=== PATIENT | female | born 1975 | race Caucasian/White ===

== ENCOUNTER → 2019-01-20 | Day surgery (SDC) | payer OTHER ==
[2019-01-17 15:55] VITALS: BMI 34.2
[~2019-01-20] MED LIST: LACTATED RINGERS 1,000 ML IV SCH; LIDOCAINE 1% INJ 10MG/ML (20 ML MDV) ONE; PROPOFOL 10 MG/ML 20 ML VIAL IV ONE
[2019-01-20 11:43] VITALS: TEMP 97.2
--- NOTE | 2019-01-20 12:40 | P.GSHP ---
History of Present Illness H&P Date: 01/20/19 Chief Complaint: Iron deficiency anemia history of ulcers blood in stool Patient here today for upper and lower endoscopy. Recently found to be anemic. Patient is a history of chronic anemia. Recently had stool test which was positive for blood. History of ulcers. Takes antiacids daily. Past Medical History Past Medical History: GERD/Reflux, GI Bleed Additional Past Medical History / Comment(s): PAT HX OF HEAD TRAUMA, ULCERS, ANEMIA, + HEMOCCULT, FREQ BRONCHITIS AND SINUS AND EAR INFECTIONS, ALSO HAS HAD BLOOD IN STOOL, VERTIGO History of Any Multi-Drug Resistant Organisms: None Reported Past Surgical History: Section, Orthopedic Surgery Additional Past Surgical History / Comment(s): C-SEC X 2. COLONOSCOPY/EGD. RT CTR Past Anesthesia/Blood Transfusion Reactions: No Reported Reaction Smoking Status: Current every day smoker - Past Family History Mother Family Medical History: No Reported History Medications and Allergies Home Medications Medication Instructions Recorded Confirmed Type Albuterol Sulfate [Albuterol 2 puff PO Q6H PRN 01/17/19 01/20/19 History Sulfate Hfa] Beclomethasone Dipropionate [Qvar 1 puff INHALATION DAILY PRN 01/17/19 01/20/19 History 40 mcg Redihaler] Cholecalciferol [Vitamin D3 (25 1,000 units PO AC-LUNCH 01/17/19 01/20/19 History Mcg = 1000 Iu)] Diclofenac Sodium [Voltaren] 50 mg PO BID 01/17/19 01/20/19 History FLUoxetine HCL [PROzac] 40 mg PO AC-LUNCH 01/17/19 01/20/19 History Folic Acid 0.4 mg PO AC-LUNCH 01/17/19 01/20/19 History Loratadine 10 mg PO AC-LUNCH 01/17/19 01/20/19 History Omeprazole 20 mg PO AC-LUNCH 01/17/19 01/20/19 History Topiramate [Topamax] 100 mg PO AC-LUNCH 01/17/19 01/20/19 History busPIRone HCl [Buspar] 10 mg PO TID 01/17/19 01/20/19 History Allergies Allergy/AdvReac Type Severity Reaction Status Date / Time No Known Allergies Allergy Verified 01/20/19 11:46 Surgical - Exam Vital Signs Temp Pulse Resp BP Pulse Ox 97.2 F L 86 16 122/60 96 01/20/19 11:39 01/20/19 11:39 01/20/19 11:39 01/20/19 11:39 01/20/19 11:39 Physical exam: General: Well-developed, well-nourished HEENT: Normocephalic, sclerae nonicteric Abdomen: Nontender, nondistended Extremities: No edema Neuro: Alert and oriented Assessment and Plan (1) Blood in stool Narrative/Plan: Will proceed with upper and lower endoscopy Current Visit: Yes Status: Acute Code(s): K92.1 - MELENA SNOMED Code(s): 555537052
--- NOTE | 2019-01-20 12:58 | P.PCN ---
Date of Procedure: 01/20/19 Procedure(s) Performed: PREOPERATIVE DIAGNOSIS: Blood in stool, anemia POSTOPERATIVE DIAGNOSIS: Gastritis, small hiatal hernia, normal colonoscopy PROCEDURE: 1. EGD with biopsy 2. Colonoscopy ANESTHESIA: MAC SURGEON: Oni Mckeon M.D. SPECIMENS: Antrum ENDOSCOPIC PROCEDURE: The patient was on the endoscopy table in the left decubitus position. The Olympus gastroscope was inserted into the oropharynx and passed under direct visualization to the region of the third portion of the duodenum. From that point the scope was slowly withdrawn inspecting all surfaces carefully. There were no neoplastic inflammatory or polypoid lesions throughout the duodenum. The pylorus was widely patent. The stomach was carefully inspected. There was mild gastritis present. A biopsy of the antrum took place to rule out H. pylori. Retroflexion revealed a small hiatal hernia. The GE junction was present 1.5 cm above the diaphragmatic hiatus. The remainder the esophagus examined appeared normal. The patient was kept on the endoscopy table in the left decubitus position. The Olympus colonoscope was inserted into the anus and passed under direct visualization to the base of the cecum. The appendiceal orifice was visualized. From that point the scope was slowly withdrawn inspecting all surfaces carefully. There were no neoplastic inflammatory or polypoid lesions throughout the cecum, ascending, transverse, descending, sigmoid and rectum. There was no visible diverticulosis noted. Digital rectal examination was normal. The patient was taken to the recovery room in stable condition per anesthesia guidelines. RECOMMENDATIONS: Increase fiber. Follow-up colonoscopy in 10 years. Continue anemia workup.
[2019-01-20 13:22] VITALS: BP 119/62; PULSE 77; RESP 17
== END | disposition home or self-care (01) ==
LOC: ORWHC2ENDO 11:24
PROVIDERS: ATTEND Surgery
DX: K29.70 Gastritis, unspecified, without bleeding (principal); K44.9 Diaphragmatic hernia without obstruction or gangrene; D50.9 Iron deficiency anemia, unspecified; F17.200 Nicotine dependence, unspecified, uncomplicated; K21.9 Gastro-esophageal reflux disease without esophagitis; K31.9 Disease of stomach and duodenum, unspecified; Z79.899 Other long term (current) drug therapy
CPT/HCPCS: 81025; 88305; 45378; 43239; J2001; J2704

== ENCOUNTER 2019-02-11 20:13 | Emergency (ER) | payer OTHER ==
--- NOTE | 2019-02-11 20:42 | ED ---
Psych HPI - General Source: patient, family, RN notes reviewed, old records reviewed Mode of arrival: ambulatory - History of Present Illness MD Complaint: suicidal ideation, feels depressed, other (Patient appears intoxicated) -: unknown Associated Psychiatric Symptoms: depression, suicidal ideation History of same: Yes Quality: constant, getting worse Improves With: none Worsens With: alcohol Context: recent alcohol abuse Associated Symptoms: denies other symptoms Treatments Prior to Arrival: placed on mental health hold If Self Harm: admits thoughts of self harm, has plan <Zay Lagunas - Last Filed: 02/11/19 23:35> <Naren Armstrong - Last Filed: 02/12/19 11:51> - General Chief Complaint: Psychiatric Symptoms Stated Complaint: mental health Time Seen by Provider: 02/11/19 20:41 - History of Present Illness Initial Comments: This is a 43-year-old female the ER for evaluation. Patient initially told triage that she was here for evaluation regards to mental health suicidal, patient admits that she does not feel well she is vomiting and pain blood. Hemoglobin is very low as well as low patient passing through both. Patient denies any drugs, doesn't to drinking alcohol this morning. Denies any pain. (Zay Lagunas) - Related Data Home Medications Medication Instructions Recorded Confirmed Albuterol Sulfate [Albuterol 2 puff INHALATION RT-Q6H PRN 01/17/19 02/12/19 Sulfate Hfa] Beclomethasone Dipropionate [Qvar 1 puff INHALATION RT-BID 01/17/19 02/12/19 40 mcg Redihaler] Cholecalciferol [Vitamin D3 (25 1,000 units PO AC-LUNCH 01/17/19 02/12/19 Mcg = 1000 Iu)] Diclofenac Sodium [Voltaren] 50 mg PO BID 01/17/19 02/12/19 FLUoxetine HCL [PROzac] 40 mg PO DAILY 01/17/19 02/12/19 Folic Acid 0.4 mg PO DAILY 01/17/19 02/12/19 Loratadine 10 mg PO DAILY 01/17/19 02/12/19 Omeprazole 20 mg PO DAILY 01/17/19 02/12/19 Topiramate [Topamax] 50 mg PO BID 01/17/19 02/12/19 busPIRone HCl [Buspar] 10 mg PO TID 01/17/19 02/12/19 Allergies Allergy/AdvReac Type Severity Reaction Status Date / Time No Known Allergies Allergy Verified 02/12/19 11:12 Review of Systems ROS Other: All systems not noted in ROS Statement are negative. <Zay Lagunas - Last Filed: 02/11/19 23:35> ROS Other: All systems not noted in ROS Statement are negative. <Naren Armstrong - Last Filed: 02/12/19 11:51> ROS Statement: Those systems with pertinent positive or pertinent negative responses have been documented in the HPI. Past Medical History Past Medical History: GERD/Reflux, GI Bleed Additional Past Medical History / Comment(s): PAT HX OF HEAD TRAUMA, ULCERS, ANEMIA, + HEMOCCULT, FREQ BRONCHITIS AND SINUS AND EAR INFECTIONS, ALSO HAS HAD BLOOD IN STOOL, VERTIGO History of Any Multi-Drug Resistant Organisms: None Reported Past Surgical History: Section, Orthopedic Surgery Additional Past Surgical History / Comment(s): C-SEC X 2. COLONOSCOPY/EGD. RT CTR Past Anesthesia/Blood Transfusion Reactions: No Reported Reaction Past Psychological History: Anxiety, Depression Smoking Status: Current every day smoker Past Alcohol Use History: None Reported, Daily, Heavy Past Drug Use History: None Reported - Past Family History Mother Family Medical History: No Reported History <Zay Lagunas - Last Filed: 02/11/19 23:35> General Exam Limitations: no limitations General appearance: alert, in no apparent distress, appears intoxicated Head exam: Present: atraumatic, normocephalic, normal inspection Eye exam: Present: normal appearance, PERRL, EOMI. Absent: scleral icterus, conjunctival injection, periorbital swelling ENT exam: Present: normal exam, mucous membranes moist Neck exam: Present: normal inspection. Absent: tenderness, meningismus, lymphadenopathy Respiratory exam: Present: normal lung sounds bilaterally. Absent: respiratory distress, wheezes, rales, rhonchi, stridor Cardiovascular Exam: Present: regular rate, normal rhythm, normal heart sounds. Absent: systolic murmur, diastolic murmur, rubs, gallop, clicks GI/Abdominal exam: Present: soft, normal bowel sounds. Absent: distended, tenderness, guarding, rebound, rigid Extremities exam: Present: normal inspection, full ROM, normal capillary refill. Absent: tenderness, pedal edema, joint swelling, calf tenderness Back exam: Present: normal inspection Neurological exam: Present: alert, oriented X3, CN II-XII intact Psychiatric exam: Present: normal affect, normal mood Skin exam: Present: warm, dry, intact, normal color. Absent: rash <Zay Lagunas - Last Filed: 02/11/19 23:35> Course <Zay Lagunas - Last Filed: 02/11/19 23:35> Vital Signs 02/11/19 02/12/19 02/12/19 20:26 06:52 08:05 Temperature 98.5 F Pulse Rate 101 H 67 61 Respiratory 20 16 16 Rate Blood Pressure 132/71 110/66 130/70 O2 Sat by Pulse 95 98 97 Oximetry - Reevaluation(s) Reevaluation #1: 02/11/19 23:35 Medical record reviewed (Zay Lagunas) Reevaluation #2: 02/11/19 23:35 No findings on medical testing, patient's medical clear for psych once sober (Zay Lagunas) Medical Decision Making - Lab Data Result diagrams: 02/11/19 22:00 02/11/19 22:00 <Zay Lagunas - Last Filed: 02/11/19 23:35> - Lab Data Result diagrams: 02/11/19 22:00 02/11/19 22:00 <Naren Armstrong - Last Filed: 02/12/19 11:51> - Medical Decision Making Patient seen by mental health services with plans to transfer patient. Patient reevaluated by myself, Dr. Armstrong. Patient resting comfortably in bed. Abdomen soft and nontender. No physical complaints at this time. Patient does admit to feeling depressed and having suicidal thoughts. Positive clinical certificate completed. (Naren Armstrong) - Lab Data Lab Results 02/11/19 02/11/19 02/11/19 Range/Units 22:00 22:00 22:00 WBC 6.3 (3.8-10.6) k/uL RBC 4.32 (3.80-5.40) m/uL Hgb 11.2 L (11.4-16.0) gm/dL Hct 35.9 (34.0-46.0) % MCV 83.1 (80.0-100.0) fL MCH 26.0 (25.0-35.0) pg MCHC 31.3 (31.0-37.0) g/dL RDW 18.0 H (11.5-15.5) % Plt Count 225 (150-450) k/uL Neutrophils % 46 % Lymphocytes % 43 % Monocytes % 5 % Eosinophils % 1 % Basophils % 1 % Neutrophils # 2.9 (1.3-7.7) k/uL Lymphocytes # 2.8 (1.0-4.8) k/uL Monocytes # 0.3 (0-1.0) k/uL Eosinophils # 0.1 (0-0.7) k/uL Basophils # 0.0 (0-0.2) k/uL Hypochromasia Slight Anisocytosis Slight Sodium 144 (137-145) mmol/L Potassium 3.8 (3.5-5.1) mmol/L Chloride 109 H (98-107) mmol/L Carbon Dioxide 24 (22-30) mmol/L Anion Gap 11 mmol/L BUN 15 (7-17) mg/dL Creatinine 0.79 (0.52-1.04) mg/dL Est GFR (CKD-EPI)AfAm >90 (>60 ml/min/1.73 sqM) Est GFR (CKD-EPI)NonAf >90 (>60 ml/min/1.73 sqM) Glucose 92 (74-99) mg/dL Calcium 8.3 L (8.4-10.2) mg/dL Phosphorus 3.0 (2.5-4.5) mg/dL Magnesium 1.9 (1.6-2.3) mg/dL Total Bilirubin 0.2 (0.2-1.3) mg/dL AST 28 (14-36) U/L ALT 13 (9-52) U/L Alkaline Phosphatase 63 (38-126) U/L Creatine Kinase 84 (30-135) U/L Troponin I (0.000-0.034) ng/mL NT-Pro-B Natriuret Pep pg/mL Total Protein 7.6 (6.3-8.2) g/dL Albumin 4.2 (3.5-5.0) g/dL TSH 5.150 H (0.465-4.680) mIU/L Urine Color Yellow Urine Appearance Clear (Clear) Urine pH 5.5 (5.0-8.0) Ur Specific [place] 1.025 (1.001-1.035) Urine Protein 1+ H (Negative) Urine Glucose (UA) Negative (Negative) Urine Ketones Negative (Negative) Urine Blood Large H (Negative) Urine Nitrite Negative (Negative) Urine Bilirubin Negative (Negative) Urine Urobilinogen <2.0 (<2.0) mg/dL Ur Leukocyte Esterase Negative (Negative) Urine RBC 1 (0-5) /hpf Urine WBC 3 (0-5) /hpf Ur Squamous Epith Cells 2 (0-4) /hpf Urine Mucus Many H (None) /hpf Salicylates <1.0 mg/dL Urine Opiates Screen Not Detected (NotDetected) Ur Oxycodone Screen Not Detected (NotDetected) Urine Methadone Screen Not Detected (NotDetected) Ur Propoxyphene Screen Not Detected (NotDetected) Acetaminophen <10.0 ug/mL Ur Barbiturates Screen Not Detected (NotDetected) U Tricyclic Antidepress Not Detected (NotDetected) Ur Phencyclidine Scrn Not Detected (NotDetected) Ur Amphetamines Screen Not Detected (NotDetected) U Methamphetamines Scrn Not Detected (NotDetected) U Benzodiazepines Scrn Detected H (NotDetected) Urine Cocaine Screen Not Detected (NotDetected) U Marijuana (THC) Screen Detected H (NotDetected) Serum Alcohol 263 H* mg/dL 02/11/19 02/11/19 Range/Units 22:00 22:00 WBC (3.8-10.6) k/uL RBC (3.80-5.40) m/uL Hgb (11.4-16.0) gm/dL Hct (34.0-46.0) % MCV (80.0-100.0) fL MCH (25.0-35.0) pg MCHC (31.0-37.0) g/dL RDW (11.5-15.5) % Plt Count (150-450) k/uL Neutrophils % % Lymphocytes % % Monocytes % % Eosinophils % % Basophils % % Neutrophils # (1.3-7.7) k/uL Lymphocytes # (1.0-4.8) k/uL Monocytes # (0-1.0) k/uL Eosinophils # (0-0.7) k/uL Basophils # (0-0.2) k/uL Hypochromasia Anisocytosis Sodium (137-145) mmol/L Potassium (3.5-5.1) mmol/L Chloride (98-107) mmol/L Carbon Dioxide (22-30) mmol/L Anion Gap mmol/L BUN (7-17) mg/dL Creatinine (0.52-1.04) mg/dL Est GFR (CKD-EPI)AfAm (>60 ml/min/1.73 sqM) Est GFR (CKD-EPI)NonAf (>60 ml/min/1.73 sqM) Glucose (74-99) mg/dL Calcium (8.4-10.2) mg/dL Phosphorus (2.5-4.5) mg/dL Magnesium (1.6-2.3) mg/dL Total Bilirubin (0.2-1.3) mg/dL AST (14-36) U/L ALT (9-52) U/L Alkaline Phosphatase (38-126) U/L Creatine Kinase (30-135) U/L Troponin I <0.012 (0.000-0.034) ng/mL NT-Pro-B Natriuret Pep 90 pg/mL Total Protein (6.3-8.2) g/dL Albumin (3.5-5.0) g/dL TSH (0.465-4.680) mIU/L Urine Color Urine Appearance (Clear) Urine pH (5.0-8.0) Ur Specific [place] (1.001-1.035) Urine Protein (Negative) Urine Glucose (UA) (Negative) Urine Ketones (Negative) Urine Blood (Negative) Urine Nitrite (Negative) Urine Bilirubin (Negative) Urine Urobilinogen (<2.0) mg/dL Ur Leukocyte Esterase (Negative) Urine RBC (0-5) /hpf Urine WBC (0-5) /hpf Ur Squamous Epith Cells (0-4) /hpf Urine Mucus (None) /hpf Salicylates mg/dL Urine Opiates Screen (NotDetected) Ur Oxycodone Screen (NotDetected) Urine Methadone Screen (NotDetected) Ur Propoxyphene Screen (NotDetected) Acetaminophen ug/mL Ur Barbiturates Screen (NotDetected) U Tricyclic Antidepress (NotDetected) Ur Phencyclidine Scrn (NotDetected) Ur Amphetamines Screen (NotDetected) U Methamphetamines Scrn (NotDetected) U Benzodiazepines Scrn (NotDetected) Urine Cocaine Screen (NotDetected) U Marijuana (THC) Screen (NotDetected) Serum Alcohol mg/dL Disposition <Zay Lagunas - Last Filed: 02/11/19 23:35> Is patient prescribed a controlled substance at d/c from ED?: No Time of Disposition: 11:51 <Naren Armstrong - Last Filed: 02/12/19 11:51> Clinical Impression: Depression, Suicidal ideation Disposition: TRANSFER TO PSYCH HOSP/UNIT Referrals: Teresa Gordon MD [Primary Care Provider] - 1-2 days
[2019-02-11] MEDS ORDERED: SODIUM CHLORIDE 0.9% 1,000 ML IV STA ×2 (21:28)
[2019-02-11 22:14] LABS: Anisocytosis Slight; Appearance,Urine Clear (Clear); Basophils % (A) 1 %; Bilirubin,Urine Negative (Negative); Blood,Urine Large (Negative); Color,Urine Yellow; Eosinophils # (A) 0.1 k/uL (0-0.7); Eosinophils % (A) 1 %; Glucose,Urine (UA) Negative (Negative); HCT 35.9 % (34.0-46.0); HGB 11.2 gm/dL (11.4-16.0); Hypochromasia Slight; Ketones,Urine Negative (Negative); Leukocyte Esterase,Urine Negative (Negative); Lymphocytes # (A) 2.8 k/uL (1.0-4.8); Lymphocytes % (A) 43 %; MCHC 31.3 g/dL (31.0-37.0); MCV 83.1 fL (80.0-100.0); Mean Platelet Volume 6.4; Monocytes # (A) 0.3 k/uL (0-1.0); Monocytes % (A) 5 %; Mucus,Urine Many /hpf; Neutrophils # (A) 2.9 k/uL (1.3-7.7); Neutrophils % (A) 46 %; Nitrite,Urine Negative (Negative); PH, Urine 5.5 (5.0-8.0); Platelet Count 225 k/uL (150-450); Protein,Urine 1+ (Negative); RBC 4.32 m/uL (3.80-5.40); RBC,Urine 1 /hpf (0-5); Specific Gravity,Urine 1.025 (1.001-1.035); Squamous Epithelial Cell,Urine 2 /hpf (0-4); Urobilinogen,Urine <2.0 mg/dL (<2.0); WBC 6.3 k/uL (3.8-10.6); WBC,Urine 3 /hpf (0-5)
[2019-02-11 22:21] LABS: ALT 13 U/L (9-52); AST 28 U/L (14-36); Acetaminophen <10.0 ug/mL; African American GFR (CKD) >90 (>60 ml/min/1.73 sqM); Albumin 4.2 g/dL (3.5-5.0); Alkaline Phosphatase 63 U/L (38-126); Anion Gap 11 mmol/L; Blood Urea Nitrogen 15 mg/dL (7-17); Calcium 8.3 mg/dL (8.4-10.2); Carbon Dioxide 24 mmol/L (22-30); Chloride 109 mmol/L (98-107); Creatine Kinase 84 U/L (30-135); Glucose 92 mg/dL (74-99); Magnesium 1.9 mg/dL (1.6-2.3); Potassium 3.8 mmol/L (3.5-5.1); Salicylate <1.0 mg/dL; Sodium 144 mmol/L (137-145); Total Bilirubin 0.2 mg/dL (0.2-1.3); Total Protein 7.6 g/dL (6.3-8.2)
[2019-02-11 22:22] LABS: Alcohol 263 mg/dL
[2019-02-11 22:26] LABS: Amphetamine Screen,Urine Not Detected (NotDetected); Barbiturate Screen,Urine Not Detected (NotDetected); Benzodiazepines Screen,Urine Detected (NotDetected); Cocaine Screen,Urine Not Detected (NotDetected); Methadone Screen, Urine Not Detected (NotDetected); Opiate Screen,Urine Not Detected (NotDetected); Oxycodone Screen, Urine Not Detected (NotDetected); Phencyclidine Screen,Urine Not Detected (NotDetected); Tricyclic Antidepressant,Urine Not Detected (NotDetected); Urn Cannabinoid Scrn Detected (NotDetected)
[2019-02-12] MEDS ORDERED: ONDANSETRON 4 MG/2 ML VIAL IVP STA (10:38)
[2019-02-12] MEDS ORDERED: LORazepam 2 MG/ML INJ IV PRN ×2 (11:31)
[2019-02-12] MEDS: LORazepam 2 MG/ML INJ IV PRN ×4 (11:52→22:52)
[2019-02-13 01:58] VITALS: RESP 16
[2019-02-13] MEDS: LORazepam 2 MG/ML INJ IV PRN ×2 (02:01→05:05)
[2019-02-13] MEDS ORDERED: IBUPROFEN 600 MG TAB PO STA (04:51)
[2019-02-13] MEDS ORDERED: ACETAMINOPHEN TAB 325 MG TAB PO STA (08:55)
[2019-02-13 09:14] VITALS: BP 111/76; PULSE 73; TEMP 97.8
== END 2019-02-13 09:25 ==
LOC: EC 20:13
DX: F32.9 Major depressive disorder, single episode, unspecified (principal); R45.851 Suicidal ideations; K21.9 Gastro-esophageal reflux disease without esophagitis; D64.9 Anemia, unspecified; F41.9 Anxiety disorder, unspecified; F10.129 Alcohol abuse with intoxication, unspecified; F17.200 Nicotine dependence, unspecified, uncomplicated; Z98.890 Other specified postprocedural states; Z79.1 Long term (current) use of non-steroidal anti-inflammatories (NSAID); Z79.51 Long term (current) use of inhaled steroids; Z79.899 Other long term (current) drug therapy; Y90.8 Blood alcohol level of 240 mg/100 ml or more
CPT/HCPCS: 82075; 36415; 83880; 80053; 82550; 83735; 84100; 84443; 84484; 85025; 81001; 80306; 83520; 87086; 99285; 96374; 96375; 96376 ×6; 96361 ×13; G0480 ×2; J2060 ×2; J2405; 80320; 80329

== ENCOUNTER → 2019-04-13 | Outpatient (CLI) | payer OTHER ==
--- NOTE | 2019-04-14 00:09 | MR ---
EXAMINATION TYPE: MR brain wo/w con DATE OF EXAM: 04/13/2019 COMPARISON: 11/05/2015 HISTORY: Memory loss, headaches, dizziness, hx of multiple head injuries, most recently December 2018 TECHNIQUE: Multiplanar, multisequence images of the brain and brainstem is performed without and with IV contras t, utilizing 7.5 mL intravenous Gadavist . FINDINGS: There is some cerebral cortical mild atrophy. There is no mass effect nor midline shift. Th ere is no sign of intracranial hemorrhage. There is no evidence of cortical infarct. There are scatte red white matter high signal foci in both cerebral hemispheres that measure up to 1 cm on the T2 and FLAIR images. These are seen in the betancourt-white matter junction. Total number is approximately 15. The brainstem is intact. Cerebellum is intact. There is no evidence of posterior fossa mass. Sella turci ca appears normal. Corpus callosum appears normal. The contrast images show no pathologic enhancement .. IMPRESSION: Numerous white matter lesions on the T2 and FLAIR images. There are new lesions in the an terior temporal lobes compared to old exam. There are new lesions left parietal lobe compared to old exam. There are new small lesions right posterior temporal lobe compared to old exam. This could rela te to small vessel ischemia or demyelinating disease.
== END ==
LOC: RADMRIMAIN 16:38
PROVIDERS: ATTEND Family Medicine
DX: G93.89 Other specified disorders of brain (principal); R42 Dizziness and giddiness; Z87.828 Personal history of other (healed) physical injury and trauma; R51 Headache; R41.3 Other amnesia
CPT/HCPCS: 70553; A9585

== ENCOUNTER → 2019-06-12 | Outpatient (CLI) | payer OTHER ==
[2019-06-12 21:24] LABS: Total Protein,CSF 24 mg/dL (12-60)
[2019-06-12 23:05] LABS: Appearance,CSF Clear; CSF Tube Number 4; CSF Tube Volume 2.5; Nucleated Cells, CSF 0 u/L (0-5); Red Blood Cell,CSF 1 u/L (0-10)
[2019-06-14 12:43] LABS: IgG - CSF 1.6 mg/dL (0.0 - 3.4); IgG/Albumin Index (CSF) 0.52 (0.00 - 0.77); Immunoglobulin G 967 mg/dL (700 - 1600)
== END | disposition home or self-care (01) ==
LOC: LABWHC1 10:54
PROVIDERS: ATTEND Nurse Practitioner Acute Care
DX: G35 Multiple sclerosis (principal)
CPT/HCPCS: 36415; 82040; 82042; 82784; 83873; 83916; 84157; 87801; 89050

== ENCOUNTER 2023-06-12 11:37 | Inpatient (IN) | payer OTHER ==
[2023-06-12] MEDS ORDERED: HYDROmorphone 1 MG/ML 1 ML SYRINGE IVP STA ×4 (11:48→13:29)
[2023-06-12] MEDS ORDERED: SODIUM CHLORIDE 0.9% 1,000 ML IV STA ×2 (12:07→13:39)
[2023-06-12] MEDS ORDERED: RX INFO: IV CONTRAST WAS GIVEN 1 EACH MISC MISCELLANE PRN (12:08)
[2023-06-12 12:21] LABS: Anisocytosis Slight; Basophils % (A) 0 %; Eosinophils # (A) 0.2 k/uL (0-0.7); Eosinophils % (A) 2 %; HCT 48.7 % (34.0-46.0); HGB 16.4 gm/dL (11.4-16.0); Lymphocytes # (A) 2.6 k/uL (1.0-4.8); Lymphocytes % (A) 19 %; MCH 37.5 pg (25.0-35.0); MCHC 33.7 g/dL (31.0-37.0); MCV 111.2 fL (80.0-100.0); Macrocytosis Marked; Mean Platelet Volume 7.4; Monocytes # (A) 0.4 k/uL (0-1.0); Monocytes % (A) 3 %; Neutrophils # (A) 10.1 k/uL (1.3-7.7); Neutrophils % (A) 75 %; Platelet Count 311 k/uL (150-450); RBC 4.38 m/uL (3.80-5.40); RDW 17.3 % (11.5-15.5); WBC 13.5 k/uL (3.8-10.6)
--- NOTE | 2023-06-12 12:22 | ED ---
General Adult HPI - General Chief complaint: Extremity Injury, Lower Stated complaint: leg pain Time Seen by Provider: 06/12/23 11:41 Source: patient, EMS, RN notes reviewed Mode of arrival: EMS Limitations: no limitations - History of Present Illness Initial comments: Patient is a pleasant 47-year-old female presenting to the emergency department with concerns for leg pain. Onset of symptoms was prior to arrival. Patient states discomfort is severe. Patient states she was lying down when it started. No history of similar symptoms previously. Patient admits to having episodes of vomiting over the past week and has not been tolerating much oral intake. Patient does feel dehydrated. No back pain. - Related Data Home Medications Medication Instructions Recorded Confirmed Albuterol Sulfate [Albuterol 2 puff INHALATION RT-Q6H PRN 01/17/19 02/12/19 Sulfate Hfa] Beclomethasone Dipropionate [Qvar 1 puff INHALATION RT-BID 01/17/19 02/12/19 40 mcg Redihaler] Cholecalciferol [Vitamin D3 (25 1,000 units PO AC-LUNCH 01/17/19 02/12/19 Mcg = 1000 Iu)] Diclofenac Sodium [Voltaren] 50 mg PO BID 01/17/19 02/12/19 FLUoxetine HCL [PROzac] 40 mg PO DAILY 01/17/19 02/12/19 Folic Acid 0.4 mg PO DAILY 01/17/19 02/12/19 Loratadine 10 mg PO DAILY 01/17/19 02/12/19 Omeprazole 20 mg PO DAILY 01/17/19 02/12/19 Topiramate [Topamax] 50 mg PO BID 01/17/19 02/12/19 busPIRone HCl [Buspar] 10 mg PO TID 01/17/19 02/12/19 Allergies Allergy/AdvReac Type Severity Reaction Status Date / Time No Known Allergies Allergy Verified 06/12/23 11:52 Review of Systems ROS Statement: Those systems with pertinent positive or pertinent negative responses have been documented in the HPI. ROS Other: All systems not noted in ROS Statement are negative. Constitutional: Denies: fever Eyes: Denies: eye pain ENT: Denies: ear pain Respiratory: Denies: dyspnea Cardiovascular: Denies: chest pain Endocrine: Denies: fatigue Gastrointestinal: Reports: as per HPI, nausea, vomiting. Denies: abdominal pain Musculoskeletal: Reports: as per HPI. Denies: back pain Past Medical History Past Medical History: GERD/Reflux, GI Bleed Additional Past Medical History / Comment(s): PAT HX OF HEAD TRAUMA, ULCERS, ANEMIA, + HEMOCCULT, FREQ BRONCHITIS AND SINUS AND EAR INFECTIONS, ALSO HAS HAD BLOOD IN STOOL, VERTIGO History of Any Multi-Drug Resistant Organisms: None Reported Past Surgical History: Section, Orthopedic Surgery Additional Past Surgical History / Comment(s): C-SEC X 2. COLONOSCOPY/EGD. RT CTR Past Anesthesia/Blood Transfusion Reactions: No Reported Reaction Past Psychological History: Anxiety, Depression Smoking Status: Current every day smoker Past Alcohol Use History: None Reported, Daily, Heavy Past Drug Use History: None Reported - Past Family History Mother Family Medical History: No Reported History General Exam Limitations: no limitations General appearance: alert Head exam: Present: normocephalic Eye exam: Present: normal appearance ENT exam: Present: mucous membranes dry Neck exam: Present: normal inspection Respiratory exam: Present: normal lung sounds bilaterally Cardiovascular Exam: Present: regular rate, normal rhythm Expanded Peripheral pulses: 0: Posterior Tibialis (R), Posterior Tibialis (L), Dorsalis Pedis (R), Dorsalis Pedis (L), 2+: Femoral (R), Femoral (L) GI/Abdominal exam: Present: soft. Absent: tenderness, pulsatile mass Extremities exam: Present: normal capillary refill, other (Right leg mottled. Right leg is not cold. Leg is not firm. Patient has significant pain of the lower leg with palpation of the femoral artery.). Absent: calf tenderness Neurological exam: Present: alert Psychiatric exam: Present: anxious Skin exam: Present: other (Right leg mottled.) Course Vital Signs 06/12/23 06/12/23 11:39 13:12 Temperature 97.6 F Pulse Rate 95 87 Respiratory 36 H 24 Rate Blood Pressure 123/84 123/81 O2 Sat by Pulse 100 95 Oximetry EKG Findings - EKG Results: EKG: interpreted by ERMD, sinus rhythm, normal axis, normal QRS, normal ST/T Medical Decision Making - Medical Decision Making Unable to obtain pulses right pedal with palpation or with Doppler. Case was discussed with Dr. Denton, who agrees with fluids and states he is currently in the operating room in [place]. He recommends calling Dr. Higginbotham or transferring to [place] if needed after CT. Case discussed with Dr. Higginbotham who will review the scan and call back. Was pt. sent in by a medical professional or institution ([facility], VOCATIONAL PSYCHOLOGIST, urgent care, hospital, or fdc...) When possible be specific @ -No Did you speak to anyone other than the patient for history (EMS, parent, family, police, friend...)? What history was obtained from this source @ -EMS tells provides history as well Did you review nursing and triage notes (agree or disagree)? Why? @ -I reviewed and agree with nursing and triage notes Were old charts reviewed (outside hosp., previous admission, EMS record, old EKG, old radiological studies, urgent care reports/EKG's, fdc records)? Report findings @ -No old charts were reviewed Differential Diagnosis (chest pain, altered mental status, abdominal pain women, abdominal pain men, vaginal bleeding, weakness, fever, dyspnea, syncope, headache, dizziness, GI bleed, back pain, seizure, CVA, palpatations, mental health, musculoskeletal)? @ -Differential Musculoskeletal Muscular strain, contusion, ligament sprain, fracture, arthritis, septic arthritis, bursitis, cellulitis, muscle spasm, nerve compression, DVT, arterial occlusion, herpes zoster, electrolyte abnormality, tumor.... This is not meant to be in all inclusive list EKG interpreted by me (3pts min.). @ -As above X-rays interpreted by me (1pt min.). @ -None done CT interpreted by me (1pt min.). @ -Computed tomography scan shows arterial occlusion U/S interpreted by me (1pt. min.). @ -None done What testing was considered but not performed or refused? (CT, X-rays, U/S, labs)? Why? @ -Considered ultrasound of the penis however patient presents with symptoms more consistent with arterial occlusion What meds were considered but not given or refused? Why? @ -None Did you discuss the management of the patient with other professionals (professionals i.e. , [facility], VOCATIONAL PSYCHOLOGIST, lab, RT, psych nurse, neonatal social worker, lens generator, teacher, credit control officer, case managers)? Give summary @ -Case again discussed with Dr. Higginbotham who will take patient to [facility]. Distance Education Faculty Liaison has been called and. Patient will have intra-arterial TPA. Medicine has also been paged for admission. Was smoking cessation discussed for >3mins.? @ -No Was critical care preformed (if so, how long)? @ -32 minutes critical care time Were there social determinants of health that impacted care today? How? (Homelessness, low income, unemployed, alcoholism, drug addiction, transport ation, low edu. Level, literacy, decrease access to med. care, skilled nursing, rehab)? @ -No Was there de-escalation of care discussed even if they declined (Discuss DNR or withdrawal of care, Hospice)? DNR status @ -No What co-morbidities impacted this encounter? (DM, HTN, Smoking, COPD, CAD, Cancer, CVA, ARF, Chemo, Hep., AIDS, mental health diagnosis, sleep apnea, morbid obesity)? @ -None Was patient admitted / discharged? Hospital course, mention meds given and route, prescriptions, significant lab abnormalities, going to OR and other pertinent info. @ -Patient will be admitted. IV heparin started. Patient reevaluated several times. Patient states symptoms are starting to improve and pain is 6/10. Patient is updated on results and plan. Admission orders written. Undiagnosed new problem with uncertain prognosis? @ -No Drug Therapy requiring intensive monitoring for toxicity (Heparin, Nitro, Insulin, Cardizem)? @ -Patient will be started on heparin drip any monitoring for this. Were any procedures done? @ -No Diagnosis/symptom? @ -Arterial occlusion Acute, or Chronic, or Acute on Chronic? @ -Acute Uncomplicated (without systemic symptoms) or Complicated (systemic symptoms)? @ -default Side effects of treatment? @ -No Exacerbation, Progression, or Severe Exacerbation? @ -No Poses a threat to life or bodily function? How? (Chest pain, [place], AL, pneumonia, PE, COPD, DKA, ARF, appy, cholecystitis, CVA, Diverticulitis, Homicidal, Suicidal, threat to staff... and all critical care pts) @ -Potential loss of limb with arterial occlusion - Lab Data Result diagrams: 06/12/23 12:11 06/12/23 12:11 Lab Results 06/12/23 06/12/23 06/12/23 Range/Units 12:11 12:11 12:11 WBC 13.5 H (3.8-10.6) k/uL RBC 4.38 (3.80-5.40) m/uL Hgb 16.4 H (11.4-16.0) gm/dL Hct 48.7 H (34.0-46.0) % MCV 111.2 H (80.0-100.0) fL MCH 37.5 H (25.0-35.0) pg MCHC 33.7 (31.0-37.0) g/dL RDW 17.3 H (11.5-15.5) % Plt Count 311 (150-450) k/uL MPV 7.4 Neutrophils % 75 % Lymphocytes % 19 % Monocytes % 3 % Eosinophils % 2 % Basophils % 0 % Neutrophils # 10.1 H (1.3-7.7) k/uL Lymphocytes # 2.6 (1.0-4.8) k/uL Monocytes # 0.4 (0-1.0) k/uL Eosinophils # 0.2 (0-0.7) k/uL Basophils # 0.0 (0-0.2) k/uL Manual Slide Review Performed Anisocytosis Slight Macrocytosis Marked A PT 12.3 (10.0-12.5) sec INR 1.2 H (<1.2) APTT 22.0 (22.0-30.0) sec Sodium 137 (137-145) mmol/L Potassium 2.4 L* (3.5-5.1) mmol/L Chloride 101 (98-107) mmol/L Carbon Dioxide 12 L (22-30) mmol/L Anion Gap 24 mmol/L BUN 8 (7-17) mg/dL Creatinine 0.86 (0.52-1.04) mg/dL Est GFR (CKD-EPI)AfAm >90 (>60 ml/min/1.73 sqM) Est GFR (CKD-EPI)NonAf 81 (>60 ml/min/1.73 sqM) Glucose 219 H (74-99) mg/dL Plasma Lactic Acid Manuel (0.7-2.0) mmol/L Calcium 9.4 (8.4-10.2) mg/dL Total Bilirubin 1.2 (0.2-1.3) mg/dL AST 63 H (14-36) U/L ALT 46 H (4-34) U/L Alkaline Phosphatase 134 H (38-126) U/L Total Protein 7.3 (6.3-8.2) g/dL Albumin 3.8 (3.5-5.0) g/dL Serum Alcohol <10 mg/dL 06/12/23 Range/Units 12:11 WBC (3.8-10.6) k/uL RBC (3.80-5.40) m/uL Hgb (11.4-16.0) gm/dL Hct (34.0-46.0) % MCV (80.0-100.0) fL MCH (25.0-35.0) pg MCHC (31.0-37.0) g/dL RDW (11.5-15.5) % Plt Count (150-450) k/uL MPV Neutrophils % % Lymphocytes % % Monocytes % % Eosinophils % % Basophils % % Neutrophils # (1.3-7.7) k/uL Lymphocytes # (1.0-4.8) k/uL Monocytes # (0-1.0) k/uL Eosinophils # (0-0.7) k/uL Basophils # (0-0.2) k/uL Manual Slide Review Anisocytosis Macrocytosis PT (10.0-12.5) sec INR (<1.2) APTT (22.0-30.0) sec Sodium (137-145) mmol/L Potassium (3.5-5.1) mmol/L Chloride (98-107) mmol/L Carbon Dioxide (22-30) mmol/L Anion Gap mmol/L BUN (7-17) mg/dL Creatinine (0.52-1.04) mg/dL Est GFR (CKD-EPI)AfAm (>60 ml/min/1.73 sqM) Est GFR (CKD-EPI)NonAf (>60 ml/min/1.73 sqM) Glucose (74-99) mg/dL Plasma Lactic Acid Manuel 9.8 H* (0.7-2.0) mmol/L Calcium (8.4-10.2) mg/dL Total Bilirubin (0.2-1.3) mg/dL AST (14-36) U/L ALT (4-34) U/L Alkaline Phosphatase (38-126) U/L Total Protein (6.3-8.2) g/dL Albumin (3.5-5.0) g/dL Serum Alcohol mg/dL Critical Care Time Critical Care Time: Yes Total Critical Care Time: 35 Disposition Clinical Impression: Arterial occlusion Disposition: ADMITTED IP TO THIS [facility] Condition: Critical Is patient prescribed a controlled substance at d/c from ED?: No Referrals: None,Stated [Primary Care Provider] - 1-2 days Time of Disposition: 14:30
[2023-06-12 12:36] LABS: INR 1.2 (<1.2); Prothrombin Time 12.3 sec (10.0-12.5)
[2023-06-12 12:51] LABS: AST 63 U/L (14-36); African American GFR (CKD) >90 (>60 ml/min/1.73 sqM); Albumin 3.8 g/dL (3.5-5.0); Alcohol <10 mg/dL; Alkaline Phosphatase 134 U/L (38-126); Anion Gap 24 mmol/L; Blood Urea Nitrogen 8 mg/dL (7-17); Calcium 9.4 mg/dL (8.4-10.2); Carbon Dioxide 12 mmol/L (22-30); Chloride 101 mmol/L (98-107); Glucose 219 mg/dL (74-99); Non-African American GFR(CKD) 81 (>60 ml/min/1.73 sqM); Sodium 137 mmol/L (137-145); Total Bilirubin 1.2 mg/dL (0.2-1.3); Total Protein 7.3 g/dL (6.3-8.2)
[2023-06-12 12:57] LABS: ALT 46 U/L (4-34)
[2023-06-12 13:02] LABS: Potassium 2.4 mmol/L (3.5-5.1)
[2023-06-12] MEDS: POTASSIUM CHLORIDE 10 MEQ in WATER FOR INJECTION 1 100ML.BAG IVPB SCH ×2 (13:20→15:16)
--- NOTE | 2023-06-12 13:55 | CT ---
EXAMINATION TYPE: CT angio lower extremity RT DATE OF EXAM: 06/12/2023 COMPARISON: None HISTORY: 47-year-old female pain, RT lower extremity pain and mottling TECHNIQUE: Contiguous axial scanning of the lower abdomen and pelvis along with right lower extremity runoff performed with IV Contrast, patient injected with 100 mL of Isovue 370. Coronal/sagittal haroldo nstructions performed. 3-D reconstructions generated on a dedicated independent workstation. CT DLP: 1392.8 mGycm Automated exposure control for dose reduction was used. FINDINGS: Visualized abdominal structures show normal appendix. No significant stool burden. No dilated small b owel. Bladder is nondistended. Numerous pelvic phlebolith. Uterus anteverted. Both ovaries are visualized. No abnormal fluid collection in the pelvis or pelvic lymphadenopathy. Moderate irregular plaque throughout the visualized abdominal aorta prominently protruding into the a ortic lumen. For example, refer to axial image 16 series 401 as an example. The right common right external iliac arteries are patent. There is occlusion of the PIN OR CLIP FASTENER and upper SFA for a span of 5.7 cm. Despite the occlusion along this le claudia, enhancement is seen within the PFA. There is mild diffuse narrowing of the SFA after it reconstitutes. More focal severe stenosis at the level of the adductor hiatus, axial image 32. Mild diffuse stenosis also involves the upper to mid popliteal artery. The trifurcation vessels appear normal but there is loss of enhancement of the anterior tibial artery at the mid leg level and the peroneal artery becomes diminutive at the mid leg level. No longer seen at the distal third leg. There is faint runoff via posterior tibial artery. IMPRESSION: 1. Arterial occlusion at the junction of the right PIN OR CLIP FASTENER and SFA spanning nearly 6 cm. 2. Despite occlusion along this length, enhancement is seen within the PFA. 3. Following reconstitution of the SFA, there is mild diffuse caliber narrowing of the remainder of t he SFA but with more focal severe stenosis at the level of the adductor hiatus. 4. Mild diffuse narrowing continues down into the upper and mid popliteal artery. 5. Normal trifurcation but with loss of enhancement of the anterior tibial artery at the midleg level . 6. The peroneal artery becomes diminutive at the mid leg and is no longer seen at the distal third le g. 7. There is faint runoff via the posterior tibial artery. 8. Note, moderate irregular (possibly loose) noncalcified plaque within the visualized abdominal aort a.
[2023-06-12] MEDS ORDERED: HEPARIN SODIUM 1,000 UN/ML (10ML VL) IV PRN (14:27)
[2023-06-12] MEDS ORDERED: HEPARIN SODIUM 1,000 UN/ML (10ML VL) IV ONE (14:27)
[2023-06-12] MEDS ORDERED: NALOXONE 0.4 MG/ML 1 ML VIAL IV PRN (14:30)
[2023-06-12] MEDS ORDERED: Potassium Replacement Protocol 1 EACH MISC MISCELLANE PRN (14:30)
[2023-06-12] MEDS ORDERED: LIDOCAINE 1% INJ 10MG/ML (20 ML MDV) ONE (15:10)
[2023-06-12] MEDS: HEPARIN SOD,PORK IN 0.45% NACL 25,000 UNIT in 0.45% NACL 1 250ML.BAG IV SCH ×2 (15:17→18:10)
[2023-06-12] MEDS: PANTOPRAZOLE 40 MG/10 ML VIAL IV SCH (15:22)
[2023-06-12] MEDS ORDERED: IV FLUID CONTINUATION 950 ML IV ONE (15:35)
--- NOTE | 2023-06-12 15:56 | P.GSCN ---
History of Present Illness Consult date: 06/12/23 History of present illness: Patient is a 47-year-old female who presented to the ER with complaints of right lower extremity pain. She states that prior to arrival a few hours she began having significant pain in her right leg. Nothing seemed to be eliciting of the issue. She states her the past few months she's been not feeling very well overall. She's been having intermittent issues with nausea and vomiting. Occasionally she does feel dehydrated hasn't really been drinking enough. She is an admitted alcoholic at least a pint a day. She has been through rehab successfully in the past, but continues to drink at this point. She's never been through DTs. She denies any history of recent trauma. She denies any history of arrhythmia or abnormal feeling heartbeats. Past Medical History Past Medical History: GERD/Reflux, GI Bleed Additional Past Medical History / Comment(s): PAT HX OF HEAD TRAUMA, ULCERS, ANEMIA, + HEMOCCULT, FREQ BRONCHITIS AND SINUS AND EAR INFECTIONS, ALSO HAS HAD BLOOD IN STOOL, VERTIGO History of Any Multi-Drug Resistant Organisms: None Reported Past Surgical History: Section, Orthopedic Surgery Additional Past Surgical History / Comment(s): C-SEC X 2. COLONOSCOPY/EGD. RT CTR Past Anesthesia/Blood Transfusion Reactions: No Reported Reaction Past Psychological History: Anxiety, Depression Smoking Status: Current every day smoker Past Alcohol Use History: None Reported, Daily, Heavy Past Drug Use History: None Reported - Past Family History Mother Family Medical History: No Reported History Medications and Allergies Home Medications Medication Instructions Recorded Confirmed Type No Known Home Medications 06/12/23 06/12/23 History Allergies Allergy/AdvReac Type Severity Reaction Status Date / Time No Known Allergies Allergy Verified 06/12/23 15:08 Surgical - Exam Vital Signs Temp Pulse Resp BP Pulse Ox 97.6 F 95 36 H 123/84 100 06/12/23 11:39 06/12/23 11:39 06/12/23 11:39 06/12/23 11:39 06/12/23 11:39 Gen. is a pleasant cooperative female in no acute distress. Heart appears regular at this time. No respiratory distress. Abdomen is soft, obese and nontender. Bilateral lower extremity is warm and dry. Palpable radial pulses. Palpable femoral pulse on the left lower extremity, weakly palpable DP PT, on the right, no palpable pulses. Foot is cool. Motor intact, slightly diminished sensory. Results Small area of distal aortic nonocclusive disease. Right lower extremity with evidence of occlusion of the common, superficial femoral vessel with reconstitution at the popliteal - Labs 06/12/23 12:11 06/12/23 12:11 Abnormal Lab Results - Last 24 Hours (Table) 06/12/23 06/12/23 06/12/23 Range/Units 12:11 12:11 12:11 WBC 13.5 H (3.8-10.6) k/uL Hgb 16.4 H (11.4-16.0) gm/dL Hct 48.7 H (34.0-46.0) % MCV 111.2 H (80.0-100.0) fL MCH 37.5 H (25.0-35.0) pg RDW 17.3 H (11.5-15.5) % Neutrophils # 10.1 H (1.3-7.7) k/uL Macrocytosis Marked A INR 1.2 H (<1.2) Potassium 2.4 L* (3.5-5.1) mmol/L Carbon Dioxide 12 L (22-30) mmol/L Glucose 219 H (74-99) mg/dL Plasma Lactic Acid Manuel (0.7-2.0) mmol/L AST 63 H (14-36) U/L ALT 46 H (4-34) U/L Alkaline Phosphatase 134 H (38-126) U/L 06/12/23 Range/Units 12:11 WBC (3.8-10.6) k/uL Hgb (11.4-16.0) gm/dL Hct (34.0-46.0) % MCV (80.0-100.0) fL MCH (25.0-35.0) pg RDW (11.5-15.5) % Neutrophils # (1.3-7.7) k/uL Macrocytosis INR (<1.2) Potassium (3.5-5.1) mmol/L Carbon Dioxide (22-30) mmol/L Glucose (74-99) mg/dL Plasma Lactic Acid Manuel 9.8 H* (0.7-2.0) mmol/L AST (14-36) U/L ALT (4-34) U/L Alkaline Phosphatase (38-126) U/L Diabetes panel 06/12/23 Range/Units 12:11 Sodium 137 (137-145) mmol/L Potassium 2.4 L* (3.5-5.1) mmol/L Chloride 101 (98-107) mmol/L Carbon Dioxide 12 L (22-30) mmol/L BUN 8 (7-17) mg/dL Creatinine 0.86 (0.52-1.04) mg/dL Glucose 219 H (74-99) mg/dL Calcium 9.4 (8.4-10.2) mg/dL AST 63 H (14-36) U/L ALT 46 H (4-34) U/L Alkaline Phosphatase 134 H (38-126) U/L Total Protein 7.3 (6.3-8.2) g/dL Albumin 3.8 (3.5-5.0) g/dL Calcium panel 06/12/23 Range/Units 12:11 Calcium 9.4 (8.4-10.2) mg/dL Albumin 3.8 (3.5-5.0) g/dL Pituitary panel 06/12/23 Range/Units 12:11 Sodium 137 (137-145) mmol/L Potassium 2.4 L* (3.5-5.1) mmol/L Chloride 101 (98-107) mmol/L Carbon Dioxide 12 L (22-30) mmol/L BUN 8 (7-17) mg/dL Creatinine 0.86 (0.52-1.04) mg/dL Glucose 219 H (74-99) mg/dL Calcium 9.4 (8.4-10.2) mg/dL Adrenal panel 06/12/23 Range/Units 12:11 Sodium 137 (137-145) mmol/L Potassium 2.4 L* (3.5-5.1) mmol/L Chloride 101 (98-107) mmol/L Carbon Dioxide 12 L (22-30) mmol/L BUN 8 (7-17) mg/dL Creatinine 0.86 (0.52-1.04) mg/dL Glucose 219 H (74-99) mg/dL Calcium 9.4 (8.4-10.2) mg/dL Total Bilirubin 1.2 (0.2-1.3) mg/dL AST 63 H (14-36) U/L ALT 46 H (4-34) U/L Alkaline Phosphatase 134 H (38-126) U/L Total Protein 7.3 (6.3-8.2) g/dL Albumin 3.8 (3.5-5.0) g/dL Assessment and Plan Assessment: [place] Acute limb ischemia Alcoholism, last drink about 24 hours Hypokalemia Lactic acidosis likely secondary to #1 Plan: Lungs examined the patient, this time she has limb threatening ischemia to her right lower extremity due to thrombus. We'll plan to take her for angiogram with likely thrombolysis initiation. Discussed risks and benefits including but not limited to severe bleeding, infection, need for amputation, . She seemsTo understand this and willing to proceed.
[2023-06-12] MEDS ORDERED: MIDAZOLAM 2 MG/2 ML VIAL IVP ONE (15:58)
[2023-06-12] MEDS ORDERED: LIDOCAINE 1% INJ 10MG/ML (20 ML MDV) SQ ONE (16:00)
[2023-06-12] MEDS ORDERED: ALTEPLASE 2 MG VIAL (CATHFLO) IV STA (16:18)
[2023-06-12] MEDS: ALTEPLASE 10 MG in SODIUM CHLORIDE 0.9% 90 ML IA ONE (16:28)
[2023-06-12] MEDS ORDERED: HEPARIN SOD,PORK IN 0.45% NACL 25,000 UNIT in 0.45% NACL 1 250ML.BAG IV ONE (16:29)
[2023-06-12] MEDS ORDERED: IOPAMIDOL-370 100ML BTL INJ ONE (16:35)
[2023-06-12] MEDS ORDERED: HYDROmorphone 1 MG/ML 1 ML SYRINGE IVP ONE (16:53)
--- NOTE | 2023-06-12 17:02 | P.OP ---
Date of Procedure: 06/12/23 Description of Procedure: Preoperative diagnosis: Acute limb ischemia right lower extremity Postoperative diagnosis: Same Procedure: Ultrasound-guided left common femoral artery access #2 iliofemoral angiogram #3 selective right lower extremity angiogram third order to below-knee popliteal #4 initiation of TPA thrombolysis #5 sedation 26 minutes, personal monitoring certified RN administration with hemodynamic monitoring Surgeon: Rosie Higginbotham D.O. EBL: Less than 5 mL IV fluids: See records Urine output: See records Drains:None Complications:None immediately apparent Condition: Stable toICU Operative indication and findings: Patient is a 47-year-old female with a history of significant alcohol abuse and noncompliance certain medications but no other further significant medical history has been feeling sick for the past few months. She the past few hours prior to presentation had been having increased pain in her right lower extremity. On workup and evaluation she was found to have acute limb occlusion of the right lower extremity therefore TPAThrombolysis was offered. Risks and benefits were discussed. She seemingly understood and was willing to proceed. Procedure in detail: Patient was taken to the special suite and placed in supine position. Bilateral groins are prepped and draped in usual sterile fashion. Procedure timeout was performed, all parties are in agreement. Using ultrasound, the left common femoral artery is identified. The skin overlying was anesthetized 1% lidocaine plain. The artery appeared to be patentand pulsatile without significant calcific disease.Permanent image was stored. Using Seldinger technique, a micropuncture needle was used to access and a 5- German sheath was placed. Catheters and wires were utilized to access the right common iliac artery. A left iliofemoral angiogram had been performed. There was some evidence of local lucency in the level of the distal aorta however do not appear flow limiting to the left lower extremity. The catheter was placed and a right lower extremity angiogram was performed. There appeared to be abr upt occlusion of the common femoral artery at the level of the femoral head. There was no visualization of the profunda or superficial femoral artery attempts were made to pass wire which did appear to traverse in the standard location of the superficial femoral artery. At about the level of the popliteal artery, again the wire was advancing in a loop without any evidence of resistance. A quick cross catheter was placed over the top and an angiogram was performed at the level of the popliteal artery below knee. There appeared to be patent with three-vessel takeoff. The posterior tibial. Patent to the ankle. The anterior tibial was sluggish but at least patent to the mid calf. At this point the catheter was Used 2exchanged for aGlide advantage and using this a 6- German Rabi sheath was placed up and over with the distal in the external iliac artery. A 50 cm infusion TPA catheter was placed. 2 mg of TPA was instilled. The catheter was sutured in placeDressings were placed the patient was transferred to ICU in stable condition having tolerated the procedure well.
[2023-06-12 17:11] LABS: Glucose,Whole Blood 121 mg/dL (70-110)
[2023-06-12] MEDS ORDERED: POTASSIUM CHLORIDE ER 20 MEQ TAB.ER PO ONE (17:24)
[2023-06-12] MEDS: ONDANSETRON 4 MG/2 ML VIAL IVP PRN (17:40)
[2023-06-12] MEDS: MORPHINE SULFATE 4 MG/ML SYRINGE IV PRN ×3 (17:40→23:41)
[2023-06-12 18:01] LABS: Prothrombin Time 11.3 sec (10.0-12.5)
[2023-06-12 18:11] LABS: Anisocytosis Slight; Basophils % (A) 0 %; Eosinophils % (A) 0 %; HCT 42.5 % (34.0-46.0); HGB 14.4 gm/dL (11.4-16.0); Lymphocytes % (A) 10 %; MCH 38.4 pg (25.0-35.0); MCHC 33.8 g/dL (31.0-37.0); MCV 113.5 fL (80.0-100.0); Macrocytosis Marked; Mean Platelet Volume 7.4; Monocytes # (A) 0.2 k/uL (0-1.0); Monocytes % (A) 2 %; Neutrophils % (A) 87 %; Platelet Count 215 k/uL (150-450); RBC 3.75 m/uL (3.80-5.40); RDW 17.1 % (11.5-15.5); WBC 9.2 k/uL (3.8-10.6)
[2023-06-12] MEDS ORDERED: THIAMINE 100 MG/ML 2 ML VIAL IM STA (19:43)
[2023-06-12] MEDS ORDERED: LORazepam 2 MG/ML INJ IV PRN (19:43)
[2023-06-12] MEDS ORDERED: LORazepam 1 MG TAB PO PRN ×3 (19:43)
[2023-06-12 23:26] LABS: Amphetamine Screen,Urine Not Detected (NotDetected); Barbiturate Screen,Urine Not Detected (NotDetected); Benzodiazepines Screen,Urine Detected (NotDetected); Cocaine Screen,Urine Not Detected (NotDetected); Methadone Screen, Urine Not Detected (NotDetected); Opiate Screen,Urine Detected (NotDetected); Oxycodone Screen, Urine Not Detected (NotDetected); Phencyclidine Screen,Urine Not Detected (NotDetected); Tricyclic Antidepressant,Urine Not Detected (NotDetected); Urn Cannabinoid Scrn Detected (NotDetected)
[2023-06-12] MEDS: CALCIUM CARBONATE 500 MG CHEWABLE PO PRN (23:41)
[2023-06-13 01:05] LABS: African American GFR (CKD) >90 (>60 ml/min/1.73 sqM); Anion Gap 7 mmol/L; Blood Urea Nitrogen 8 mg/dL (7-17); Calcium 8.1 mg/dL (8.4-10.2); Carbon Dioxide 23 mmol/L (22-30); Chloride 105 mmol/L (98-107); Glucose 104 mg/dL (74-99); Non-African American GFR(CKD) >90 (>60 ml/min/1.73 sqM); Potassium 3.5 mmol/L (3.5-5.1); Sodium 135 mmol/L (137-145)
[2023-06-13 01:06] LABS: Anisocytosis Slight; HCT 40.6 % (34.0-46.0); HGB 13.5 gm/dL (11.4-16.0); MCH 37.6 pg (25.0-35.0); MCHC 33.1 g/dL (31.0-37.0); MCV 113.5 fL (80.0-100.0); Macrocytosis Marked; Mean Platelet Volume 7.5; Platelet Count 202 k/uL (150-450); RBC 3.58 m/uL (3.80-5.40); RDW 17.4 % (11.5-15.5); WBC 9.7 k/uL (3.8-10.6)
[2023-06-13 01:36] LABS: Anisocytosis (M) Present; Band Neutrophils % 1 %; Basophils # (M) 0.19 k/uL (0-0.2); Neutrophils % (M) 62 %; Nucleated Red Blood Cells 0 /100 WBC (0-0); Total Cells Counted 100
[2023-06-13] MEDS: LORazepam 0.5 MG TAB PO PRN ×2 (02:13→07:42)
[2023-06-13] MEDS: POTASSIUM CHLORIDE ER 20 MEQ TAB.ER PO SCH ×2 (02:13→02:56)
[2023-06-13] MEDS: MORPHINE SULFATE 2 MG/ML SYRINGE IV PRN ×4 (02:56→18:15)
[2023-06-13] MEDS ORDERED: ALTEPLASE 10 MG in SODIUM CHLORIDE 0.9% 90 ML IA ONE (04:47)
[2023-06-13 05:05] LABS: INR 1.2 (<1.2); Prothrombin Time 12.5 sec (10.0-12.5)
[2023-06-13] MEDS: ALTEPLASE 10 MG in SODIUM CHLORIDE 0.9% 90 ML IA ONE ×2 (05:25→14:18)
[2023-06-13] MEDS: MORPHINE SULFATE 4 MG/ML SYRINGE IV PRN ×4 (06:33→17:13)
[2023-06-13] MEDS: PANTOPRAZOLE 40 MG/10 ML VIAL IV SCH (07:42)
[2023-06-13] MEDS: THIAMINE 100 MG TAB PO SCH (07:42)
[2023-06-13 07:50] LABS: ALT 23 U/L (4-34); AST 35 U/L (14-36); African American GFR (CKD) >90 (>60 ml/min/1.73 sqM); Alkaline Phosphatase 94 U/L (38-126); Anion Gap 5 mmol/L; Blood Urea Nitrogen 7 mg/dL (7-17); Carbon Dioxide 27 mmol/L (22-30); Chloride 104 mmol/L (98-107); Glucose 83 mg/dL (74-99); Non-African American GFR(CKD) >90 (>60 ml/min/1.73 sqM); Potassium 3.5 mmol/L (3.5-5.1); Sodium 136 mmol/L (137-145); Total Bilirubin 0.6 mg/dL (0.2-1.3); Total Protein 6.2 g/dL (6.3-8.2)
[2023-06-13] MEDS: HEPARIN SOD,PORK IN 0.45% NACL 25,000 UNIT in 0.45% NACL 1 250ML.BAG IV SCH ×2 (09:17→14:18)
[2023-06-13 09:44] LABS: Anisocytosis Slight; HCT 41.6 % (34.0-46.0); HGB 13.4 gm/dL (11.4-16.0); Hypochromasia Slight; MCH 37.2 pg (25.0-35.0); MCHC 32.1 g/dL (31.0-37.0); MCV 115.9 fL (80.0-100.0); Macrocytosis Marked; Mean Platelet Volume 8.9; Platelet Count 181 k/uL (150-450); RBC 3.59 m/uL (3.80-5.40); RDW 17.6 % (11.5-15.5)
[2023-06-13] MEDS ORDERED: LIDOCAINE 1% INJ 10MG/ML (20 ML MDV) ONE (10:50)
[2023-06-13] MEDS ORDERED: IV FLUID CONTINUATION 200 ML IV ONE (11:00)
[2023-06-13] MEDS ORDERED: SODIUM CHLORIDE 0.9% 500 ML 500 ML IV ONE (11:05)
[2023-06-13 11:18] LABS: Band Neutrophils % 1 %; Monocytes # (M) 0.23 k/uL (0-1.0); Neutrophils % (M) 67 %; Nucleated Red Blood Cells 1 /100 WBC (0-0); Total Cells Counted 100
[2023-06-13 11:19] LABS: Lymphocytes # (M) 3.42 k/uL (1.0-4.8); WBC 11.4 k/uL (3.8-10.6)
[2023-06-13] MEDS: MIDAZOLAM 2 MG/2 ML VIAL IVP ONE ×2 (11:59→12:10)
[2023-06-13] MEDS ORDERED: fentaNYL (PF) 50 MCG/ML 2 ML AMP ONE (12:00)
[2023-06-13] MEDS: fentaNYL (PF) 50 MCG/1 ML VIAL IVP ONE ×2 (12:03→12:13)
--- NOTE | 2023-06-13 12:04 | P.CNPUL ---
History of Present Illness Consult date: 06/13/23 Chief complaint: ICU management, acute ischemic limb History of present illness: This is a 47-year-old female patient was taken to the vascular lab yesterday with an acute limb ischemia involving the right lower extremity. The patient had an angiogram of the iliofemoral artery and the patient underwent elective catheterization and initiated on TPA thrombolysis. On today's evaluation, the patient has improved wants and color the right foot. Pulses dorsalis pedis is obtained by Doppler signal. No pain right lower extremity. The patient is going to be taken to the vascular lab again. This patient has history of smoking, alcohol abuse and she had chronic pain in the right lower extremity/with mobility. She may have underlying medication. 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 Patient also has calcified plaques involving the abdominal aorta. she is currently doing well. she is hemodynamically stable. the patient had the [place] of 11.4, hemoglobin 13.4 and platelet count 181. inr is 1.2 with a p t of 12.5 and a fibrinogen level is up to 93. ptt was 88 earlier. sodium levels of 136. aspirin 3.57 with a creatinine of 0.6 and a serum bicarb level is at 27. urine drug screen is positive for thc and benzodiazepines. Review of Systems Constitutional: Reports as per HPI Eyes: denies as per HPI, denies blurred vision, denies bulging eye, denies decreased vision, denies diplopia, denies discharge, denies dry eye, denies irritation, denies itching, denies pain, denies photophobia, denies loss of peripheral vision, denies loss of vision, denies tunnel vision/blind spots Ears: deny: decreased hearing, ear discharge, earache, tinnitus Breasts: absent: as per HPI, change in shape, gynecomastia, masses, nipple discharge, pain, skin changes, swelling Cardiovascular: Reports claudication Respiratory: Reports as per HPI Gastrointestinal: Reports as per HPI Genitourinary: Reports as per HPI Menstruation: Reports as per HPI Musculoskeletal: Reports as per HPI Musculoskeletal: absent: ankle pain, ankle stiffness, ankle swelling, as per HPI, elbow pain, elbow stiffness, elbow swelling, foot pain, foot stiffness, foot swelling, hand pain, hand stiffness, hand swelling, hip pain, hip stiffness, hip swelling, knee pain, knee stiffness, knee swelling, shoulder pain, shoulder stiffness, shoulder swelling, wrist pain, wrist stiffness, wrist swelling Integumentary: Reports as per HPI Neurological: Reports as per HPI Psychiatric: Reports as per HPI Endocrine: Reports as per HPI Hematologic/Lymphatic: Reports as per HPI Allergic/Immunologic: Reports as per HPI Past Medical History Past Medical History: GERD/Reflux, GI Bleed Additional Past Medical History / Comment(s): PAT HX OF MULTIPLE HEAD TRAUMA, ULCERS, ANEMIA, + HEMOCCULT, FREQ BRONCHITIS AND SINUS AND EAR INFECTIONS, ALSO HAS HAD BLOOD IN STOOL, VERTIGO, Chronic back pain, Migraine, bipolar, anxiety, depression, History of Any Multi-Drug Resistant Organisms: None Reported Past Surgical History: Section, Orthopedic Surgery Additional Past Surgical History / Comment(s): C-SEC X 2. COLONOSCOPY/EGD. RT Carpal Tunnel Surgery Past Anesthesia/Blood Transfusion Reactions: No Reported Reaction Past Psychological History: Anxiety, Depression Additional Psychological History / Comment(s): PMDD (POST MENSTRUAL DYSPHORIC DISORDER) Smoking Status: Current every day smoker Past Alcohol Use History: None Reported, Daily, Heavy Additional Past Alcohol Use History / Comment(s): PAST ETOH ABUSE-LAST DRINK WAS APPROX 18 MONTHS AGO Past Drug Use History: None Reported Additional Drug Use History / Comment(s): USES MARIJUANA DAILY-INSTRUCTED TO REFRAIN FROM USE FOR AT LEAST 24 HOURS PRIOR TO PROCEDURE - Past Family History Mother Family Medical History: No Reported History Medications and Allergies Home Medications Medication Instructions Recorded Confirmed Type No Known Home Medications 06/12/23 06/12/23 History Allergies Allergy/AdvReac Type Severity Reaction Status Date / Time No Known Allergies Allergy Verified 06/12/23 15:08 Physical Exam Vitals: Vital Signs Temp Pulse Resp BP Pulse Ox 06/13/23 07:00 82 18 100/69 95 06/13/23 06:00 92 13 107/89 99 06/13/23 05:00 73 14 116/80 97 06/13/23 04:00 97.6 F 72 15 113/74 97 06/13/23 03:00 89 16 109/79 97 06/13/23 02:00 76 12 102/58 98 06/13/23 01:00 79 7 L 110/73 97 06/13/23 00:00 98.6 F 72 15 133/93 98 06/12/23 23:01 80 24 133/93 98 06/12/23 23:00 81 23 111/77 98 06/12/23 22:00 72 14 108/72 99 06/12/23 21:48 15 06/12/23 21:00 81 11 L 105/93 93 L 06/12/23 20:48 16 06/12/23 20:00 97.8 F 86 10 L 96/74 93 L 06/12/23 19:48 98.2 F 14 90 L 06/12/23 19:00 87 16 110/72 95 06/12/23 18:00 86 13 122/78 95 06/12/23 17:05 87 28 H 118/68 93 L 06/12/23 15:26 89 22 108/70 94 L 06/12/23 13:12 87 24 123/81 95 06/12/23 11:39 97.6 F 95 36 H 123/84 100 Intake and Output 06/12/23 06/13/23 06/13/23 22:59 06:59 14:59 Intake Total 960 2453.37 106.63 Output Total 195 505 Balance 765 1948.37 106.63 Intake: IV 960 1170 Sodium Chloride 0.9% 1, 910 1170 000 ml @ 130 mls/hr IV . Q7H42M [facility] Rx#:[id number] Intake, IV Titration 143.37 106.63 Amount Heparin Sod,Pork in 0.45% 143.37 106.63 NaCl 25,000 unit In 0.45 % NaCl 1 250ml.bag @ 18 UNITS/KG/HR 19.595 mls/hr IV .[id number] [facility] Rx#: [id number] Oral 1140 Output: Urine 195 505 Other: Voiding Method Indwelling Catheter Indwelling Catheter Indwelling Catheter Weight 108.862 kg 98.6 kg The patient appeared well nourished and normally developed. Vital signs as documented. Head exam is unremarkable. No scleral icterus or corneal arcus noted. Neck is without jugular venous distension, thyromegaly, or carotid bruits. Carotid upstrokes are brisk bilaterally. Lungs are clear to auscultation and percussion. Cardiac exam reveals the PMI to be normally sized and situated. Rhythm is regular. First and second heart sounds normal. No murmurs, rubs or gallops. Abdominal exam reveals normal bowel sounds, no masses, no organomegaly and no aortic enlargement. Extremities reveal Doppler signals only in the right foot involving the dorsalis pedis and posterior tibialis. The warmth and the color is improvement of the right foot. There is a palpable femoral pulse on the right and the left and diminished pulses also dorsalis pedis and posterior tibialis on the left. Motor function is adequate for now.Examination of the skin revealed no evidence of significant rashes, suspicious appearing nevi or ot her concerning lesions.Neurologically, the patient is awake and alert and the patient does not have any focal neurological deficit. Cranial nerves are essentially intact. Results - Laboratory Findings CBC and BMP: 06/13/23 04:12 06/13/23 06:07 PT/INR, D-dimer PT 12.5 sec (10.0-12.5) 06/13/23 04:12 INR 1.2 (<1.2) H 06/13/23 04:12 Abnormal lab findings: Abnormal Labs 06/12/23 06/12/23 06/12/23 12:11 12:11 12:11 WBC 13.5 H RBC Hgb 16.4 H Hct 48.7 H MCV 111.2 H MCH 37.5 H RDW 17.3 H Neutrophils # 10.1 H Macrocytosis Marked A INR 1.2 H APTT Sodium Potassium 2.4 L* Carbon Dioxide 12 L Glucose 219 H POC Glucose (mg/dL) Plasma Lactic Acid Manuel Calcium AST 63 H ALT 46 H Alkaline Phosphatase 134 H Total Protein Albumin Urine Opiates Screen U Benzodiazepines Scrn U Marijuana (THC) Screen 06/12/23 06/12/23 06/12/23 12:11 15:14 17:08 WBC RBC Hgb Hct MCV MCH RDW Neutrophils # Macrocytosis INR APTT 21.8 L Sodium Potassium Carbon Dioxide Glucose POC Glucose (mg/dL) 121 H Plasma Lactic Acid Manuel 9.8 H* Calcium AST ALT Alkaline Phosphatase Total Protein Albumin Urine Opiates Screen U Benzodiazepines Scrn U Marijuana (THC) Screen 06/12/23 06/12/23 06/13/23 17:40 22:43 00:16 WBC RBC 3.75 L 3.58 L Hgb Hct MCV 113.5 H 113.5 H MCH 38.4 H 37.6 H RDW 17.1 H 17.4 H Neutrophils # 8.0 H Macrocytosis Marked A Marked A INR APTT Sodium Potassium Carbon Dioxide Glucose POC Glucose (mg/dL) Plasma Lactic Acid Manuel Calcium AST ALT Alkaline Phosphatase Total Protein Albumin Urine Opiates Screen Detected H U Benzodiazepines Scrn Detected H U Marijuana (THC) Screen Detected H 06/13/23 06/13/23 06/13/23 00:16 00:16 04:12 WBC RBC Hgb Hct MCV MCH RDW Neutrophils # Macrocytosis INR 1.2 H APTT 88.0 H Sodium 135 L Potassium Carbon Dioxide Glucose 104 H POC Glucose (mg/dL) Plasma Lactic Acid Manuel Calcium 8.1 L AST ALT Alkaline Phosphatase Total Protein Albumin Urine Opiates Screen U Benzodiazepines Scrn U Marijuana (THC) Screen 06/13/23 06/13/23 06:07 07:04 WBC RBC Hgb Hct MCV MCH RDW Neutrophils # Macrocytosis INR APTT 104.2 H* Sodium 136 L Potassium Carbon Dioxide Glucose POC Glucose (mg/dL) Plasma Lactic Acid Manuel Calcium 8.0 L AST ALT Alkaline Phosphatase Total Protein 6.2 L Albumin 3.0 L Urine Opiates Screen U Benzodiazepines Scrn U Marijuana (THC) Screen Assessment and Plan Plan: Acute limb ischemia involving the right lower extremity, improving with intra- arterial TPA administration. Selective right lower extremity angiogram and initiation of TPA through a left common femoral artery access. The patient is postoperative day #1. The patient received TPA overnight. History of claudication Atherosclerosis involving the abdominal aorta Anxiety/depression Tobacco smoke and Marijuana smoker Alcohol drinking Plan Keep the patient ICU Continue IV heparin Continue alteplase No bleeding or complications point in time we'll monitor the hematologic profile We'll perform another angiogram by vascular surgery today There is improvement in the pulses in the right lower extremity Check a lipid profile Check hemoglobin A1c We'll continue to follow
[2023-06-13] MEDS ORDERED: LIDOCAINE 1% INJ 10MG/ML (20 ML MDV) SQ ONE (12:07)
[2023-06-13] MEDS ORDERED: IOPAMIDOL-250 100ML BTL INTRAARTER ONE ×2 (12:25→12:38)
[2023-06-13] MEDS ORDERED: ALTEPLASE 2 MG VIAL (CATHFLO) IV STA (12:35)
--- NOTE | 2023-06-13 12:56 | P.OP ---
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 Postoperative Diagnosis: Same plus complete resolution of the iliac and femoral thrombus with residual thrombotic occlusion of the tibial arteries right lower extremity. Procedure(s) Performed: 1: Angiogram via existing catheter. 2: Repositioning of infusion catheter. Anesthesia: local (With 100 g of fentanyl and 2 mg Versed.) Surgeon: Arvin Denton Estimated Blood Loss (ml): 5 Pathology: none sent Condition: stable Disposition: no change Indications for Procedure: Patient is a 47-year-old female who had presented with ischemic symptoms or right lower extremity. Antrum demonstrated embolic occlusion of the distal aortic/right common iliac artery as well as the right superficial femoral artery. Yesterday infusion catheter was placed and TPA thrombo-lysis was initiated. Patient is now brought back for repeat imaging and possible repositioning of the catheter. Since TPA infusion was started the patient indicates her leg feels much improved. Operative Findings: Complete resolution of the aortic/iliac thrombus with thrombotic tibial artery occlusive disease persisting. Description of Procedure: Patient was brought to the cardiac photo lab manager. The patient's left and right lower extremity sterilely prepped and draped in usual manner. Eventually 1% Xylocaine was utilized for local anesthesia tissues surrounding the left femoral puncture wound. Angiogram via existing catheter was performed. This demonstrated the aortal iliac as well as the femoral and popliteal segments to be free of any residual thrombus however thrombotic occlusive disease was identified within the tibial segments. The sheath was advanced as far distally as possible and the infusion catheter advanced through the sheath and over a wire. Injury gram demonstrated the anterior tibial artery to be patent however the tibial peroneal trunk was occluded with residual thrombus. Attempt at cannulating the origin of the tibial peroneal trunk was unsuccessful. As such the catheter was left within the distal popliteal artery with plans for continue tPA infusion with repeat imaging tomorrow June 14. Patient tolerated procedure well. Total fluoroscopy time: 7.0 minutes. Total moderate conscious sedation time: 28 minutes. Total contrast volume utilized: 30 ML's of Isovue.
--- NOTE | 2023-06-13 13:35 | P.HPIM ---
History of Present Illness H&P Date: 06/13/23 Chief Complaint: Leg pain * 47-year-old patient with past medical history significant for alcohol abuse, polysubstance use gastroesophageal reflux disease presents to the emergency department with complaint of severe discomfort and right lower extremity * Patient has been feeling ill for several weeks, she presents to ER few hour prior to presentation had increased pain in right leg. 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 Serum chemistry sodium 137 potassium 2.4 carbon dioxide 12 BUNs 8 creatinine 0.86 lactic acid on admission around 9 * Patient was taken to calibration laboratory technician and underwent ultrasound-guided iliofemoral angiogram selective right lower extremity angiogram and thrombolysis REVIEW OF SYSTEMS: Right leg pain CONSTITUTIONAL: No fever, no malaise, no fatigue. HEENT: No recent visual problems or hearing problems. Denied any sore throat. CARDIOVASCULAR: No chest pain, orthopnea, PND, no palpitations, no syncope. PULMONARY: No shortness of breath, no cough, no hemoptysis. GASTROINTESTINAL: No diarrhea, no nausea, no vomiting, no abdominal pain. NEUROLOGICAL: No headaches, no weakness, no numbness. HEMATOLOGICAL: Denies any bleeding or petechiae. GENITOURINARY: Denies any burning micturition, frequency, or urgency. MUSCULOSKELETAL/RHEUMATOLOGICAL: Denies any joint pain, swelling, or any muscle pain. ENDOCRINE: Denies any polyuria or polydipsia. PHYSICAL EXAMINATION: GENERAL: The patient is alert and oriented x3, HEENT: Pupils are round and equally reacting to light. EOMI. CARDIOVASCULAR: S1 and S2 present. No murmurs, rubs, or gallops. Right leg pain, diminished pulses right lower extremity PULMONARY: Chest is clear to auscultation, no wheezing or crackles. ABDOMEN: Soft, nontender, nondistended, normoactive bowel sounds. No palpable organomegaly. MUSCULOSKELETAL: No joint swelling or deformity. EXTREMITIES: No cyanosis, clubbing, or pedal edema. NEUROLOGICAL: Gross neurological examination did not reveal any focal deficits. SKIN: No rashes. Past Medical History Past Medical History: GERD/Reflux, GI Bleed Additional Past Medical History / Comment(s): PAT HX OF MULTIPLE HEAD TRAUMA, ULCERS, ANEMIA, + HEMOCCULT, FREQ BRONCHITIS AND SINUS AND EAR INFECTIONS, ALSO HAS HAD BLOOD IN STOOL, VERTIGO, Chronic back pain, Migraine, bipolar, anxiety, depression, History of Any Multi-Drug Resistant Organisms: None Reported Past Surgical History: Section, Orthopedic Surgery Additional Past Surgical History / Comment(s): C-SEC X 2. COLONOSCOPY/EGD. RT Carpal Tunnel Surgery Past Anesthesia/Blood Transfusion Reactions: No Reported Reaction Past Psychological History: Anxiety, Depression Additional Psychological History / Comment(s): PMDD (POST MENSTRUAL DYSPHORIC D ISORDER) Smoking Status: Current every day smoker Past Alcohol Use History: None Reported, Daily, Heavy Additional Past Alcohol Use History / Comment(s): PAST ETOH ABUSE-LAST DRINK WAS APPROX 18 MONTHS AGO Past Drug Use History: None Reported Additional Drug Use History / Comment(s): USES MARIJUANA DAILY-INSTRUCTED TO REFRAIN FROM USE FOR AT LEAST 24 HOURS PRIOR TO PROCEDURE - Past Family History Mother Family Medical History: No Reported History Medications and Allergies Home Medications Medication Instructions Recorded Confirmed Type No Known Home Medications 06/12/23 06/12/23 History Allergies Allergy/AdvReac Type Severity Reaction Status Date / Time No Known Allergies Allergy Verified 06/12/23 15:08 Physical Exam Vitals: Vital Signs Temp Pulse Resp BP Pulse Ox 06/13/23 07:00 82 18 100/69 95 06/13/23 06:00 92 13 107/89 99 06/13/23 05:00 73 14 116/80 97 06/13/23 04:00 97.6 F 72 15 113/74 97 06/13/23 03:00 89 16 109/79 97 06/13/23 02:00 76 12 102/58 98 06/13/23 01:00 79 7 L 110/73 97 06/13/23 00:00 98.6 F 72 15 133/93 98 06/12/23 23:01 80 24 133/93 98 06/12/23 23:00 81 23 111/77 98 06/12/23 22:00 72 14 108/72 99 06/12/23 21:48 15 06/12/23 21:00 81 11 L 105/93 93 L 06/12/23 20:48 16 06/12/23 20:00 97.8 F 86 10 L 96/74 93 L 06/12/23 19:48 98.2 F 14 90 L 06/12/23 19:00 87 16 110/72 95 06/12/23 18:00 86 13 122/78 95 06/12/23 17:05 87 28 H 118/68 93 L 06/12/23 15:26 89 22 108/70 94 L 06/12/23 13:12 87 24 123/81 95 06/12/23 11:39 97.6 F 95 36 H 123/84 100 Intake and Output 06/12/23 06/13/23 06/13/23 22:59 06:59 14:59 Intake Total 960 2453.37 Output Total 195 505 Balance 765 1948.37 Intake: IV 960 1170 Sodium Chloride 0.9% 1, 910 1170 000 ml @ 130 mls/hr IV . Q7H42M [facility] Rx#:[id number] Intake, IV Titration 143.37 Amount Heparin Sod,Pork in 0.45% 143.37 NaCl 25,000 unit In 0.45 % NaCl 1 250ml.bag @ 18 UNITS/KG/HR 19.595 mls/hr IV .[id number] [facility] Rx#: [id number] Oral 1140 Output: Urine 195 505 Other: Voiding Method Indwelling Catheter Indwelling Catheter Indwelling Catheter Weight 108.862 kg 98.6 kg Results CBC & Chem 7: 06/13/23 04:12 06/13/23 06:07 Labs: Abnormal Lab Results - Last 24 Hours (Table) 06/12/23 06/12/23 06/12/23 Range/Units 12:11 12:11 12:11 WBC 13.5 H (3.8-10.6) k/uL RBC (3.80-5.40) m/uL Hgb 16.4 H (11.4-16.0) gm/dL Hct 48.7 H (34.0-46.0) % MCV 111.2 H (80.0-100.0) fL MCH 37.5 H (25.0-35.0) pg RDW 17.3 H (11.5-15.5) % Neutrophils # 10.1 H (1.3-7.7) k/uL Macrocytosis Marked A INR 1.2 H (<1.2) APTT (22.0-30.0) sec Sodium (137-145) mmol/L Potassium 2.4 L* (3.5-5.1) mmol/L Carbon Dioxide 12 L (22-30) mmol/L Glucose 219 H (74-99) mg/dL POC Glucose (mg/dL) (70-110) mg/dL Plasma Lactic Acid Manuel (0.7-2.0) mmol/L Calcium (8.4-10.2) mg/dL AST 63 H (14-36) U/L ALT 46 H (4-34) U/L Alkaline Phosphatase 134 H (38-126) U/L Total Protein (6.3-8.2) g/dL Albumin (3.5-5.0) g/dL Urine Opiates Screen (NotDetected) U Benzodiazepines Scrn (NotDetected) U Marijuana (THC) Screen (NotDetected) 06/12/23 06/12/23 06/12/23 Range/Units 12:11 15:14 17:08 WBC (3.8-10.6) k/uL RBC (3.80-5.40) m/uL Hgb (11.4-16.0) gm/dL Hct (34.0-46.0) % MCV (80.0-100.0) fL MCH (25.0-35.0) pg RDW (11.5-15.5) % Neutrophils # (1.3-7.7) k/uL Macrocytosis INR (<1.2) APTT 21.8 L (22.0-30.0) sec Sodium (137-145) mmol/L Potassium (3.5-5.1) mmol/L Carbon Dioxide (22-30) mmol/L Glucose (74-99) mg/dL POC Glucose (mg/dL) 121 H (70-110) mg/dL Plasma Lactic Acid Manuel 9.8 H* (0.7-2.0) mmol/L Calcium (8.4-10.2) mg/dL AST (14-36) U/L ALT (4-34) U/L Alkaline Phosphatase (38-126) U/L Total Protein (6.3-8.2) g/dL Albumin (3.5-5.0) g/dL Urine Opiates Screen (NotDetected) U Benzodiazepines Scrn (NotDetected) U Marijuana (THC) Screen (NotDetected) 06/12/23 06/12/23 06/13/23 Range/Units 17:40 22:43 00:16 WBC (3.8-10.6) k/uL RBC 3.75 L 3.58 L (3.80-5.40) m/uL Hgb (11.4-16.0) gm/dL Hct (34.0-46.0) % MCV 113.5 H 113.5 H (80.0-100.0) fL MCH 38.4 H 37.6 H (25.0-35.0) pg RDW 17.1 H 17.4 H (11.5-15.5) % Neutrophils # 8.0 H (1.3-7.7) k/uL Macrocytosis Marked A Marked A INR (<1.2) APTT (22.0-30.0) sec Sodium (137-145) mmol/L Potassium (3.5-5.1) mmol/L Carbon Dioxide (22-30) mmol/L Glucose (74-99) mg/dL POC Glucose (mg/dL) (70-110) mg/dL Plasma Lactic Acid Manuel (0.7-2.0) mmol/L Calcium (8.4-10.2) mg/dL AST (14-36) U/L ALT (4-34) U/L Alkaline Phosphatase (38-126) U/L Total Protein (6.3-8.2) g/dL Albumin (3.5-5.0) g/dL Urine Opiates Screen Detected H (NotDetected) U Benzodiazepines Scrn Detected H (NotDetected) U Marijuana (THC) Screen Detected H (NotDetected) 06/13/23 06/13/23 06/13/23 Range/Units 00:16 00:16 04:12 WBC (3.8-10.6) k/uL RBC (3.80-5.40) m/uL Hgb (11.4-16.0) gm/dL Hct (34.0-46.0) % MCV (80.0-100.0) fL MCH (25.0-35.0) pg RDW (11.5-15.5) % Neutrophils # (1.3-7.7) k/uL Macrocytosis INR 1.2 H (<1.2) APTT 88.0 H (22.0-30.0) sec Sodium 135 L (137-145) mmol/L Potassium (3.5-5.1) mmol/L Carbon Dioxide (22-30) mmol/L Glucose 104 H (74-99) mg/dL POC Glucose (mg/dL) (70-110) mg/dL Plasma Lactic Acid Manuel (0.7-2.0) mmol/L Calcium 8.1 L (8.4-10.2) mg/dL AST (14-36) U/L ALT (4-34) U/L Alkaline Phosphatase (38-126) U/L Total Protein (6.3-8.2) g/dL Albumin (3.5-5.0) g/dL Urine Opiates Screen (NotDetected) U Benzodiazepines Scrn (NotDetected) U Marijuana (THC) Screen (NotDetected) 06/13/23 Range/Units 06:07 WBC (3.8-10.6) k/uL RBC (3.80-5.40) m/uL Hgb (11.4-16.0) gm/dL Hct (34.0-46.0) % MCV (80.0-100.0) fL MCH (25.0-35.0) pg RDW (11.5-15.5) % Neutrophils # (1.3-7.7) k/uL Macrocytosis INR (<1.2) APTT (22.0-30.0) sec Sodium 136 L (137-145) mmol/L Potassium (3.5-5.1) mmol/L Carbon Dioxide (22-30) mmol/L Glucose (74-99) mg/dL POC Glucose (mg/dL) (70-110) mg/dL Plasma Lactic Acid Manuel (0.7-2.0) mmol/L Calcium 8.0 L (8.4-10.2) mg/dL AST (14-36) U/L ALT (4-34) U/L Alkaline Phosphatase (38-126) U/L Total Protein 6.2 L (6.3-8.2) g/dL Albumin 3.0 L (3.5-5.0) g/dL Urine Opiates Screen (NotDetected) U Benzodiazepines Scrn (NotDetected) U Marijuana (THC) Screen (NotDetected) Thrombosis Risk Factor Assmnt - Choose All That Apply Any of the Below Risk Factors Present?: Yes Each Factor Represents 1 point: Age 41-60 years Thrombosis Risk Factor Assessment Total Risk Factor Score: 1 Thrombosis Risk Factor Assessment Level: Low Risk Assessment and Plan Assessment: Assessment and plan * Acute limb ischemia right lower extremity * Polysubstance use/alcohol use disorder * Lactic acidosis secondary to ischemia * Hypokalemia * Metabolic acidosis * Consultation obtained from vascular surgery/critical care medicine * Continue with neurovascular checks right lower extremity/patient underwent TPA and transferred to ICU * Continue patient on fluid resuscitation, anticoagulation with IV heparin * Heparin as this medication, continue to monitor heparin levels CBC high risk of bleeding * In regards to lactic acidosis, follow-up lactate levels ordered continue with resuscitation * In regards to electrolyte abnormality follow-up basic metabolic panel ordered * In regards to alcohol use continue patient on alcohol withdrawal protocol * CODE STATUS is full code Time with Patient: Greater than 30
[2023-06-13 14:33] LABS: Partial Thromboplastin Time 29.1 sec (22.0-30.0)
[2023-06-13 14:34] LABS: Anisocytosis Slight; HGB 13.1 gm/dL (11.4-16.0); Hypochromasia Slight; MCHC 32.9 g/dL (31.0-37.0); MCV 115.5 fL (80.0-100.0); Macrocytosis Marked; Mean Platelet Volume 7.4; Platelet Count 159 k/uL (150-450); RBC 3.46 m/uL (3.80-5.40); RDW 17.2 % (11.5-15.5); WBC 8.1 k/uL (3.8-10.6)
[2023-06-13 15:23] LABS: Band Neutrophils % 1 %; Eosinophils # (M) 0.08 k/uL (0-0.7); Lymphocytes # (M) 1.86 k/uL (1.0-4.8); Monocytes # (M) 0.08 k/uL (0-1.0); Neutrophils % (M) 74 %; Nucleated Red Blood Cells 0 /100 WBC (0-0); Total Cells Counted 100
[2023-06-13] MEDS: LACTATED RINGERS 1,000 ML IV SCH (16:20)
[2023-06-13] MEDS: LORazepam 1 MG TAB PO PRN (17:39)
[2023-06-13] MEDS: HYDROcodone/APAP 5-325MG 1 EACH TAB PO PRN (18:44)
[2023-06-13] MEDS: HYDROmorphone 1 MG/ML 1 ML SYRINGE IVP PRN (19:47)
[2023-06-14] MEDS: ALTEPLASE 10 MG in SODIUM CHLORIDE 0.9% 90 ML IA ONE ×2 (00:36→09:07)
[2023-06-14] MEDS: HYDROcodone/APAP 5-325MG 1 EACH TAB PO PRN ×3 (00:37→20:25)
[2023-06-14] MEDS: LORazepam 1 MG TAB PO PRN ×4 (05:17→21:09)
[2023-06-14] MEDS: MORPHINE SULFATE 4 MG/ML SYRINGE IV PRN ×4 (05:17→21:09)
[2023-06-14] MEDS: LACTATED RINGERS 1,000 ML IV SCH ×2 (07:13→20:27)
[2023-06-14 07:20] LABS: African American GFR (CKD) >90 (>60 ml/min/1.73 sqM); Anion Gap 8 mmol/L; Blood Urea Nitrogen 3 mg/dL (7-17); Calcium 8.1 mg/dL (8.4-10.2); Carbon Dioxide 23 mmol/L (22-30); Chloride 105 mmol/L (98-107); Glucose 87 mg/dL (74-99); Non-African American GFR(CKD) >90 (>60 ml/min/1.73 sqM); Sodium 136 mmol/L (137-145)
[2023-06-14 07:25] LABS: Anisocytosis Slight; HGB 12.6 gm/dL (11.4-16.0); Hypochromasia Slight; MCH 38.1 pg (25.0-35.0); MCHC 33.1 g/dL (31.0-37.0); MCV 115.3 fL (80.0-100.0); Macrocytosis Marked; Platelet Count 117 k/uL (150-450); RBC 3.29 m/uL (3.80-5.40); RDW 17.8 % (11.5-15.5); WBC 6.9 k/uL (3.8-10.6)
[2023-06-14 07:31] LABS: Magnesium 1.3 mg/dL (1.6-2.3); Potassium 3.8 mmol/L (3.5-5.1)
[2023-06-14 07:32] LABS: Phosphorus 3.5 mg/dL (2.5-4.5)
[2023-06-14] MEDS: HYDROmorphone 1 MG/ML 1 ML SYRINGE IVP PRN ×3 (08:12→18:47)
[2023-06-14] MEDS: PANTOPRAZOLE 40 MG/10 ML VIAL IV SCH (08:16)
[2023-06-14] MEDS: THIAMINE 100 MG TAB PO SCH (08:19)
[2023-06-14] MEDS ORDERED: Magnesium Replacement Protocol 1 EACH MISC MISCELLANE PRN (08:22)
[2023-06-14] MEDS: MAGNESIUM SULFATE-D5W PMX 1 GM in DEXTROSE/WATER 1 100ML.BAG IVPB SCH ×4 (09:08→11:32)
--- NOTE | 2023-06-14 09:39 | P.PN ---
Subjective Progress Note Date: 06/14/23 Principal diagnosis: Critical limb ischemia Patient seen and examined in the ICU. Yesterday she went for angiogram and recheck on thromboliasis. Catheter was repositioned and TPA continues. She complains of right lower extremity pain says it's about the same as when she came in. Nursing reports that she has been anywhere between 11 and 8 on the CIWA scale and treated. WBC 6.9 hemoglobin 12.6 platelet count 117,000 fibrinogen 330 patient's magnesium was low at 1.3 this morning. TPA catheter in place and left groin dressing noted to have some of blood. Patient states she was moving some in the bed last night. Objective - Vital Signs Vital signs: Vital Signs Temp 97.8 F 06/14/23 04:00 Pulse 77 06/14/23 08:00 Resp 15 06/14/23 08:00 BP 124/77 06/14/23 08:00 Pulse Ox 97 06/14/23 08:00 FiO2 Intake & Output 06/13/23 06/14/23 06/14/23 18:59 06:59 18:59 Intake Total 2055.463 1570 1075 Output Total 1200 1255 100 Balance 855.463 315 975 Weight 99.3 kg Intake: IV 1360 900 75 Lactated Ringers 1,000 ml 300 900 75 @ 75 mls/hr IV .[id number] [facility] Rx#:[id number] Sodium Chloride 0.9% 1, 910 000 ml @ 130 mls/hr IV . Q7H42M [facility] Rx#:[id number] Intake, IV Titration 195.463 100 Amount Alteplase 10 mg In Sodium 88.833 100 Chloride 0.9% 90 ml @ 1 MG/HR 10 mls/hr IA .Q10H [facility] Rx#:[id number] Heparin Sod,Pork in 0.45% 106.63 NaCl 25,000 unit In 0.45 % NaCl 1 250ml.bag @ 18 UNITS/KG/HR 19.595 mls/hr IV .[id number] [facility] Rx#: [id number] Oral 737 [id number] Output: Urine 1200 1255 100 Other: Voiding Method Indwelling Catheter Indwelling Catheter - Exam General appearance: The patient is alert, oriented, appears in no acute distress. HET: Head is normocephalic and atraumatic. Pupils are equal and reactive. Neck: Supple. Heart: Regular. Lungs: Equal expansion, normal respiratory effort. Abdomen: Soft, nontender, nondistended. Extremities: Right lower extremity warm to the touch, DP and PT Doppler signal present. Left groin with TPA catheter in place dressing intact with small amount of bright red blood. Neurological: No focal deficits. Strength and sensation are grossly intact. - Labs CBC & Chem 7: 06/14/23 06:40 06/14/23 06:40 Labs: Abnormal Lab Results - Last 24 Hours (Table) 06/13/23 06/13/23 06/14/23 Range/Units 04:12 13:56 06:40 WBC 11.4 H (3.8-10.6) k/uL RBC 3.59 L 3.46 L (3.80-5.40) m/uL MCV 115.9 H 115.5 H (80.0-100.0) fL MCH 37.2 H 38.0 H (25.0-35.0) pg RDW 17.6 H 17.2 H (11.5-15.5) % Plt Count (150-450) k/uL Nucleated RBCs 1 H (0-0) /100 WBC Macrocytosis Marked A Marked A Sodium 136 L (137-145) mmol/L BUN 3 L (7-17) mg/dL Calcium 8.1 L (8.4-10.2) mg/dL Magnesium 1.3 L (1.6-2.3) mg/dL 06/14/23 Range/Units 06:40 WBC (3.8-10.6) k/uL RBC 3.29 L (3.80-5.40) m/uL MCV 115.3 H (80.0-100.0) fL MCH 38.1 H (25.0-35.0) pg RDW 17.8 H (11.5-15.5) % Plt Count 117 L (150-450) k/uL Nucleated RBCs (0-0) /100 WBC Macrocytosis Marked A Sodium (137-145) mmol/L BUN (7-17) mg/dL Calcium (8.4-10.2) mg/dL Magnesium (1.6-2.3) mg/dL Assessment and Plan Assessment: 1. 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 [place] 2b Acute limb ischemia 3. Alcoholism, alcohol withdrawal 4. Hypokalemia 5. Hypomagnesemia 6. Lactic acidosis likely secondary to #1, resolved Plan: 1. Continue TPA, patient scheduled to go for angiogram and recheck today 2. Keep nothing by mouth 3. Replace magnesium per protocol 4. Monitor for withdrawal symptoms, CIWA protocol 5. Recommend tobacco and alcohol abstinence 6. Further recommendations forthcoming based on clinical course Thank you for this consultation, we will continue to follow. The impression and plan of care has been dictated as directed. I performed a history and examination of this patient, discussed the same with the dictator. I agree with the dictator's note ,documented as a scribe. Any additional findings or plans will be noted.
[2023-06-14] MEDS ORDERED: POTASSIUM CHLORIDE ER 20 MEQ TAB.ER PO SCH (10:00)
[2023-06-14] MEDS: HEPARIN SOD,PORK IN 0.45% NACL 25,000 UNIT in 0.45% NACL 1 250ML.BAG IV SCH (10:05)
[2023-06-14] MEDS: ONDANSETRON 4 MG/2 ML VIAL IVP PRN (10:13)
[2023-06-14] MEDS: CALCIUM CARBONATE 500 MG CHEWABLE PO PRN (10:15)
--- NOTE | 2023-06-14 12:08 | P.PN ---
Subjective Progress Note Date: 06/14/23 * 47-year-old patient with past medical history significant for alcohol abuse, polysubstance use gastroesophageal reflux disease presents to the emergency department with complaint of severe discomfort and right lower extremity * Patient has been feeling ill for several weeks, she presents to ER few hour pr ior to presentation had increased pain in right leg. On evaluation in ER right lower extremity was noted to be cold * Further workup included a stat CT angiography lower extremity which showed arterial occlusion of the right LAP HAND TOOL and SFA loss spanning 6 cm>> patient started on IV heparin, vascular surgery was consulted * Blood work obtained in ER included CBC which were WBC of 9.2 hemoglobin 14.3 platelet count of 215. Serum chemistry sodium 137 potassium 2.4 carbon dioxide 12 BUNs 8 creatinine 0.86 lactic acid on admission around 9 * Patient was taken to pathology laboratory aide and underwent ultrasound-guided iliofemoral angiogram selective right lower extremity angiogram and thrombolysis * 06/14: Patient seen and evaluated bedside, patient monitored in ICU, magnesium replaced, continue to monitor on Cipro protocol, plan for TPA scheduled angiogram for today, vascular surgery team following, continue to monitor H&H patient received TPA for right lower extremity ischemia REVIEW OF SYSTEMS: Right leg pain improved CONSTITUTIONAL: No fever, no malaise, no fatigue. HEENT: No recent visual problems or hearing problems. Denied any sore throat. CARDIOVASCULAR: No chest pain, orthopnea, PND, no palpitations, no syncope. PULMONARY: No shortness of breath, no cough, no hemoptysis. GASTROINTESTINAL: No diarrhea, no nausea, no vomiting, no abdominal pain. NEUROLOGICAL: No headaches, no weakness, no numbness. HEMATOLOGICAL: Denies any bleeding or petechiae. GENITOURINARY: Denies any burning micturition, frequency, or urgency. MUSCULOSKELETAL/RHEUMATOLOGICAL: Denies any joint pain, swelling, or any muscle pain. ENDOCRINE: Denies any polyuria or polydipsia. PHYSICAL EXAMINATION: GENERAL: The patient is alert and oriented x3, HEENT: Pupils are round and equally reacting to light. EOMI. CARDIOVASCULAR: S1 and S2 present. No murmurs, rubs, or gallops. Right leg pain, diminished pulses right lower extremity, dorsalis pedis and posterior tibial palpable PULMONARY: Chest is clear to auscultation, no wheezing or crackles. ABDOMEN: Soft, nontender, nondistended, normoactive bowel sounds. No palpable organomegaly. MUSCULOSKELETAL: No joint swelling or deformity. EXTREMITIES: No cyanosis, clubbing, or pedal edema. NEUROLOGICAL: Gross neurological examination did not reveal any focal deficits. SKIN: No rashes. Objective - Vital Signs Vital signs: Vital Signs Temp 97.7 F 06/14/23 12:00 Pulse 77 06/14/23 12:00 Resp 16 06/14/23 12:00 BP 117/85 06/14/23 12:00 Pulse Ox 96 06/14/23 12:00 FiO2 Intake & Output 06/13/23 06/14/23 06/14/23 18:59 06:59 18:59 Intake Total 2055.463 1570 1534.084 Output Total 1200 1255 270 Balance 855.510 995 9980.084 Weight 99.3 kg 99.3 kg Intake: IV 1360 900 150 Lactated Ringers 1,000 ml 300 900 150 @ 75 mls/hr IV .[id number] [facility] Rx#:[id number] Sodium Chloride 0.9% 1, 910 000 ml @ 130 mls/hr IV . Q7H42M [facility] Rx#:[id number] Intake, IV Titration 195.463 100 384.084 Amount Alteplase 10 mg In Sodium 88.833 100 85.167 Chloride 0.9% 90 ml @ 1 MG/HR 10 mls/hr IA .Q10H [facility] Rx#:[id number] Heparin Sod,Pork in 0.45% 106.63 NaCl 25,000 unit In 0.45 % NaCl 1 250ml.bag @ 18 UNITS/KG/HR 19.595 mls/hr IV .[id number] [facility] Rx#: [id number] Heparin Sod,Pork in 0.45% 98.917 NaCl 25,000 unit In 0.45 % NaCl 1 250ml.bag @ 5 mls/hr IV .Q24H [facility] Rx#: [id number] Magnesium Sulfate-D5w Pmx 200 1 gm In Dextrose/Water 1 100ml.bag @ 100 mls/hr IVPB Q1H [facility] Rx#: [id number] Oral [id number] [id number] Output: Urine 1200 1255 270 Other: Voiding Method Indwelling Catheter Indwelling Catheter - Labs CBC & Chem 7: 06/14/23 06:40 06/14/23 06:40 Labs: Abnormal Lab Results - Last 24 Hours (Table) 06/13/23 06/14/23 06/14/23 Range/Units 13:56 06:40 06:40 RBC 3.46 L 3.29 L (3.80-5.40) m/uL MCV 115.5 H 115.3 H (80.0-100.0) fL MCH 38.0 H 38.1 H (25.0-35.0) pg RDW 17.2 H 17.8 H (11.5-15.5) % Plt Count 117 L (150-450) k/uL Macrocytosis Marked A Marked A Sodium 136 L (137-145) mmol/L BUN 3 L (7-17) mg/dL Calcium 8.1 L (8.4-10.2) mg/dL Magnesium 1.3 L (1.6-2.3) mg/dL Assessment and Plan Assessment: Assessment and plan * Acute limb ischemia right lower extremity involving right iliac and femoral artery segments status post TPA * Polysubstance use/alcohol use disorder * Lactic acidosis secondary to ischemia * Hypokalemia * Metabolic acidosis * Consultation obtained from vascular surgery/critical care medicine * Continue with neurovascular checks right lower extremity/patient underwent TPA and transferred to ICU * Continue patient on fluid resuscitation, anticoagulation with IV heparin * Heparin as this medication, continue to monitor heparin levels CBC high risk of bleeding * In regards to lactic acidosis, follow-up lactate levels ordered continue with resuscitation * In regards to electrolyte abnormality follow-up basic metabolic panel ordered * In regards to alcohol use continue patient on alcohol withdrawal protocol * CODE STATUS is full code Time with Patient: Greater than 30
--- NOTE | 2023-06-14 13:44 | P.PN ---
Subjective Progress Note Date: 06/14/23 Principal diagnosis: Acute right lower extremity ischemia This is a 47-year-old female patient was taken to the vascular lab yesterday with an acute limb ischemia involving the right lower extremity. The patient had an angiogram of the iliofemoral artery and the patient underwent elective catheterization and initiated on TPA thrombolysis. On today's evaluation, the patient has improved wants and color the right foot. Pulses dorsalis pedis is obtained by Doppler signal. No pain right lower extremity. The patient is going to be taken to the vascular lab again. This patient has history of smoking, alcohol abuse and she had chronic pain in the right lower extremity/wi th mobility. She may have underlying medication. The CT of the lower extremity showed arterial occlusion of the junction of the right BILLING REP and SFA has this was seen at the PFA and there is mild diffuse caliber narrowing of the remainder of the SFA but more focused severe stenosis level of the adductor hiatus. Patient also has calcified plaques involving the abdominal aorta. she is currently doi ng well. she is hemodynamically stable. the patient had the [place] of 11.4, hemoglobin 13.4 and platelet count 181. inr is 1.2 with a pt of 12.5 and a fibrinogen level is up to 93. ptt was 88 earlier. sodium levels of 136. aspirin 3.57 with a creatinine of 0.6 and a serum bicarb level is at 27. urine drug screen is positive for thc and benzodiazepines. Reevaluated today on 06/14/2023, patient remains in the ICU, still receiving intra-arterial TPA, this is being addressed by vascular surgery. Clinically however the patient is doing great, and she has excellent pulses in both lower extremities including dorsalis pedis pulse and posterior tibial pulses. No evidence of ischemic changes in the feet bilaterally. Patient is hemodynamically stable. CBC is basically unremarkable electrolytes are normal renal profile is normal. Surgery is planning angiogram and recheck today to hernandez on the TPA. Patient presented with a embolic occlusion of right ear neck and femoral arterial segments and she seems to be doing well since TPA was started. Objective - Vital Signs Vital signs: Vital Signs Temp 97.7 F 06/14/23 12:00 Pulse 77 06/14/23 12:00 Resp 16 06/14/23 12:00 BP 117/85 06/14/23 12:00 Pulse Ox 96 06/14/23 12:00 FiO2 Intake & Output 06/13/23 06/14/23 06/14/23 18:59 06:59 18:59 Intake Total 2055.463 1570 1709.084 Output Total 1200 1255 420 Balance 855.332 351 7441.084 Weight 99.3 kg 99.3 kg Intake: IV 1360 900 225 Lactated Ringers 1,000 ml 300 900 225 @ 75 mls/hr IV .[id number] [facility] Rx#:[id number] Sodium Chloride 0.9% 1, 910 000 ml @ 130 mls/hr IV . Q7H42M [facility] Rx#:[id number] Intake, IV Titration 195.463 100 484.084 Amount Alteplase 10 mg In Sodium 88.833 100 85.167 Chloride 0.9% 90 ml @ 1 MG/HR 10 mls/hr IA .Q10H [facility] Rx#:[id number] Heparin Sod,Pork in 0.45% 106.63 NaCl 25,000 unit In 0.45 % NaCl 1 250ml.bag @ 18 UNITS/KG/HR 19.595 mls/hr IV .[id number] [facility] Rx#: [id number] Heparin Sod,Pork in 0.45% 98.917 NaCl 25,000 unit In 0.45 % NaCl 1 250ml.bag @ 5 mls/hr IV .Q24H [facility] Rx#: [id number] Magnesium Sulfate-D5w Pmx 300 1 gm In Dextrose/Water 1 100ml.bag @ 100 mls/hr IVPB Q1H [facility] Rx#: [id number] Oral 542 [id number] 1098 Output: Urine 1200 1255 420 Other: Voiding Method Indwelling Catheter Indwelling Catheter - Exam Physical Exam: Revealed 47-year-old female in no distress on 2 L nasal cannula Head: Atraumatic, normocephalic. HEENT:[Neck is supple.] [No neck masses.] [No thyromegaly.] [No JVD.] Chest: [Clear throughout, no crackles, no rhonchi, no wheezes.] Cardiac Exam: [Normal S1 and S2, no S3 gallop, no murmur.] Abdomen: [Soft, nontender, no megaly, no rebound, no guarding, normal bowel sounds.] Extremities: [No clubbing, no edema, no cyanosis.] Good distal pulses bilat erally Neurological Exam: [No focal neurologic deficit.] Alert oriented 3 Psychiatric: Normal mood, affect and normal mental status examination Skin: No rashes - Labs CBC & Chem 7: 06/14/23 06:40 06/14/23 06:40 Labs: Abnormal Lab Results - Last 24 Hours (Table) 06/13/23 06/14/23 06/14/23 Range/Units 13:56 06:40 06:40 RBC 3.46 L 3.29 L (3.80-5.40) m/uL MCV 115.5 H 115.3 H (80.0-100.0) fL MCH 38.0 H 38.1 H (25.0-35.0) pg RDW 17.2 H 17.8 H (11.5-15.5) % Plt Count 117 L (150-450) k/uL Macrocytosis Marked A Marked A Sodium 136 L (137-145) mmol/L BUN 3 L (7-17) mg/dL Calcium 8.1 L (8.4-10.2) mg/dL Magnesium 1.3 L (1.6-2.3) mg/dL Assessment and Plan Assessment: Impression: Acute embolic occlusion of right iliac and femoral arterial segments, status post intra-arterial TPA, status post selective right lower extremity angiogram and initiation of TPA through left common femoral arterial access. Posto perative day #2 History of alcoholism Tobacco dependence syndrome generalized anxiety disorder History of claudications and peripheral vessel occlusive disease Recommendation: Continue to monitor in the ICU Vascular surgery is pending repeat angiogram in the meantime continue TPA We will continue to follow. Continue incentive spirometry Watch for any potential alcohol withdrawal. Time with Patient: Less than 30
[2023-06-14] MEDS ORDERED: MIDAZOLAM 2 MG/2 ML VIAL IVP ONE (15:11)
[2023-06-14] MEDS ORDERED: fentaNYL (PF) 50 MCG/1 ML VIAL IVP ONE ×2 (15:11)
[2023-06-14] MEDS ORDERED: IV FLUID CONTINUATION 1,000 ML IV ONE (15:19)
[2023-06-14] MEDS ORDERED: IOPAMIDOL-250 100ML BTL INTRAARTER ONE (15:47)
--- NOTE | 2023-06-14 15:54 | P.OP ---
Date of Procedure: 06/14/23 Preoperative Diagnosis: Embolic occlusion right lower extremity currently undergoing TPA thrombolysis Postoperative Diagnosis: Same Procedure(s) Performed: Right lower extremity selective angiogram via existing catheter Aortogram Conscious sedation x 30 minutes Surgeon: Getachew Clayton Estimated Blood Loss (ml): 5 Pathology: none sent Condition: stable Disposition: ICU Indications for Procedure: 47 year old female who has been undergoing TPA of the right leg presents for recheck angiogram Operative Findings: Resolution of thrombus with 2 vessel runoff to the ankle. Description of Procedure: After written and informed consent was obtained the patient all risks benefits and competitions were described patient is brought to the Director Of Labor Relations and laid supine position. The area of the existing catheter was prepped and draped in usual sterile fashion. Utilizing the existing catheter and selective angiogram was then obtained down the right lower extremity demonstrating complete resolution of the thrombus with good brisk flow to both the DP and PT. Catheter was then removed and the sheath was withdrawn into the aorta and aortogram was obtained demonstrating no evidence of thrombus with brisk flow down bilateral iliofemoral segments. The 6-Gib[place] long sheath was then replaced with a short 6-Gib[place] sheath over a guidewire and utilizing a Vascade closure device the left femoral artery was closed. The patient tolerated procedure well and pressure was held for hemostasis. Patient had palpable DP and PT pulses in the right lower extremity at the conclusion of the procedure and was sent back to the ICU for recovery.
[2023-06-14] MEDS ORDERED: HEPARIN SODIUM 1,000 UN/ML (10ML VL) IV PRN (17:08)
[2023-06-14] MEDS ORDERED: HEPARIN SOD,PORK IN 0.45% NACL 25,000 UNIT in 0.45% NACL 1 250ML.BAG IV SCH (18:45)
[2023-06-14 19:27] LABS: Partial Thromboplastin Time 22.4 sec (22.0-30.0); Prothrombin Time 10.9 sec (10.0-12.5)
[2023-06-15] MEDS: traMADol 50 MG TAB PO PRN (00:21)
[2023-06-15] MEDS: ACETAMINOPHEN TAB 325 MG TAB PO PRN ×2 (01:49→14:00)
[2023-06-15] MEDS: HYDROmorphone 1 MG/ML 1 ML SYRINGE IVP PRN (01:49)
[2023-06-15] MEDS: LORazepam 1 MG TAB PO PRN ×2 (01:50→17:14)
[2023-06-15] MEDS: LACTATED RINGERS 1,000 ML IV SCH ×2 (03:04→18:34)
[2023-06-15 04:25] LABS: Anisocytosis Slight; Basophils % (A) 0 %; Eosinophils # (A) 0.3 k/uL (0-0.7); Eosinophils % (A) 4 %; HCT 36.1 % (34.0-46.0); HGB 12.4 gm/dL (11.4-16.0); Lymphocytes # (A) 1.5 k/uL (1.0-4.8); Lymphocytes % (A) 21 %; MCH 39.2 pg (25.0-35.0); MCHC 34.4 g/dL (31.0-37.0); MCV 113.7 fL (80.0-100.0); Macrocytosis Marked; Mean Platelet Volume 7.3; Monocytes # (A) 0.2 k/uL (0-1.0); Monocytes % (A) 3 %; Neutrophils # (A) 5.2 k/uL (1.3-7.7); Neutrophils % (A) 71 %; Platelet Count 125 k/uL (150-450); RBC 3.18 m/uL (3.80-5.40); RDW 17.3 % (11.5-15.5); WBC 7.4 k/uL (3.8-10.6)
[2023-06-15] MEDS: ONDANSETRON 4 MG/2 ML VIAL IVP PRN (04:39)
[2023-06-15 04:51] LABS: African American GFR (CKD) >90 (>60 ml/min/1.73 sqM); Anion Gap 10 mmol/L; Blood Urea Nitrogen 3 mg/dL (7-17); Calcium 8.3 mg/dL (8.4-10.2); Carbon Dioxide 24 mmol/L (22-30); Chloride 102 mmol/L (98-107); Glucose 96 mg/dL (74-99); Magnesium 1.6 mg/dL (1.6-2.3); Non-African American GFR(CKD) >90 (>60 ml/min/1.73 sqM); Potassium 3.5 mmol/L (3.5-5.1); Sodium 136 mmol/L (137-145)
[2023-06-15 06:00] LABS: INR 1.1 (<1.2); Prothrombin Time 12.3 sec (10.0-12.5)
[2023-06-15] MEDS: MORPHINE SULFATE 4 MG/ML SYRINGE IV PRN (08:08)
[2023-06-15] MEDS: THIAMINE 100 MG TAB PO SCH (08:08)
[2023-06-15] MEDS: PANTOPRAZOLE 40 MG/10 ML VIAL IV SCH (08:12)
[2023-06-15] MEDS ORDERED: Potassium Replacement Protocol 1 EACH MISC MISCELLANE PRN (08:23)
--- NOTE | 2023-06-15 08:43 | P.PN ---
Subjective Progress Note Date: 06/15/23 Principal diagnosis: Critical limb ischemia Patient is seen and examined today as a follow-up. She remains in the ICU. She has Higginbotham catheter in place, she has not been up and ambulating. Heparin infusing per peripheral line. States she still having pain down her right leg a lthough it is improved and different from on admission. She is on [facility] protocol for alcohol withdrawal symptoms. She still been requesting morphine and Ativan. She denies any shortness of breath, chest pain, abdominal pain, nausea or vomiting. No bleeding from her access site. She has good range of motion of bilateral lower extremities, sensorimotor intact. Objective - Vital Signs Vital signs: Vital Signs Temp 98.1 F 06/15/23 08:15 Pulse 87 06/15/23 08:15 Resp 17 06/15/23 08:15 BP 116/73 06/15/23 08:15 Pulse Ox 91 L 06/15/23 08:15 FiO2 Intake & Output 06/14/23 06/15/23 06/15/23 18:59 06:59 18:59 Intake Total 2284.084 903 150 Output Total 1470 490 90 Balance 814.084 413 60 Weight 99.3 kg 99.6 kg Intake: IV 800 825 150 Lactated Ringers 1,000 ml 750 825 150 @ 75 mls/hr IV .[id number] [facility] Rx#:[id number] Intake, IV Titration 484.084 78 Amount Alteplase 10 mg In Sodium 85.167 Chloride 0.9% 90 ml @ 1 MG/HR 10 mls/hr IA .Q10H [facility] Rx#:[id number] Heparin Sod,Pork in 0.45% 78 NaCl 25,000 unit In 0.45 % NaCl 1 250ml.bag @ 10. 07 UNITS/KG/HR 10 mls/hr IV .Q24H [facility] Rx#: [id number] Heparin Sod,Pork in 0.45% 98.917 NaCl 25,000 unit In 0.45 % NaCl 1 250ml.bag @ 5 mls/hr IV .Q24H [facility] Rx#: [id number] Magnesium Sulfate-D5w Pmx 300 1 gm In Dextrose/Water 1 100ml.bag @ 100 mls/hr IVPB Q1H [facility] Rx#: [id number] Oral 1000 Output: Urine 1470 490 90 Other: Voiding Method Indwelling Catheter Indwelling Catheter Indwelling Catheter - Exam General appearance: The patient is alert, oriented, appears in no acute distress. HET: Head is normocephalic and atraumatic. Pupils are equal and reactive. Neck: Supple. Heart: Regular. Lungs: Equal expansion, normal respiratory effort. Abdomen: Soft, nontender, nondistended. Extremities: Right lower extremity warm to the touch, palpable DP and PT pulses. Left groin with dressing clean dry and intact. Neurological: No focal deficits. Sensorimotor intact bilateral lower extremities. - Labs CBC & Chem 7: 06/15/23 03:40 06/15/23 03:40 Labs: Abnormal Lab Results - Last 24 Hours (Table) 06/15/23 06/15/23 06/15/23 Range/Units 00:39 03:40 03:40 RBC 3.18 L (3.80-5.40) m/uL MCV 113.7 H (80.0-100.0) fL MCH 39.2 H (25.0-35.0) pg RDW 17.3 H (11.5-15.5) % Plt Count 125 L (150-450) k/uL Macrocytosis Marked A APTT 35.2 H (22.0-30.0) sec Sodium 136 L (137-145) mmol/L BUN 3 L (7-17) mg/dL Calcium 8.3 L (8.4-10.2) mg/dL Assessment and Plan Assessment: 1. 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 2. [place] 2b Acute limb ischemia 3. Alcoholism, alcohol withdrawal 4. Hypokalemia 5. Hypomagnesemia 6. Lactic acidosis likely secondary to #1, resolved Plan: 1. Discontinue heparin drip 2. Start Xarelto taper dose 3. Heart healthy diet 4. Discontinue Higginbotham catheter 5. Encourage ambulation 6. Echocardiogram ordered, evaluate for cardioembolic source 7. May transfer to cardiac stepdown unit 8. Monitor for withdrawal symptoms, CIWA protocol 9. Transition to oral pain medication, gabapentin added 10. Recommend tobacco and alcohol abstinence 11. Patient will need to follow-up with vascular surgery in 1-2 weeks Thank you for this consultation. The impression and plan of care has been dictated as directed. I performed a history and examination of this patient, discussed the same with the dictator. I agree with the dictator's note ,documented as a scribe. Any additional findings or plans will be noted.
[2023-06-15] MEDS ORDERED: Magnesium Replacement Protocol 1 EACH MISC MISCELLANE PRN (08:48)
[2023-06-15] MEDS: POTASSIUM CHLORIDE ER 20 MEQ TAB.ER PO SCH ×2 (08:49→15:33)
[2023-06-15] MEDS: RIVAROXABAN 15 MG TAB PO SCH ×2 (08:49→17:51)
[2023-06-15] MEDS: MAGNESIUM SULFATE-D5W PMX 1 GM in DEXTROSE/WATER 1 100ML.BAG IVPB SCH ×2 (10:32→18:33)
[2023-06-15] MEDS: HYDROcodone/APAP 5-325MG 1 EACH TAB PO PRN ×3 (10:41→22:09)
--- NOTE | 2023-06-15 10:56 | P.PN ---
Subjective Progress Note Date: 06/15/23 * 47-year-old patient with past medical history significant for alcohol abuse, polysubstance use gastroesophageal reflux disease presents to the emergency department with complaint of severe discomfort and right lower extremity * Patient has been feeling ill for several weeks, she presents to ER few hour pr ior to presentation had increased pain in right leg. On evaluation in ER right lower extremity was noted to be cold * Further workup included a stat CT angiography lower extremity which showed arterial occlusion of the right GENERAL INTERNIST and SFA loss spanning 6 cm>> patient started on IV heparin, vascular surgery was consulted * Blood work obtained in ER included CBC which were WBC of 9.2 hemoglobin 14.3 platelet count of 215. Serum chemistry sodium 137 potassium 2.4 carbon dioxide 12 BUNs 8 creatinine 0.86 lactic acid on admission around 9 * Patient was taken to lab manager and underwent ultrasound-guided iliofemoral angiogram selective right lower extremity angiogram and thrombolysis * 06/14: Patient seen and evaluated bedside, patient monitored in ICU, magnesium replaced, continue to monitor on Cipro protocol, plan for TPA scheduled angiogram for today, vascular surgery team following, continue to monitor H&H patient received TPA for right lower extremity ischemia * 06/15: Patient seen and evaluated bedside, on heparin infusion versus surgery planned to transition to 0 also, encourage ambulation, echocardiogram ordered, oral pain regimen for discharge planning REVIEW OF SYSTEMS: Right leg pain improved CONSTITUTIONAL: No fever, no malaise, no fatigue. HEENT: No recent visual problems or hearing problems. Denied any sore throat. CARDIOVASCULAR: No chest pain, orthopnea, PND, no palpitations, no syncope. PULMONARY: No shortness of breath, no cough, no hemoptysis. GASTROINTESTINAL: No diarrhea, no nausea, no vomiting, no abdominal pain. NEUROLOGICAL: No headaches, no weakness, no numbness. HEMATOLOGICAL: Denies any bleeding or petechiae. GENITOURINARY: Denies any burning micturition, frequency, or urgency. MUSCULOSKELETAL/RHEUMATOLOGICAL: Denies any joint pain, swelling, or any muscle pain. ENDOCRINE: Denies any polyuria or polydipsia. PHYSICAL EXAMINATION: GENERAL: The patient is alert and oriented x3, HEENT: Pupils are round and equally reacting to light. EOMI. CARDIOVASCULAR: S1 and S2 present. No murmurs, rubs, or gallops. Right leg pain, diminished pulses right lower extremity, dorsalis pedis and posterior tibial palpable PULMONARY: Chest is clear to auscultation, no wheezing or crackles. ABDOMEN: Soft, nontender, nondistended, normoactive bowel sounds. No palpable organomegaly. MUSCULOSKELETAL: No joint swelling or deformity. EXTREMITIES: No cyanosis, clubbing, or pedal edema. NEUROLOGICAL: Gross neurological examination did not reveal any focal deficits. SKIN: No rashes. Objective - Vital Signs Vital signs: Vital Signs Temp 98.1 F 06/15/23 08:15 Pulse 87 06/15/23 10:00 Resp 20 06/15/23 10:00 BP 134/122 06/15/23 10:15 Pulse Ox 91 L 06/15/23 08:15 FiO2 Intake & Output 06/14/23 06/15/23 06/15/23 18:59 06:59 18:59 Intake Total 2284.084 903 150 Output Total 1470 490 90 Balance 814.084 413 60 Weight 99.3 kg 99.6 kg Intake: IV 800 825 150 Lactated Ringers 1,000 ml 750 825 150 @ 75 mls/hr IV .[id number] [facility] Rx#:[id number] Intake, IV Titration 484.084 78 Amount Alteplase 10 mg In Sodium 85.167 Chloride 0.9% 90 ml @ 1 MG/HR 10 mls/hr IA .Q10H [facility] Rx#:[id number] Heparin Sod,Pork in 0.45% 78 NaCl 25,000 unit In 0.45 % NaCl 1 250ml.bag @ 10. 07 UNITS/KG/HR 10 mls/hr IV .Q24H [facility] Rx#: [id number] Heparin Sod,Pork in 0.45% 98.917 NaCl 25,000 unit In 0.45 % NaCl 1 250ml.bag @ 5 mls/hr IV .Q24H [facility] Rx#: [id number] Magnesium Sulfate-D5w Pmx 300 1 gm In Dextrose/Water 1 100ml.bag @ 100 mls/hr IVPB Q1H [facility] Rx#: [id number] Oral 1000 Output: Urine 1470 490 90 Other: Voiding Method Indwelling Catheter Indwelling Catheter Indwelling Catheter - Labs CBC & Chem 7: 06/15/23 03:40 06/15/23 03:40 Labs: Abnormal Lab Results - Last 24 Hours (Table) 06/15/23 06/15/23 06/15/23 Range/Units 00:39 03:40 03:40 RBC 3.18 L (3.80-5.40) m/uL MCV 113.7 H (80.0-100.0) fL MCH 39.2 H (25.0-35.0) pg RDW 17.3 H (11.5-15.5) % Plt Count 125 L (150-450) k/uL Macrocytosis Marked A APTT 35.2 H (22.0-30.0) sec Sodium 136 L (137-145) mmol/L BUN 3 L (7-17) mg/dL Calcium 8.3 L (8.4-10.2) mg/dL Assessment and Plan Assessment: Assessment and plan * Acute limb ischemia right lower extremity involving right iliac and femoral artery segments status post TPA * Polysubstance use/alcohol use disorder * Lactic acidosis secondary to ischemia * Hypokalemia * Metabolic acidosis * Consultation obtained from vascular surgery/critical care medicine * Continue with neurovascular checks right lower extremity/patient underwent TPA and transferred to ICU * Continue patient on fluid resuscitation, anticoagulation with IV heparin, transitioned to xarelto, continue Trimble and gabapentin for pain control * In regards to lactic acidosis, follow-up lactate levels ordered continue with resuscitation * In regards to electrolyte abnormality follow-up basic metabolic panel ordered * In regards to alcohol use continue patient on alcohol withdrawal protocol * CODE STATUS is full code
[2023-06-15] MEDS: GABAPENTIN 300 MG CAP PO SCH ×2 (15:14→19:48)
--- NOTE | 2023-06-15 15:42 | P.PN ---
Subjective Progress Note Date: 06/15/23 Principal diagnosis: Acute right lower extremity ischemia This is a 47-year-old female patient was taken to the vascular lab yesterday with an acute limb ischemia involving the right lower extremity. The patient had an angiogram of the iliofemoral artery and the patient underwent elective catheterization and initiated on TPA thrombolysis. On today's evaluation, the patient has improved wants and color the right foot. Pulses dorsalis pedis is obtained by Doppler signal. No pain right lower extremity. The patient is going to be taken to the vascular lab again. This patient has history of smoking, alcohol abuse and she had chronic pain in the right lower extremity/wi th mobility. She may have underlying medication. The CT of the lower extremity showed arterial occlusion of the junction of the right PAPER COUNTER and SFA has this was seen at the PFA and there is mild diffuse caliber narrowing of the remainder of the SFA but more focused severe stenosis level of the adductor hiatus. Patient also has calcified plaques involving the abdominal aorta. she is currently doi ng well. she is hemodynamically stable. the patient had the [place] of 11.4, hemoglobin 13.4 and platelet count 181. inr is 1.2 with a pt of 12.5 and a fibrinogen level is up to 93. ptt was 88 earlier. sodium levels of 136. aspirin 3.57 with a creatinine of 0.6 and a serum bicarb level is at 27. urine drug screen is positive for thc and benzodiazepines. Reevaluated today on 06/14/2023, patient remains in the ICU, still receiving intra-arterial TPA, this is being addressed by vascular surgery. Clinically however the patient is doing great, and she has excellent pulses in both lower extremities including dorsalis pedis pulse and posterior tibial pulses. No evidence of ischemic changes in the feet bilaterally. Patient is hemodynamically stable. CBC is basically unremarkable electrolytes are normal renal profile is normal. Surgery is planning angiogram and recheck today to hernandez on the TPA. Patient presented with a embolic occlusion of right ear neck and femoral arterial segments and she seems to be doing well since TPA was started. Patient was reevaluated today on 06/15/20 doing great, patient is now on Xarelto, repeat angiogram showed complete resolution of her thrombosis from the right lower extremity, patient is now transitioned to Xarelto, and I believe the patient could be transferred out of the ICU to a regular medical floor. And once the patient is cleared by vascular to go home, I will clear the patient for discharge planning. CBC is relatively normal hemoglobin is 12.4 WBC count of 7.4, basic metabolic profile is normal and renal profile is normal Objective - Vital Signs Vital signs: Vital Signs Temp 97.9 F 06/15/23 12:00 Pulse 107 H 06/15/23 15:30 Resp 17 06/15/23 15:30 BP 113/76 06/15/23 15:30 Pulse Ox 91 L 06/15/23 08:15 FiO2 Intake & Output 06/14/23 06/15/23 06/15/23 18:59 06:59 18:59 Intake Total 2284.084 903 150 Output Total 1470 490 90 Balance 814.084 413 60 Weight 99.3 kg 99.6 kg Intake: IV 800 825 150 Lactated Ringers 1,000 ml 750 825 150 @ 75 mls/hr IV .[id number] [facility] Rx#:[id number] Intake, IV Titration 484.084 78 Amount Alteplase 10 mg In Sodium 85.167 Chloride 0.9% 90 ml @ 1 MG/HR 10 mls/hr IA .Q10H [facility] Rx#:[id number] Heparin Sod,Pork in 0.45% 78 NaCl 25,000 unit In 0.45 % NaCl 1 250ml.bag @ 10. 07 UNITS/KG/HR 10 mls/hr IV .Q24H [facility] Rx#: [id number] Heparin Sod,Pork in 0.45% 98.917 NaCl 25,000 unit In 0.45 % NaCl 1 250ml.bag @ 5 mls/hr IV .Q24H [facility] Rx#: [id number] Magnesium Sulfate-D5w Pmx 300 1 gm In Dextrose/Water 1 100ml.bag @ 100 mls/hr IVPB Q1H [facility] Rx#: [id number] Oral 1000 Output: Urine 1470 490 90 Other: Voiding Method Indwelling Catheter Indwelling Catheter Toilet - Exam Physical Exam: Revealed 47-year-old female in no distress on room air Head: Atraumatic, normocephalic. HEENT:[Neck is supple.] [No neck masses.] [No thyromegaly.] [No JVD.] Chest: [Clear throughout, no crackles, no rhonchi, no wheezes.] Cardiac Exam: [Normal S1 and S2, no S3 gallop, no murmur.] Abdomen: [Soft, nontender, no megaly, no rebound, no guarding, normal bowel sounds.] Extremities: [No clubbing, no edema, no cyanosis.] Good distal pulses bilaterally Neurological Exam: [No focal neurologic deficit.] Alert oriented 3 Psychiatric: Normal mood, affect and normal mental status examination Skin: No rashes - Labs CBC & Chem 7: 06/15/23 03:40 06/15/23 03:40 Labs: Abnormal Lab Results - Last 24 Hours (Table) 06/15/23 06/15/23 06/15/23 Range/Units 00:39 03:40 03:40 RBC 3.18 L (3.80-5.40) m/uL MCV 113.7 H (80.0-100.0) fL MCH 39.2 H (25.0-35.0) pg RDW 17.3 H (11.5-15.5) % Plt Count 125 L (150-450) k/uL Macrocytosis Marked A APTT 35.2 H (22.0-30.0) sec Sodium 136 L (137-145) mmol/L BUN 3 L (7-17) mg/dL Calcium 8.3 L (8.4-10.2) mg/dL Assessment and Plan Assessment: Impression: Acute embolic occlusion of right iliac and femoral arterial segments, status post intra-arterial TPA, status post selective right lower extremity angiogram and initiation of TPA through left common femoral arterial access. Postoperative day #3 History of alcoholism Tobacco dependence syndrome generalized anxiety disorder History of claudications and peripheral vessel occlusive disease Recommendation: Transferred to the regular medical floor Vascular surgery to clear for discharge possibly in the next 24 hours We will continue to follow. Continue incentive spirometry Watch for any potential alcohol withdrawal. So far none. Time with Patient: Less than 30
--- NOTE | 2023-06-15 17:22 | CA ---
Transthoracic Echo Report Name: Heather Pelayo Age: 47 Gender: F : 1975 Exam Date: 06/15/2023 12:45 Exam Location: [facility] Ht (in): 60 Wt (lb): 219 Ordering Physician: Catherine Prajapati Attending/Referring Phys: Professor Of Musicology Vidya Casper RDCS Procedure CPT: Indications: acute RLE art thrombus, evaluate for cardioembolic Cardiac Hx: Technical Quality: Fair Contrast 1: Total Dose (mL): Contrast 2: Total Dose (mL): MEASUREMENTS (Male / Female) Normal Values 2D ECHO LV Diastolic Diameter PLAX 4.0 cm 4.2 - 5.9 / 3.9 - 5.3 cm LV Systolic Diameter PLAX 2.7 cm IVS Diastolic Thickness 0.9 cm 0.6 - 1.0 / 0.6 - 0.9 cm LVPW Diastolic Thickness 1.0 cm 0.6 - 1.0 / 0.6 - 0.9 cm LV Relative Wall Thickness 0.5 RV Internal Dim ED PLAX 3.6 cm LA Systolic Diameter LX 3.6 cm 3.0 - 4.0 / 2.7 - 3.8 cm LV Diastolic Volume MOD 4C 84.1 cm??? LV Systolic Volume MOD 4C 38.6 cm??? LV Ejection Fraction MOD 4C 54.1 % LV Cardiac Index MOD 4C 1960.6 cm???/min???m??? LV Diastolic Length 4C 8.0 cm LV Systolic Length 4C 6.4 cm LV Diastolic Volume MOD 2C 66.9 cm??? LV Systolic Volume MOD 2C 32.7 cm??? LV Ejection Fraction MOD 2C 51.1 % LV Cardiac Index MOD 2C 1472.7 cm???/min???m??? LV Diastolic Length 2C 7.5 cm LV Systolic Length 2C 6.3 cm LA Volume 40.3 cm??? 18 - 58 / 22 - 52 cm??? LA Volume Index 19.1 cm???/m??? 16 - 28 cm???/m??? M-MODE Aortic Root Diameter MM 3.1 cm MV E Point Septal Separation 0.5 cm AV Cusp Separation MM 1.4 cm DOPPLER AV Peak Velocity 115.4 cm/s AV Peak Gradient 5.3 mmHg MV Area PHT 3.2 cm??? Mitral E Point Velocity 70.4 cm/s Mitral A Point Velocity 72.0 cm/s Mitral E to A Ratio 1.0 MV Deceleration Time 237.7 ms MV E' Velocity 8.4 cm/s Mitral E to MV E' Ratio 8.4 TR Peak Velocity 372.4 cm/s TR Peak Gradient 55.5 mmHg Right Ventricular Systolic Press 59.8 mmHg FINDINGS Left Ventricle Left ventricular ejection fraction is estimated at 55-60 %. Left ventricular cavity size normal. Left ventricular wall thickness normal. Right Ventricle Mild right ventricular dilatation. Severe pulmonary hypertension. Right ventricular systolic pressure estimated at 60 mm hg. Right Atrium Normal right atrial size. Left Atrium Normal left atrial size. Mitral Valve Structurally normal mitral valve. Trace mitral regurgitation. Aortic Valve Trileaflet aortic valve. No aortic valve stenosis or regurgitation. Tricuspid Valve Structurally normal tricuspid valve. Mild tricuspid regurgitation. Pulmonic Valve Structurally normal pulmonic valve. Trace pulmonic regurgitation. Pericardium No pericardial effusion. Aorta Normal size aortic root and proximal ascending aorta. CONCLUSIONS Normal LV systolic function Enlarged right ventricle with severe pulmonary hypertension Consider transesophageal echo if clinically indicated Previewed by: Dr. Presley Geronimo MD (Electronically Signed) Final Date: 15 June 2023 17:21
[2023-06-16] MEDS: LACTATED RINGERS 1,000 ML IV SCH ×2 (03:34→17:06)
[2023-06-16] MEDS: HYDROcodone/APAP 5-325MG 1 EACH TAB PO PRN ×2 (03:55→10:18)
[2023-06-16] MEDS: LORazepam 0.5 MG TAB PO PRN ×2 (03:59→12:11)
[2023-06-16 04:38] LABS: African American GFR (CKD) >90 (>60 ml/min/1.73 sqM); Anion Gap 6 mmol/L; Blood Urea Nitrogen <2 mg/dL (7-17); Carbon Dioxide 25 mmol/L (22-30); Chloride 103 mmol/L (98-107); Glucose 78 mg/dL (74-99); Magnesium 1.8 mg/dL (1.6-2.3); Non-African American GFR(CKD) >90 (>60 ml/min/1.73 sqM); Potassium 3.7 mmol/L (3.5-5.1); Sodium 134 mmol/L (137-145)
[2023-06-16 04:39] LABS: Anisocytosis Slight; HCT 36.1 % (34.0-46.0); HGB 12.1 gm/dL (11.4-16.0); MCHC 33.6 g/dL (31.0-37.0); MCV 112.9 fL (80.0-100.0); Mean Platelet Volume 7.8; Platelet Count 132 k/uL (150-450); RDW 17.8 % (11.5-15.5); WBC 4.7 k/uL (3.8-10.6)
[2023-06-16 04:41] LABS: Macrocytosis Marked
[2023-06-16] MEDS ORDERED: MAGNESIUM SULFATE-D5W PMX 1 GM in DEXTROSE/WATER 1 100ML.BAG IVPB ONE (04:46)
[2023-06-16] MEDS ORDERED: POTASSIUM CHLORIDE ER 20 MEQ TAB.ER PO SCH (05:00)
[2023-06-16] MEDS: ACETAMINOPHEN TAB 325 MG TAB PO PRN (06:25)
[2023-06-16] MEDS: RIVAROXABAN 15 MG TAB PO SCH ×2 (06:27→17:07)
[2023-06-16] MEDS: traMADol 50 MG TAB PO PRN ×3 (08:15→20:28)
[2023-06-16] MEDS: GABAPENTIN 300 MG CAP PO SCH ×2 (08:15→19:57)
[2023-06-16] MEDS: THIAMINE 100 MG TAB PO SCH (08:15)
[2023-06-16] MEDS: PANTOPRAZOLE 40 MG/10 ML VIAL IV SCH (08:15)
--- NOTE | 2023-06-16 10:40 | CDI ---
Documentation Clarification Form Date: 06/16/2023 10:10:53 AM From: Maricel Reardon RN, CCDS Email: [email or web address] Admit Date: 06/12/2023 02:31:00 PM Patient Name: Heather Pelayo Visit Number: [id number] Discharge Date: ATTENTION: The Clinical Documentation Specialists (CDI) and [facility] Coding Staff appreciate your assistance in clarifying documentation. Please respond to the clarification below the line at the bottom and electronically sign. The CDI & [facility] Coding staff will review the response and follow-up if needed. Please note: Queries are made part of the Legal Health Record. If you have any questions, please contact the author of this message via ITS. Dr. Leilani Mcbride Patient has a documented BMI of 42.7. Additional clarification is requested. History/Risk Factors: alcohol abuse, polysubstance use, bipolar, depression, anxiety and GERD. Presents with severe pain to right lower extremity. Admitted with arterial occlusion and s/p thrombolysis. Clinical Indicators: Patients weight is 99.3kg Patients height is 5 feet Calculated BMI is 42.7 Treatments: 1-2 person assist 06/14-06/15, specialty bed Nutritional Education: monitor po intake, NPO status and tolerance to diet advancement 06/14 Dietary Consult: poor po intake and NPO. Obese Please clarify if patients BMI indicates an additional diagnosis: [ ] Overweight [ ] Obesity, Class 1 [ ] Obesity, Class 2 [ y ] Morbid (Extreme) (severe) obesity [ ] No additional diagnosis/not clinically significant [ ] Other, please specify ____ [ ] Unable to determine Reference: NIH Classification for BMI Overweight BMI 25-29.9 Obesity (Class 1) BMI 30-34.9 Obesity (Class 2) BMI 35-39.9 Morbid obesity (Class 3/Extreme/severe) BMI =40 MTDD
[2023-06-16 10:50] VITALS: BMI 43.0
--- NOTE | 2023-06-16 11:18 | P.PN ---
Subjective Progress Note Date: 06/16/23 * 47-year-old patient with past medical history significant for alcohol abuse, polysubstance use gastroesophageal reflux disease presents to the emergency department with complaint of severe discomfort and right lower extremity * Patient has been feeling ill for several weeks, she presents to ER few hour pr ior to presentation had increased pain in right leg. On evaluation in ER right lower extremity was noted to be cold * Further workup included a stat CT angiography lower extremity which showed arterial occlusion of the right PHP CONSULTANT and SFA loss spanning 6 cm>> patient started on IV heparin, vascular surgery was consulted * Blood work obtained in ER included CBC which were WBC of 9.2 hemoglobin 14.3 platelet count of 215. Serum chemistry sodium 137 potassium 2.4 carbon dioxide 12 BUNs 8 creatinine 0.86 lactic acid on admission around 9 * Patient was taken to slab lifting supervisor and underwent ultrasound-guided iliofemoral angiogram selective right lower extremity angiogram and thrombolysis * 06/14: Patient seen and evaluated bedside, patient monitored in ICU, magnesium replaced, continue to monitor on Cipro protocol, plan for TPA scheduled angiogram for today, vascular surgery team following, continue to monitor H&H patient received TPA for right lower extremity ischemia * 06/15: Patient seen and evaluated bedside, on heparin infusion versus surgery planned to transition to xarelto , encourage ambulation, echocardiogram ordered, oral pain regimen for discharge planning * 06/16: Patient seen and evaluated at bedside, patient complains of acute right knee discomfort, x-ray ordered, range of motion limited, follow-up CBC basic metabolic panel obtained REVIEW OF SYSTEMS: Right leg pain improved, right knee pain musculoskeletal CONSTITUTIONAL: No fever, no malaise, no fatigue. HEENT: No recent visual problems or hearing problems. Denied any sore throat. CARDIOVASCULAR: No chest pain, orthopnea, PND, no palpitations, no syncope. PULMONARY: No shortness of breath, no cough, no hemoptysis. GASTROINTESTINAL: No diarrhea, no nausea, no vomiting, no abdominal pain. NEUROLOGICAL: No headaches, no weakness, no numbness. HEMATOLOGICAL: Denies any bleeding or petechiae. GENITOURINARY: Denies any burning micturition, frequency, or urgency. MUSCULOSKELETAL/RHEUMATOLOGICAL: Right knee pain. ENDOCRINE: Denies any polyuria or polydipsia. PHYSICAL EXAMINATION: GENERAL: The patient is alert and oriented x3, HEENT: Pupils are round and equally reacting to light. EOMI. CARDIOVASCULAR: S1 and S2 present. No murmurs, rubs, or gallops. Right leg pain, diminished pulses right lower extremity, dorsalis pedis and posterior tibial palpable PULMONARY: Chest is clear to auscultation, no wheezing or crackles. ABDOMEN: Soft, nontender, nondistended, normoactive bowel sounds. No palpable organomegaly. MUSCULOSKELETAL: Injured motion limited right knee EXTREMITIES: No cyanosis, clubbing, or pedal edema. NEUROLOGICAL: Gross neurological examination did not reveal any focal deficits. SKIN: No rashes. Objective - Vital Signs Vital signs: Vital Signs Temp 97.8 F 06/16/23 08:23 Pulse 91 06/16/23 08:23 Resp 18 06/16/23 08:23 BP 107/70 06/16/23 08:23 Pulse Ox 96 06/16/23 08:23 FiO2 Intake & Output 06/15/23 06/16/23 06/16/23 18:59 06:59 18:59 Intake Total 250 675 Output Total 90 1000 Balance 160 -325 Weight 99.9 kg 99.9 kg Intake: IV 150 675 Lactated Ringers 1,000 ml 150 675 @ 75 mls/hr IV .[id number] [facility] Rx#:[id number] Oral 100 Output: Urine 90 1000 Other: Voiding Method Toilet Bedside Commode Bedside Commode # Voids 2 2 - Labs CBC & Chem 7: 06/16/23 03:43 06/16/23 03:43 Labs: Abnormal Lab Results - Last 24 Hours (Table) 06/16/23 06/16/23 Range/Units 03:43 03:43 RBC 3.20 L (3.80-5.40) m/uL MCV 112.9 H (80.0-100.0) fL MCH 38.0 H (25.0-35.0) pg RDW 17.8 H (11.5-15.5) % Plt Count 132 L (150-450) k/uL Macrocytosis Marked A Sodium 134 L (137-145) mmol/L BUN <2 L (7-17) mg/dL Calcium 8.0 L (8.4-10.2) mg/dL Assessment and Plan Assessment: Assessment and plan * Acute limb ischemia right lower extremity involving right iliac and femoral artery segments status post TPA * Polysubstance use/alcohol use disorder * Lactic acidosis secondary to ischemia * Hypokalemia * Metabolic acidosis * Consultation obtained from vascular surgery/critical care medicine * Continue with neurovascular checks right lower extremity/patient underwent TPA and transferred to ICU, medical management in ICU okay to transfer to general medical floor * Continue patient on fluid resuscitation, anticoagulation with IV heparin, transitioned to xarelto, continue see code on and gabapentin for pain control * In regards to lactic acidosis, follow-up lactate levels ordered continue with resuscitation * In regards to electrolyte abnormality follow-up basic metabolic panel ordered * In regards to alcohol use continue patient on alcohol withdrawal protocol * CODE STATUS is full code
--- NOTE | 2023-06-16 13:43 | P.PN ---
Subjective Progress Note Date: 06/16/23 Principal diagnosis: Acute right lower extremity ischemia This is a 47-year-old female patient was taken to the vascular lab yesterday with an acute limb ischemia involving the right lower extremity. The patient had an angiogram of the iliofemoral artery and the patient underwent elective catheterization and initiated on TPA thrombolysis. On today's evaluation, the patient has improved wants and color the right foot. Pulses dorsalis pedis is obtained by Doppler signal. No pain right lower extremity. The patient is going to be taken to the vascular lab again. This patient has history of smoking, alcohol abuse and she had chronic pain in the right lower extremity/wi th mobility. She may have underlying medication. 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 Patient also has calcified plaques involving the abdominal aorta. she is currently doi ng well. she is hemodynamically stable. the patient had the [place] of 11.4, hemoglobin 13.4 and platelet count 181. inr is 1.2 with a pt of 12.5 and a fibrinogen level is up to 93. ptt was 88 earlier. sodium levels of 136. aspirin 3.57 with a creatinine of 0.6 and a serum bicarb level is at 27. urine drug screen is positive for thc and benzodiazepines. Reevaluated today on 06/14/2023, patient remains in the ICU, still receiving intra-arterial TPA, this is being addressed by vascular surgery. Clinically however the patient is doing great, and she has excellent pulses in both lower extremities including dorsalis pedis pulse and posterior tibial pulses. No evidence of ischemic changes in the feet bilaterally. Patient is hemodynamically stable. CBC is basically unremarkable electrolytes are normal renal profile is normal. Surgery is planning angiogram and recheck today to hernandez on the TPA. Patient presented with a embolic occlusion of right ear neck and femoral arterial segments and she seems to be doing well since TPA was started. Patient was reevaluated today on 06/15/20 doing great, patient is now on Xarelto, repeat angiogram showed complete resolution of her thrombosis from the right lower extremity, patient is now transitioned to Xarelto, and I believe the patient could be transferred out of the ICU to a regular medical floor. And once the patient is cleared by vascular to go home, I will clear the patient for discharge planning. CBC is relatively normal hemoglobin is 12.4 WBC count of 7.4, basic metabolic profile is normal and renal profile is normal Patient was reevaluated today on 06/16/23, patient is doing great, relatively asymptomatic, she is an overflow presently in the ICU. Her right lower extremity ischemia has resolved, patient is on Xarelto, she is on room air, and her IV fluid is at 75 mL/h using 0.9 normal saline. Patient is relatively asymptomatic except for some vague discomfort in her right lower extremity and pain but no evidence of ischemic changes on physical examination today. CBC is relatively normal basic metabolic profile is normal renal profile is normal Objective - Vital Signs Vital signs: Vital Signs Temp 97.8 F 06/16/23 08:23 Pulse 91 06/16/23 08:23 Resp 18 06/16/23 08:23 BP 107/70 06/16/23 08:23 Pulse Ox 96 06/16/23 08:23 FiO2 Intake & Output 06/15/23 06/16/23 06/16/23 18:59 06:59 18:59 Intake Total 250 675 Output Total 90 1000 Balance 160 -325 Weight 99.9 kg 99.9 kg Intake: IV 150 675 Lactated Ringers 1,000 ml 150 675 @ 75 mls/hr IV .[id number] [facility] Rx#:[id number] Oral 100 Output: Urine 90 1000 Other: Voiding Method Toilet Bedside Commode Bedside Commode # Voids 2 2 - Exam Physical Exam: Revealed 47-year-old female in no distress on room air Head: Atraumatic, normocephalic. HEENT:[Neck is supple.] [No neck masses.] [No thyromegaly.] [No JVD.] Chest: [Clear throughout, no crackles, no rhonchi, no wheezes.] Cardiac Exam: [Normal S1 and S2, no S3 gallop, no murmur.] Abdomen: [Soft, nontender, no megaly, no rebound, no guarding, normal bowel sounds.] Extremities: [No clubbing, no edema, no cyanosis.] Good distal pulses bilaterally Neurological Exam: [No focal neurologic deficit.] Alert oriented 3 Psychiatric: Normal mood, affect and normal mental status examination Skin: No rashes - Labs CBC & Chem 7: 06/16/23 03:43 06/16/23 03:43 Labs: Abnormal Lab Results - Last 24 Hours (Table) 06/16/23 06/16/23 Range/Units 03:43 03:43 RBC 3.20 L (3.80-5.40) m/uL MCV 112.9 H (80.0-100.0) fL MCH 38.0 H (25.0-35.0) pg RDW 17.8 H (11.5-15.5) % Plt Count 132 L (150-450) k/uL Macrocytosis Marked A Sodium 134 L (137-145) mmol/L BUN <2 L (7-17) mg/dL Calcium 8.0 L (8.4-10.2) mg/dL Assessment and Plan Assessment: Impression: Acute embolic occlusion of right iliac and femoral arterial segments, status post intra-arterial TPA, status post selective right lower extremity angiogram and initiation of TPA through left common femoral arterial access. Postoperative day #4 History of alcoholism Tobacco dependence syndrome generalized anxiety disorder History of claudications and peripheral vessel occlusive disease Recommendation: Transferred to the regular medical floor Vascular surgery to clear for discharge possibly in the next 24 hours Continue incentive spirometry We will continue to follow as needed Time with Patient: Less than 30
--- NOTE | 2023-06-16 15:18 | XR ---
EXAMINATION TYPE: XR knee 2 views RT DATE OF EXAM: 06/16/2023 Comparison: None Clinical History: 47-year-old female Right knee pain, range of motion limited Findings: There is mild subcutaneous soft tissue swelling. Extensor mechanism is intact. No knee joint effusion . On these 2 views, no acute fracture, subluxation, dislocation is seen. Impression: Mild subcutaneous soft tissue swelling. No acute osseous abnormality seen.
--- NOTE | 2023-06-16 15:37 | P.PN ---
Subjective Progress Note Date: 06/16/23 pt s/e. mild complaints of thigh and knee pain on the right with the bruising. Foot overall feels better than previous. Objective - Vital Signs Vital signs: Vital Signs Temp 98.5 F 06/16/23 12:00 Pulse 101 H 06/16/23 12:00 Resp 16 06/16/23 12:00 BP 117/62 06/16/23 12:00 Pulse Ox 96 06/16/23 12:00 FiO2 Intake & Output 06/15/23 06/16/23 06/16/23 18:59 06:59 18:59 Intake Total 250 675 Output Total 90 1000 Balance 160 -325 Weight 99.9 kg 99.9 kg Intake: IV 150 675 Lactated Ringers 1,000 ml 150 675 @ 75 mls/hr IV .[id number] [facility] Rx#:[id number] Oral 100 Output: Urine 90 1000 Other: Voiding Method Toilet Bedside Commode Bedside Commode # Voids 2 2 - Exam Gen. is a pleasant cooperative female in no acute distress. Right lower extremity is mild areas of ecchymosis on the posterior leg. Mild swelling throughout. Palpable DP PT on the right. Motor sensory intact. - Labs CBC & Chem 7: 06/16/23 03:43 06/16/23 03:43 Labs: Abnormal Lab Results - Last 24 Hours (Table) 06/16/23 06/16/23 Range/Units 03:43 03:43 RBC 3.20 L (3.80-5.40) m/uL MCV 112.9 H (80.0-100.0) fL MCH 38.0 H (25.0-35.0) pg RDW 17.8 H (11.5-15.5) % Plt Count 132 L (150-450) k/uL Macrocytosis Marked A Sodium 134 L (137-145) mmol/L BUN <2 L (7-17) mg/dL Calcium 8.0 L (8.4-10.2) mg/dL Assessment and Plan Assessment: [place] 2b Acute limb ischemia, status post revascularization with thrombolysis Alcoholism, last drink about 24 hours prior to admission Plan: Today patient appears improving. Has palpable DP PT. Likely the pain and leg is due to the swelling and reperfusion. No evidence of ischemia or evidence of compartment syndrome. Leg is soft. At this time patient is on oral anticoagulation and may be discharge from a vascular surgical standpoint. Follow-up in the office in 2 weeks.
[2023-06-17] MEDS: traMADol 50 MG TAB PO PRN ×4 (03:16→20:42)
[2023-06-17] MEDS: LACTATED RINGERS 1,000 ML IV SCH ×2 (03:16→22:04)
[2023-06-17 04:25] LABS: Anisocytosis Slight; HCT 35.1 % (34.0-46.0); HGB 12.2 gm/dL (11.4-16.0); Hypochromasia Slight; MCH 39.8 pg (25.0-35.0); MCHC 34.7 g/dL (31.0-37.0); MCV 114.7 fL (80.0-100.0); Macrocytosis Marked; Mean Platelet Volume 7.7; Platelet Count 174 k/uL (150-450); RBC 3.06 m/uL (3.80-5.40); RDW 17.4 % (11.5-15.5); WBC 5.3 k/uL (3.8-10.6)
[2023-06-17 04:46] LABS: African American GFR (CKD) >90 (>60 ml/min/1.73 sqM); Anion Gap 7 mmol/L; Blood Urea Nitrogen <2 mg/dL (7-17); Calcium 8.2 mg/dL (8.4-10.2); Carbon Dioxide 27 mmol/L (22-30); Chloride 102 mmol/L (98-107); Glucose 90 mg/dL (74-99); Magnesium 1.6 mg/dL (1.6-2.3); Non-African American GFR(CKD) >90 (>60 ml/min/1.73 sqM); Potassium 3.6 mmol/L (3.5-5.1); Sodium 136 mmol/L (137-145)
[2023-06-17] MEDS: MAGNESIUM SULFATE-D5W PMX 1 GM in DEXTROSE/WATER 1 100ML.BAG IVPB SCH ×2 (05:09→06:10)
[2023-06-17] MEDS ORDERED: POTASSIUM CHLORIDE ER 20 MEQ TAB.ER PO SCH (06:00)
[2023-06-17] MEDS: RIVAROXABAN 15 MG TAB PO SCH ×2 (06:39→17:26)
[2023-06-17] MEDS: GABAPENTIN 300 MG CAP PO SCH ×2 (08:42→19:48)
[2023-06-17] MEDS: THIAMINE 100 MG TAB PO SCH (08:42)
[2023-06-17] MEDS: PANTOPRAZOLE 40 MG/10 ML VIAL IV SCH (08:42)
[2023-06-17] MEDS: ONDANSETRON 4 MG/2 ML VIAL IVP PRN (11:04)
--- NOTE | 2023-06-17 11:59 | P.PN ---
Subjective Progress Note Date: 06/17/23 Principal diagnosis: Acute right lower extremity ischemia This is a 47-year-old female patient was taken to the vascular lab yesterday with an acute limb ischemia involving the right lower extremity. The patient had an angiogram of the iliofemoral artery and the patient underwent elective catheterization and initiated on TPA thrombolysis. On today's evaluation, the patient has improved wants and color the right foot. Pulses dorsalis pedis is obtained by Doppler signal. No pain right lower extremity. The patient is going to be taken to the vascular lab again. This patient has history of smoking, alcohol abuse and she had chronic pain in the right lower extremity/wi th mobility. She may have underlying medication. 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 Patient also has calcified plaques involving the abdominal aorta. she is currently doi ng well. she is hemodynamically stable. the patient had the [place] of 11.4, hemoglobin 13.4 and platelet count 181. inr is 1.2 with a pt of 12.5 and a fibrinogen level is up to 93. ptt was 88 earlier. sodium levels of 136. aspirin 3.57 with a creatinine of 0.6 and a serum bicarb level is at 27. urine drug screen is positive for thc and benzodiazepines. Reevaluated today on 06/14/2023, patient remains in the ICU, still receiving intra-arterial TPA, this is being addressed by vascular surgery. Clinically however the patient is doing great, and she has excellent pulses in both lower extremities including dorsalis pedis pulse and posterior tibial pulses. No evidence of ischemic changes in the feet bilaterally. Patient is hemodynamically stable. CBC is basically unremarkable electrolytes are normal renal profile is normal. Surgery is planning angiogram and recheck today to hernandez on the TPA. Patient presented with a embolic occlusion of right ear neck and femoral arterial segments and she seems to be doing well since TPA was started. Patient was reevaluated today on 06/15/20 doing great, patient is now on Xarelto, repeat angiogram showed complete resolution of her thrombosis from the right lower extremity, patient is now transitioned to Xarelto, and I believe the patient could be transferred out of the ICU to a regular medical floor. And once the patient is cleared by vascular to go home, I will clear the patient for discharge planning. CBC is relatively normal hemoglobin is 12.4 WBC count of 7.4, basic metabolic profile is normal and renal profile is normal Patient was reevaluated today on 06/16/23, patient is doing great, relatively asymptomatic, she is an overflow presently in the ICU. Her right lower extremity ischemia has resolved, patient is on Xarelto, she is on room air, and her IV fluid is at 75 mL/h using 0.9 normal saline. Patient is relatively asymptomatic except for some vague discomfort in her right lower extremity and pain but no evidence of ischemic changes on physical examination today. CBC is relatively normal basic metabolic profile is normal renal profile is normal Patient was reevaluated today on 06/17/23, doing well, no active pulmonary issues, the only complaint that the patient has is mostly right leg pain, and she was seen by vascular surgery who felt the pain in the leg is due to swelling and the perfusion. Patient has been cleared by vascular surgery to be discharged home, and I will clear the patient also to go home. Objective - Vital Signs Vital signs: Vital Signs Temp 97.7 F 06/17/23 08:00 Pulse 88 06/17/23 08:00 Resp 17 06/17/23 08:00 BP 123/80 06/17/23 08:00 Pulse Ox 94 L 06/17/23 08:00 FiO2 Intake & Output 06/16/23 06/17/23 06/17/23 18:59 06:59 18:59 Intake Total 450 600 Output Total 900 1000 Balance -450 -400 Weight 99.9 kg 101.3 kg Intake: IV 600 Lactated Ringers 1,000 ml 600 @ 75 mls/hr IV .[id number] [facility] Rx#:[id number] Oral 450 Output: Urine 900 1000 Other: Voiding Method Bedside Commode Bedside Commode Bedside Commode - Exam Physical Exam: Revealed 47-year-old female in no distress on room air Head: Atraumatic, normocephalic. HEENT:[Neck is supple.] [No neck masses.] [No thyromegaly.] [No JVD.] Chest: [Clear throughout, no crackles, no rhonchi, no wheezes.] Cardiac Exam: [Normal S1 and S2, no S3 gallop, no murmur.] Abdomen: [Soft, nontender, no megaly, no rebound, no guarding, normal bowel sounds.] Extremities: [No clubbing, no edema, no cyanosis.] Good distal pulses bilaterally Neurological Exam: [No focal neurologic deficit.] Alert oriented 3 Psychiatric: Normal mood, affect and normal mental status examination Skin: No rashes, scattered areas of ecchymosis in the right leg otherwise negative - Labs CBC & Chem 7: 06/17/23 03:56 06/17/23 03:56 Labs: Abnormal Lab Results - Last 24 Hours (Table) 06/17/23 06/17/23 Range/Units 03:56 03:56 RBC 3.06 L (3.80-5.40) m/uL MCV 114.7 H (80.0-100.0) fL MCH 39.8 H (25.0-35.0) pg RDW 17.4 H (11.5-15.5) % Macrocytosis Marked A Sodium 136 L (137-145) mmol/L BUN <2 L (7-17) mg/dL Calcium 8.2 L (8.4-10.2) mg/dL Assessment and Plan Assessment: Impression: Acute embolic occlusion of right iliac and femoral arterial segments, status post intra-arterial TPA, status post selective right lower extremity angiogram and initiation of TPA through left common femoral arterial access. Postoperative day #5 History of alcoholism Tobacco dependence syndrome generalized anxiety disorder History of claudications and peripheral vessel occlusive disease Recommendation: Should could be discharged home Cleared by vascular surgery And cleared by pulmonary/critical care medicine Time with Patient: Less than 30
--- NOTE | 2023-06-17 12:32 | P.PN ---
Subjective Progress Note Date: 06/17/23 * 47-year-old patient with past medical history significant for alcohol abuse, polysubstance use gastroesophageal reflux disease presents to the emergency department with complaint of severe discomfort and right lower extremity * Patient has been feeling ill for several weeks, she presents to ER few hour pr ior to presentation had increased pain in right leg. 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 Serum chemistry sodium 137 potassium 2.4 carbon dioxide 12 BUNs 8 creatinine 0.86 lactic acid on admission around 9 * Patient was taken to blood bank laboratory technician and underwent ultrasound-guided iliofemoral angiogram selective right lower extremity angiogram and thrombolysis * 06/14: Patient seen and evaluated bedside, patient monitored in ICU, magnesium replaced, continue to monitor on Cipro protocol, plan for TPA scheduled angiogram for today, vascular surgery team following, continue to monitor H&H patient received TPA for right lower extremity ischemia * 06/15: Patient seen and evaluated bedside, on heparin infusion versus surgery planned to transition to xarelto , encourage ambulation, echocardiogram ordered, oral pain regimen for discharge planning * 06/16: Patient seen and evaluated at bedside, patient complains of acute right knee discomfort, x-ray ordered, range of motion limited, follow-up CBC basic metabolic panel obtained * 06/17: Patient seen and evaluated bedside, patient to be discharged home once able to pick medications, patient did not pick Xarelto hence will wait and pharmacy is open potential discharge by tomorrow. X-ray findings reviewed with patient patient ambulated in the room remained stable will need outpatient follow-up with vascular REVIEW OF SYSTEMS: Right leg pain improved, right knee pain musculoskeletal CONSTITUTIONAL: No fever, no malaise, no fatigue. HEENT: No recent visual problems or hearing problems. Denied any sore throat. CARDIOVASCULAR: No chest pain, orthopnea, PND, no palpitations, no syncope. PULMONARY: No shortness of breath, no cough, no hemoptysis. GASTROINTESTINAL: No diarrhea, no nausea, no vomiting, no abdominal pain. NEUROLOGICAL: No headaches, no weakness, no numbness. HEMATOLOGICAL: Denies any bleeding or petechiae. GENITOURINARY: Denies any burning micturition, frequency, or urgency. MUSCULOSKELETAL/RHEUMATOLOGICAL: Right knee pain. ENDOCRINE: Denies any polyuria or polydipsia. PHYSICAL EXAMINATION: GENERAL: The patient is alert and oriented x3, HEENT: Pupils are round and equally reacting to light. EOMI. CARDIOVASCULAR: S1 and S2 present. No murmurs, rubs, or gallops. Right leg pain, diminished pulses right lower extremity, dorsalis pedis and posterior tibial palpable PULMONARY: Chest is clear to auscultation, no wheezing or crackles. ABDOMEN: Soft, nontender, nondistended, normoactive bowel sounds. No palpable organomegaly. MUSCULOSKELETAL: Injured motion limited right knee EXTREMITIES: No cyanosis, clubbing, or pedal edema. NEUROLOGICAL: Gross neurological examination did not reveal any focal deficits. SKIN: No rashes. Objective - Vital Signs Vital signs: Vital Signs Temp 97.7 F 06/17/23 08:00 Pulse 88 06/17/23 08:00 Resp 17 06/17/23 08:00 BP 123/80 06/17/23 08:00 Pulse Ox 94 L 06/17/23 08:00 FiO2 Intake & Output 06/16/23 06/17/23 06/17/23 18:59 06:59 18:59 Intake Total 450 600 Output Total 900 1000 Balance -450 -400 Weight 99.9 kg 101.3 kg Intake: IV 600 Lactated Ringers 1,000 ml 600 @ 75 mls/hr IV .[id number] [facility] Rx#:[id number] Oral 450 Output: Urine 900 1000 Other: Voiding Method Bedside Commode Bedside Commode Bedside Commode - Labs CBC & Chem 7: 06/17/23 03:56 06/17/23 03:56 Labs: Abnormal Lab Results - Last 24 Hours (Table) 06/17/23 06/17/23 Range/Units 03:56 03:56 RBC 3.06 L (3.80-5.40) m/uL MCV 114.7 H (80.0-100.0) fL MCH 39.8 H (25.0-35.0) pg RDW 17.4 H (11.5-15.5) % Macrocytosis Marked A Sodium 136 L (137-145) mmol/L BUN <2 L (7-17) mg/dL Calcium 8.2 L (8.4-10.2) mg/dL Assessment and Plan Assessment: Assessment and plan * Acute limb ischemia right lower extremity involving right iliac and femoral artery segments status post TPA * Polysubstance use/alcohol use disorder * Lactic acidosis secondary to ischemia resolved * Hypokalemia resolved * Hypomagnesemia * Metabolic acidosis resolved * Consultation obtained from vascular surgery/critical care medicine * Continue with neurovascular checks right lower extremity/patient underwent TPA and transferred to ICU, medical management in ICU okay to transfer to general medical floor * Continue patient on fluid resuscitation, anticoagulation with IV heparin, transitioned to xarelto, continue Oxy IR and gabapentin for pain control * In regards to lactic acidosis, follow-up lactate levels ordered continue with resuscitation * In regards to electrolyte abnormality follow-up basic metabolic panel ordered * In regards to alcohol use continue patient on alcohol withdrawal protocol * CODE STATUS is full code
[2023-06-17] MEDS: MAGNESIUM OXIDE 400 MG TAB PO SCH ×2 (13:43→19:48)
[2023-06-18] MEDS: traMADol 50 MG TAB PO PRN ×3 (03:32→15:34)
[2023-06-18] MEDS: RIVAROXABAN 15 MG TAB PO SCH (06:22)
[2023-06-18 08:51] VITALS: PULSE 88
[2023-06-18] MEDS: MAGNESIUM OXIDE 400 MG TAB PO SCH (09:03)
[2023-06-18] MEDS: GABAPENTIN 300 MG CAP PO SCH (09:03)
[2023-06-18] MEDS: THIAMINE 100 MG TAB PO SCH (09:03)
[2023-06-18] MEDS: PANTOPRAZOLE 40 MG/10 ML VIAL IV SCH (09:40)
--- NOTE | 2023-06-18 12:23 | P.PN ---
Subjective Progress Note Date: 06/18/23 This is a 47-year-old female patient was taken to the vascular lab yesterday with an acute limb ischemia involving the right lower extremity. The patient had an angiogram of the iliofemoral artery and the patient underwent elective catheterization and initiated on TPA thrombolysis. On today's evaluation, the patient has improved wants and color the right foot. Pulses dorsalis pedis is obtained by Doppler signal. No pain right lower extremity. The patient is going to be taken to the vascular lab again. This patient has history of smoking, alcohol abuse and she had chronic pain in the right lower extremity/with mobility. She may have underlying medication. The CT of the lower extremity showed arterial occlusion of the junction of the right PROCESS TANK TENDER and SFA has this was seen at the PFA and there is mild diffuse caliber narrowing of the remainder of the SFA but more focused severe stenosis level of the adductor hiatus. Patient also has calcified plaques involving the abdominal aorta. she is currently doing well. she is hemodynamically stable. the patient had the [place] of 11.4, hemoglobin 13.4 and platelet count 181. inr is 1.2 with a pt of 12.5 and a fibrinogen level is up to 93. ptt was 88 earlier. sodium levels of 136. aspirin 3.57 with a creatinine of 0.6 and a serum bicarb level is at 27. urine drug screen is positive for thc and benzodiazepines. Reevaluated today on 06/14/2023, patient remains in the ICU, still receiving intra-arterial TPA, this is being addressed by vascular surgery. Clinically however the patient is doing great, and she has excellent pulses in both lower extremities including dorsalis pedis pulse and posterior tibial pulses. No evidence of ischemic changes in the feet bilaterally. Patient is hemodynamically stable. CBC is basically unremarkable electrolytes are normal renal profile is normal. Surgery is planning angiogram and recheck today to decide on the TPA. Patient presented with a embolic occlusion of right ear neck and femoral arterial segments and she seems to be doing well since TPA was started. Patient was reevaluated today on 06/15/20 doing great, patient is now on Xarelto, repeat angiogram showed complete resolution of her thrombosis from the right lower extremity, patient is now transitioned to Xarelto, and I believe the patient could be transferred out of the ICU to a regular medical floor. And once the patient is cleared by vascular to go home, I will clear the patient for discharge planning. CBC is relatively normal hemoglobin is 12.4 WBC count of 7.4, basic metabolic profile is normal and renal profile is normal Patient was reevaluated today on 06/16/23, patient is doing great, relatively asymptomatic, she is an overflow presently in the ICU. Her right lower extremity ischemia has resolved, patient is on Xarelto, she is on room air, and her IV fluid is at 75 mL/h using 0.9 normal saline. Patient is relatively asymptomatic except for some vague discomfort in her right lower extremity and pain but no evidence of ischemic changes on physical examination today. CBC is relatively normal basic metabolic profile is normal renal profile is normal Patient was reevaluated today on 06/17/23, doing well, no active pulmonary issues, the only complaint that the patient has is mostly right leg pain, and she was seen by vascular surgery who felt the pain in the leg is due to swelling and the perfusion. Patient has been cleared by vascular surgery to be discharged home, and I will clear the patient also to go home. The patient is seen today 06/18/2023 in follow-up on the regular medical floor. She is currently sitting up in bed. Awake and alert in no acute distress. She is maintaining O2 saturations in the 90s on room air. She's been afebrile. Hemodynamically stable. Magnesium level I.6. She remains anticoagulated with Xarelto. She was not discharged yesterday due to not being able warp picker her prescription from the pharmacy. Objective - Vital Signs Vital signs: Vital Signs Temp 97.9 F 06/18/23 06:40 Pulse 88 06/18/23 06:40 Resp 18 06/18/23 06:40 BP 102/68 06/18/23 06:40 Pulse Ox 90 L 06/18/23 06:40 FiO2 Intake & Output 06/17/23 06/18/23 06/18/23 18:59 06:59 18:59 Intake Total 800 Balance 800 Intake: Oral 800 Other: Voiding Method Bedside Commode Bedside Commode # Voids 3 - Exam GENERAL EXAM: Alert, pleasant 47-year-old female, on room air, comfortable in no apparent distress. HEAD: Normocephalic. EYES: Normal reaction of pupils, equal size. NOSE: Clear with pink turbinates. THROAT: No erythema or exudates. NECK: No masses, no JVD. CHEST: No chest wall deformity. LUNGS: Equal air entry with no crackles, wheeze, rhonchi or dullness. CVS: S1 and S2 normal with no audible murmur, regular rhythm. ABDOMEN: No hepatosplenomegaly, normal bowel sounds, no guarding or rigidity. SPINE: No scoliosis or deformity SKIN: No rashes CENTRAL NERVOUS SYSTEM: No focal deficits, tone is normal in all 4 extremities. EXTREMITIES: There is no peripheral edema. No clubbing, no cyanosis. Peripheral pulses are intact. - Labs CBC & Chem 7: 06/17/23 03:56 06/17/23 03:56 Assessment and Plan Assessment: Acute embolic occlusion of right iliac and femoral arterial segments, status post intra-arterial TPA, status post selective right lower extremity angiogram and initiation of TPA through left common femoral arterial access. Postoperative day #6 History of alcoholism Tobacco dependence syndrome Generalized anxiety disorder History of claudications and peripheral vessel occlusive disease Plan: The patient was seen and evaluated Medications reviewed Stable and on room air To be discharged home on Xarelto Planning to pick it up from a pharmacy today Follow up with vascular surgery as scheduled This patient was seen independently by the nurse practitioner I have personally seen and examined the patient, performed the documentation and the assessment and plan as written. Number of minutes spent on the visit: 20.
--- NOTE | 2023-06-18 12:29 | P.DS ---
Providers Date of admission: 06/12/23 14:31 Expected date of discharge: 06/18/23 Attending physician: Melecio Hall MD Consults: 06/12/23 14:30 Consult Physician Stat Consulting Provider: Rosie Higginbotham Consult Reason/Comments: Arterial occlusion Do you want consulting provider notified?: Already Contacted 06/12/23 14:31 Consult Physician Stat Consulting Provider: Raji Hernandez Consult Reason/Comments: critical care Do you want consulting provider notified?: Yes Primary care physician: Stated None Hospital Course: * 47-year-old patient with past medical history significant for alcohol abuse, polysubstance use gastroesophageal reflux disease presents to the emergency department with complaint of severe discomfort and right lower extremity * Patient has been feeling ill for several weeks, she presents to ER few hour prior to presentation had increased pain in right leg. On evaluation in ER right lower extremity was noted to be cold * Further workup included a stat CT angiography lower extremity which showed arterial occlusion of the right MIMEOGRAPHER and SFA loss spanning 6 cm>> patient started on IV heparin, vascular surgery was consulted * Blood work obtained in ER included CBC which were WBC of 9.2 hemoglobin 14.3 platelet count of 215. Serum chemistry sodium 137 potassium 2.4 carbon dioxide 12 BUNs 8 creatinine 0.86 lactic acid on admission around 9 * Patient was taken to optical lab technician and underwent ultrasound-guided iliofemoral angiogram selective right lower extremity angiogram and thrombolysis * 06/14: Patient seen and evaluated bedside, patient monitored in ICU, magnesium replaced, continue to monitor on Cipro protocol, plan for TPA scheduled angiogram for today, vascular surgery team following, continue to monitor H&H patient received TPA for right lower extremity ischemia * 06/15: Patient seen and evaluated bedside, on heparin infusion versus surgery planned to transition to xarelto , encourage ambulation, echocardiogram ordered, oral pain regimen for discharge planning * 06/16: Patient seen and evaluated at bedside, patient complains of acute right knee discomfort, x-ray ordered, range of motion limited, follow-up CBC basic metabolic panel obtained * 06/17: Patient seen and evaluated bedside, patient to be discharged home once able to pick medications, patient did not pick Xarelto hence will wait and pharmacy is open potential discharge by tomorrow. X-ray findings reviewed with patient patient ambulated in the room remained stable will need outpatient follow-up with vascular * 06/18: Patient seen and evaluated bedside, patient does complain of intermittent leg discomfort however intact pulses dorsalis pedis as well as posterior tibial, patient ambulated in the room, seen the physical therapy discharge home with home care walker provided as well. Patient instructed to continue taking Xarelto however to skip first 2 days since today is day 3 of this medication patient has clear understanding. Patient is requested to come back to the emergency if her leg pain gets worse. Pain medication sent to pharmacy. Patient instructed not to miss anticoagulated , patient started on Lipitor as well REVIEW OF SYSTEMS: Right leg pain improved, right knee pain improved CONSTITUTIONAL: No fever, no malaise, no fatigue. HEENT: No recent visual problems or hearing problems. Denied any sore throat. CARDIOVASCULAR: No chest pain, orthopnea, PND, no palpitations, no syncope. PULMONARY: No shortness of breath, no cough, no hemoptysis. GASTROINTESTINAL: No diarrhea, no nausea, no vomiting, no abdominal pain. NEUROLOGICAL: No headaches, no weakness, no numbness. HEMATOLOGICAL: Denies any bleeding or petechiae. GENITOURINARY: Denies any burning micturition, frequency, or urgency. MUSCULOSKELETAL/RHEUMATOLOGICAL: Right knee pain. ENDOCRINE: Denies any polyuria or polydipsia. PHYSICAL EXAMINATION: GENERAL: The patient is alert and oriented x3, HEENT: Pupils are round and equally reacting to light. EOMI. CARDIOVASCULAR: S1 and S2 present. No murmurs, rubs, or gallops. Right leg pain, diminished pulses right lower extremity, dorsalis pedis and posterior tibial palpable PULMONARY: Chest is clear to auscultation, no wheezing or crackles. ABDOMEN: Soft, nontender, nondistended, normoactive bowel sounds. No palpable organomegaly. MUSCULOSKELETAL: Injured motion limited right knee EXTREMITIES: No cyanosis, clubbing, or pedal edema. NEUROLOGICAL: Gross neurological examination did not reveal any focal deficits. SKIN: No rashes. Assessment: Assessment and plan * Acute limb ischemia right lower extremity involving right iliac and femoral artery segments status post TPA * Polysubstance use/alcohol use disorder * Lactic acidosis secondary to ischemia resolved * Hypokalemia resolved * Hypomagnesemia * Metabolic acidosis resolved * Consultation obtained from vascular surgery/critical care medicine, transferred to general medical floor and cleared for discharge * Continue with neurovascular checks right lower extremity/patient underwent TPA and transferred to ICU, medical management in ICU okay to transfer to general medical floor * Continue patient on fluid resuscitation, anticoagulation with IV heparin, transitioned to xarelto, and given prescription for oxycodone IR and Ultram * In regards to lactic acidosis, follow-up lactate levels ordered continue with resuscitation * In regards to electrolyte abnormality follow-up basic metabolic panel ordered * In regards to alcohol use continue patient on alcohol withdrawal protocol patient not withdrawing anymore discharge home counseling provided to abstinence from alcohol Patient Condition at Discharge: Good Plan - Discharge Summary Discharge Rx Participant: Yes New Discharge Prescriptions: New Rivaroxaban [Xarelto Starter Pack] 0 mg PO DIRECTED 30 Days #1 packet Magnesium Oxide [Mag-Ox] 400 mg PO BID 5 Days #10 tab oxyCODONE HCL [OxyIR] 5 mg PO Q6HR PRN 3 Days #12 tab PRN Reason: Pain traMADol HCl [Ultram] 50 mg PO Q6H PRN 3 Days #12 tab PRN Reason: Moderate Pain (Scale 4 To 6) Discharge Medication List Rivaroxaban [Xarelto Starter Pack] 0 mg PO DIRECTED 30 Days #1 packet [Rx] Atorvastatin [Lipitor] 20 mg PO HS 30 Days #30 tablet 06/18/23 [Rx] Magnesium Oxide [Mag-Ox] 400 mg PO BID 5 Days #10 tab 06/18/23 [Rx] oxyCODONE HCL [OxyIR] 5 mg PO Q6HR PRN 3 Days #12 tab 06/18/23 [Rx] traMADol HCl [Ultram] 50 mg PO Q6H PRN 3 Days #12 tab 06/18/23 [Rx] Follow up Appointment(s)/Referral(s): Rosie Higginbotham DO [STAFF PHYSICIAN] - 2 Weeks None,Stated [Primary Care Provider] - 1-2 days Discharge Disposition: HOME SELF-CARE
[2023-06-18] MEDS: LACTATED RINGERS 1,000 ML IV SCH (13:52)
[2023-06-18 15:46] VITALS: BP 111/74; RESP 19; TEMP 98.3
--- NOTE | 2023-06-21 07:53 | IR ---
EXAMINATION TYPE: IR angio abdominal w runoff DATE OF EXAM: 06/12/2023 CLINICAL HISTORY: Right leg pain TECHNIQUE: Fluoroscopy. COMPARISON: None. FINDINGS: Fluoroscopic guidance was provided during procedure performed by Dr. Higginbotham. A total of 4. 3 minutes of fluoroscopic time was utilized during the procedure and 205 spot images was acquired. Total DAP = 27.0 Gy x cm2. IMPRESSION: As Above.
--- NOTE | 2023-06-21 07:54 | IR ---
EXAMINATION TYPE: IR angio lower extremity BI DATE OF EXAM: 06/13/2023 CLINICAL HISTORY: Right leg pain. TECHNIQUE: Fluoroscopy. COMPARISON: None. FINDINGS: Fluoroscopic guidance was provided during procedure performed by Dr. Higginbotham. A total of 7. 0 minutes of fluoroscopic time was utilized during the procedure and 219 spot images was acquired. TOTAL DAP = 17.4 Gy x cm2. IMPRESSION: As Above.
--- NOTE | 2023-06-21 07:55 | IR ---
EXAMINATION TYPE: IR transcath infusion therapy DATE OF EXAM: 06/14/2023 CLINICAL HISTORY: TPA check right leg. TECHNIQUE: Fluoroscopy. COMPARISON: None. FINDINGS: Fluoroscopic guidance was provided during vascular procedure performed by Dr. Clayton. A total of 7.2 minutes of fluoroscopic time was utilized during the procedure and 148 spot images was a cquired. TOTAL DAP = 107.5 mGy IMPRESSION: As Above.
== END 2023-06-18 17:50 | disposition home or self-care (01) | DRG 197 ==
LOC: EC 11:37 → 2SICU 14:31 → 4SSUR 06-17 13:55
PROVIDERS: ADMIT Internal Medicine; ATTEND Internal Medicine
PROC: HZ2ZZZZ Detoxification Services for Substance Abuse Treatment (ICD-10-PCS; 2023-06-12 15:08)
PROC: 0JW Subcutaneous Tissue and Fascia, Revision (ICD-10-PCS; 2023-06-13)
PROC: B41F1ZZ Fluoroscopy of Right Lower Extremity Arteries using Low Osmolar Contrast (ICD-10-PCS; 2023-06-13)
PROC: B41D1ZZ Fluoroscopy of Aorta and Bilateral Lower Extremity Arteries using Low Osmolar Contrast (ICD-10-PCS; 2023-06-14)
PROC: B4101ZZ Fluoroscopy of Abdominal Aorta using Low Osmolar Contrast (ICD-10-PCS; 2023-06-14)
PROC: B41F1ZZ Fluoroscopy of Right Lower Extremity Arteries using Low Osmolar Contrast (ICD-10-PCS; 2023-06-14)
PROC: B41C1ZZ Fluoroscopy of Pelvic Arteries using Low Osmolar Contrast (ICD-10-PCS; 2023-06-14)
PROC: 04HN33Z Insertion of Infusion Device into Left Popliteal Artery, Percutaneous Approach (ICD-10-PCS; 2023-06-14)
PROC: 3E05317 Introduction of Other Thrombolytic into Peripheral Artery, Percutaneous Approach (ICD-10-PCS; principal; 2023-06-14 14:55)
DX: I75.021 Atheroembolism of right lower extremity (principal); I70.221 Atherosclerosis of native arteries of extremities with rest pain, right leg; E87.6 Hypokalemia; E83.42 Hypomagnesemia; F31.9 Bipolar disorder, unspecified; F41.9 Anxiety disorder, unspecified; I10 Essential (primary) hypertension; E87.20 Acidosis, unspecified; F19.90 Other psychoactive substance use, unspecified, uncomplicated; K21.9 Gastro-esophageal reflux disease without esophagitis; F10.239 Alcohol dependence with withdrawal, unspecified; F41.1 Generalized anxiety disorder; M19.90 Unspecified osteoarthritis, unspecified site; I08.1 Rheumatic disorders of both mitral and tricuspid valves; G89.29 Other chronic pain; I27.20 Pulmonary hypertension, unspecified; Z87.828 Personal history of other (healed) physical injury and trauma; E66.01 Morbid (severe) obesity due to excess calories; Z68.41 Body mass index [BMI] 40.0-44.9, adult; Z79.01 Long term (current) use of anticoagulants; Z87.19 Personal history of other diseases of the digestive system
CPT/HCPCS: 36248; 36415; 37211; 37213; 37214; 75710; 76937; 80048; 80053; 80306; 80320; 83605; 83735; 84100; 85025; 85027; 85384; 85610; 85730; 93005; 93306; 96361; 96365; 96375; 96376; 99291

== ENCOUNTER 2023-06-24 09:03 | Emergency (ER) | payer OTHER ==
[2023-06-24 09:38] VITALS: RESP 17; TEMP 97.6
[2023-06-24 09:54] LABS: Anisocytosis Slight; Basophils % (A) 0 %; Eosinophils # (A) 0.2 k/uL (0-0.7); Eosinophils % (A) 2 %; Lymphocytes # (A) 1.7 k/uL (1.0-4.8); Lymphocytes % (A) 20 %; MCH 36.9 pg (25.0-35.0); MCHC 32.5 g/dL (31.0-37.0); MCV 113.4 fL (80.0-100.0); Macrocytosis Marked; Mean Platelet Volume 7.5; Monocytes # (A) 0.4 k/uL (0-1.0); Monocytes % (A) 4 %; Neutrophils % (A) 71 %; RBC 4.14 m/uL (3.80-5.40); RDW 17.5 % (11.5-15.5); WBC 8.4 k/uL (3.8-10.6)
[2023-06-24 10:00] LABS: ALT 13 U/L (4-34); AST 26 U/L (14-36); African American GFR (CKD) >90 (>60 ml/min/1.73 sqM); Albumin 3.7 g/dL (3.5-5.0); Alkaline Phosphatase 101 U/L (38-126); Blood Urea Nitrogen 8 mg/dL (7-17); Calcium 9.3 mg/dL (8.4-10.2); Carbon Dioxide 17 mmol/L (22-30); Glucose 87 mg/dL (74-99); Non-African American GFR(CKD) 84 (>60 ml/min/1.73 sqM); Potassium 4.4 mmol/L (3.5-5.1); Sodium 138 mmol/L (137-145); Total Bilirubin 0.7 mg/dL (0.2-1.3); Total Protein 7.5 g/dL (6.3-8.2)
[2023-06-24 10:05] LABS: INR 1.1 (<1.2); Partial Thromboplastin Time 26.7 sec (22.0-30.0); Prothrombin Time 11.9 sec (10.0-12.5)
--- NOTE | 2023-06-24 10:16 | XR ---
EXAMINATION TYPE: XR chest 2V DATE OF EXAM: 06/24/2023 COMPARISON: NONE HISTORY: Chest pain TECHNIQUE: Frontal and lateral views of the chest are obtained. FINDINGS: There is no focal air space opacity. No evidence for pneumothorax. No pleural effusion. The cardiac silhouette size is within normal limits. The osseous structures are grossly intact. IMPRESSION: 1. No acute cardiopulmonary process.
[2023-06-24 10:18] LABS: HGB 15.3 gm/dL (11.4-16.0); Platelet Count 530 k/uL (150-450)
[2023-06-24] MEDS ORDERED: MORPHINE SULFATE 4 MG/ML SYRINGE IVP STA ×2 (10:19→13:13)
[2023-06-24 10:24] LABS: Anion Gap 17 mmol/L; Chloride 104 mmol/L (98-107)
[2023-06-24] MEDS ORDERED: RX INFO: IV CONTRAST WAS GIVEN 1 EACH MISC MISCELLANE PRN (10:37)
--- NOTE | 2023-06-24 11:07 | ED ---
General Adult HPI - General Chief complaint: Recheck/Abnormal Lab/Rx Stated complaint: right leg pain and numbness Time Seen by Provider: 06/24/23 09:15 Source: patient, EMS, old records reviewed Mode of arrival: EMS - History of Present Illness Initial comments: 47 year old female with pmh of etoh who presents for rle pain. Patient recently had arterial occlusion with catheter directed treatment. states that her pain was tolerable when she left the hospital however the pain returned 4 days ago and feels similar. She has been taking her xarelto without missed doses. denies trauma. no fevers. no swelling. pain extends over dorsal medial ankle and up to mid femur. - Related Data Home Medications Medication Instructions Recorded Confirmed Rivaroxaban [Xarelto Starter Pack] See Taper PO DIRECTED 06/24/23 06/24/23 Previous Rx's Medication Instructions Recorded Atorvastatin [Lipitor] 20 mg PO HS 30 Days #30 tablet 06/18/23 Magnesium Oxide [Mag-Ox] 400 mg PO BID 5 Days #10 tab 06/18/23 Allergies Allergy/AdvReac Type Severity Reaction Status Date / Time No Known Allergies Allergy Verified 06/24/23 10:43 Review of Systems ROS Statement: Those systems with pertinent positive or pertinent negative responses have been documented in the HPI. ROS Other: All systems not noted in ROS Statement are negative. Past Medical History Past Medical History: GERD/Reflux, GI Bleed Additional Past Medical History / Comment(s): PAT HX OF MULTIPLE HEAD TRAUMA, ULCERS, ANEMIA, + HEMOCCULT, FREQ BRONCHITIS AND SINUS AND EAR INFECTIONS, ALSO HAS HAD BLOOD IN STOOL, VERTIGO, Chronic back pain, Migraine, bipolar, anxiety, depression, History of Any Multi-Drug Resistant Organisms: None Reported Past Surgical History: Section, Orthopedic Surgery Additional Past Surgical History / Comment(s): C-SEC X 2. COLONOSCOPY/EGD. RT Carpal Tunnel Surgery Past Anesthesia/Blood Transfusion Reactions: No Reported Reaction Past Psychological History: Anxiety, Depression Smoking Status: Current every day smoker Past Alcohol Use History: None Reported, Daily, Heavy Past Drug Use History: None Reported - Past Family History Mother Family Medical History: No Reported History General Exam General appearance: alert, in no apparent distress Head exam: Present: atraumatic, normocephalic, normal inspection Eye exam: Present: normal appearance, PERRL, EOMI. Absent: scleral icterus, conjunctival injection, periorbital swelling ENT exam: Present: normal exam, mucous membranes moist Neck exam: Present: normal inspection. Absent: tenderness, meningismus, lymphadenopathy Respiratory exam: Present: normal lung sounds bilaterally. Absent: respiratory distress, wheezes, rales, rhonchi, stridor Cardiovascular Exam: Present: regular rate, normal rhythm, normal heart sounds. Absent: systolic murmur, diastolic murmur, rubs, gallop, clicks GI/Abdominal exam: Present: soft, normal bowel sounds. Absent: distended, tenderness, guarding, rebound, rigid Extremities exam: Present: normal inspection, full ROM, normal capillary refill, other (palpable dp bilaterally. bilateral pt found by doppler). Absent: tenderness, pedal edema, joint swelling, calf tenderness Back exam: Present: normal inspection Neurological exam: Present: alert, oriented X3, CN II-XII intact Psychiatric exam: Present: normal affect, normal mood Skin exam: Present: warm, dry, intact, normal color. Absent: rash Course Vital Signs 06/24/23 06/24/23 06/24/23 09:11 11:00 13:02 Temperature 97.6 F Pulse Rate 97 76 76 Respiratory 17 17 17 Rate Blood Pressure 115/70 107/83 94/59 O2 Sat by Pulse 99 98 97 Oximetry Medical Decision Making - Medical Decision Making Was pt. sent in by a medical professional or institution ([facility], TOOL [employer]JUSTER, urgent care, hospital, or senior living...) When possible be specific @ -No Did you speak to anyone other than the patient for history (EMS, parent, family, police, friend...)? What history was obtained from this source @ -EMS Did you review nursing and triage notes (agree or disagree)? Why? @ -I reviewed and agree with nursing and triage notes Were old charts reviewed (outside hosp., previous admission, EMS record, old EKG, old radiological studies, urgent care reports/EKG's, senior living records)? Report findings @ -old charts were reviewed - discharge summary from recent hospitalization Differential Diagnosis (chest pain, altered mental status, abdominal pain women, abdominal pain men, vaginal bleeding, weakness, fever, dyspnea, syncope, headache, dizziness, GI bleed, back pain, seizure, CVA, palpatations, mental health, musculoskeletal)? @ -arterial occlusion, dvt, cellulitis, tendonitis EKG interpreted by me (3pts min.). @ -Yes and demonstrates sinus rhythm rate of 93. AR interval 135. QRS 78. QTC of 407. No acute ST segment elevations. Inverted T waves in V1 through V3 X-rays interpreted by me (1pt min.). @ -None done CT interpreted by me (1pt min.). @ -yes and demonstrates no arterial occlusion U/S interpreted by me (1pt. min.). @ -None done What testing was considered but not performed or refused? (CT, X-rays, U/S, labs)? Why? @ -None What meds were considered but not given or refused? Why? @ -None Did you discuss the management of the patient with other professionals (professionals i.e. , PA, TOOL ADJUSTER, lab, RT, psych nurse, social work program coordinator, computer scientist, teacher, staff air tactical officer, nurse outreach case manager)? Give summary @ -dr moore Was smoking cessation discussed for >3mins.? @ -No Was critical care preformed (if so, how long)? @ -No Were there social determinants of health that impacted care today? How? (Homelessness, low income, unemployed, alcoholism, drug addiction, transportation, low edu. Level, literacy, decrease access to med. care, halfway, rehab)? @ -No Was there de-escalation of care discussed even if they declined (Discuss DNR or withdrawal of care, Hospice)? DNR status @ -No What co-morbidities impacted this encounter? (DM, HTN, Smoking, COPD, CAD, Cancer, CVA, ARF, Chemo, Hep., AIDS, mental health diagnosis, sleep apnea, morbid obesity)? @ -tobacco use, etoh abuse Was patient admitted / discharged? Hospital course, mention meds given and route, prescriptions, significant lab abnormalities, going to OR and other pertinent info. @ -discharged. Ct negative for occlusion, patient has palpable pulses. no signs of ischemia. spoke with dr. moore. Patient will be discharged home and asked to follow up with dr moore and orthopedics Undiagnosed new problem with uncertain prognosis? @ -No Drug Therapy requiring intensive monitoring for toxicity (Heparin, Nitro, Insulin, Cardizem)? @ -No Were any procedures done? @ -No Diagnosis/symptom? @ -acute exacerbation of right leg pain, recent arterial occlusion Acute, or Chronic, or Acute on Chronic? @ -acute Uncomplicated (without systemic symptoms) or Complicated (systemic symptoms)? @ -complicated Side effects of treatment? @ -No Exacerbation, Progression, or Severe Exacerbation? @ -No Poses a threat to life or bodily function? How? (Chest pain, [place], [place], pneumonia, PE, COPD, DKA, ARF, appy, cholecystitis, CVA, Diverticulitis, Homicidal, Suicidal, threat to staff... and all critical care pts) @ -No - Lab Data Result diagrams: 06/24/23 09:34 06/24/23 09:34 Lab Results 06/24/23 06/24/23 06/24/23 Range/Units 09:34 09:34 09:34 WBC 8.4 (3.8-10.6) k/uL RBC 4.14 (3.80-5.40) m/uL Hgb 15.3 D (11.4-16.0) gm/dL Hct 47.0 H (34.0-46.0) % MCV 113.4 H (80.0-100.0) fL MCH 36.9 H (25.0-35.0) pg MCHC 32.5 (31.0-37.0) g/dL RDW 17.5 H (11.5-15.5) % Plt Count 530 H D (150-450) k/uL MPV 7.5 Neutrophils % 71 % Lymphocytes % 20 % Monocytes % 4 % Eosinophils % 2 % Basophils % 0 % Neutrophils # 6.0 (1.3-7.7) k/uL Lymphocytes # 1.7 (1.0-4.8) k/uL Monocytes # 0.4 (0-1.0) k/uL Eosinophils # 0.2 (0-0.7) k/uL Basophils # 0.0 (0-0.2) k/uL Anisocytosis Slight Macrocytosis Marked A PT 11.9 (10.0-12.5) sec INR 1.1 (<1.2) APTT 26.7 (22.0-30.0) sec Sodium 138 (137-145) mmol/L Potassium 4.4 (3.5-5.1) mmol/L Chloride 104 (98-107) mmol/L Carbon Dioxide 17 L (22-30) mmol/L Anion Gap 17 mmol/L BUN 8 (7-17) mg/dL Creatinine 0.83 (0.52-1.04) mg/dL Est GFR (CKD-EPI)AfAm >90 (>60 ml/min/1.73 sqM) Est GFR (CKD-EPI)NonAf 84 (>60 ml/min/1.73 sqM) Glucose 87 (74-99) mg/dL Plasma Lactic Acid Manuel (0.7-2.0) mmol/L Calcium 9.3 (8.4-10.2) mg/dL Total Bilirubin 0.7 (0.2-1.3) mg/dL AST 26 (14-36) U/L ALT 13 (4-34) U/L Alkaline Phosphatase 101 (38-126) U/L Troponin I (0.000-0.034) ng/mL Total Protein 7.5 (6.3-8.2) g/dL Albumin 3.7 (3.5-5.0) g/dL 06/24/23 06/24/23 Range/Units 09:34 09:34 WBC (3.8-10.6) k/uL RBC (3.80-5.40) m/uL Hgb (11.4-16.0) gm/dL Hct (34.0-46.0) % MCV (80.0-100.0) fL MCH (25.0-35.0) pg MCHC (31.0-37.0) g/dL RDW (11.5-15.5) % Plt Count (150-450) k/uL MPV Neutrophils % % Lymphocytes % % Monocytes % % Eosinophils % % Basophils % % Neutrophils # (1.3-7.7) k/uL Lymphocytes # (1.0-4.8) k/uL Monocytes # (0-1.0) k/uL Eosinophils # (0-0.7) k/uL Basophils # (0-0.2) k/uL Anisocytosis Macrocytosis PT (10.0-12.5) sec INR (<1.2) APTT (22.0-30.0) sec Sodium (137-145) mmol/L Potassium (3.5-5.1) mmol/L Chloride (98-107) mmol/L Carbon Dioxide (22-30) mmol/L Anion Gap mmol/L BUN (7-17) mg/dL Creatinine (0.52-1.04) mg/dL Est GFR (CKD-EPI)AfAm (>60 ml/min/1.73 sqM) Est GFR (CKD-EPI)NonAf (>60 ml/min/1.73 sqM) Glucose (74-99) mg/dL Plasma Lactic Acid Manuel 1.1 (0.7-2.0) mmol/L Calcium (8.4-10.2) mg/dL Total Bilirubin (0.2-1.3) mg/dL AST (14-36) U/L ALT (4-34) U/L Alkaline Phosphatase (38-126) U/L Troponin I <0.012 (0.000-0.034) ng/mL Total Protein (6.3-8.2) g/dL Albumin (3.5-5.0) g/dL Disposition Clinical Impression: Right leg pain Disposition: HOME SELF-CARE Condition: Stable Instructions (If sedation given, give patient instructions): Leg Pain (ED) Additional Instructions: Please follow-up with orthopedic surgeon for further workup of your symptoms. He need taking all your medications as directed. Return for any new or worsening symptoms Is patient prescribed a controlled substance at d/c from ED?: No Referrals: Gustavo Stallings DO [Doctor of Osteopathic Medicine] - 1-2 days None,Stated [Primary Care Provider] - 1-2 days Time of Disposition: 12:52
[2023-06-24 12:16] VITALS: PULSE 76
--- NOTE | 2023-06-24 12:22 | CT ---
EXAMINATION TYPE: CT angio lower extremity RT DATE OF EXAM: 06/24/2023 11:51 AM COMPARISON: None available. HISTORY: Pain, recent arterial occlusion CT DLP: 1348 mGycm Automated exposure control for dose reduction was used. TECHNIQUE: Performed without and with IV Contrast, patient injected with 100 ml mL of Isovue 370. . FINDINGS: The visualized portions of the lower abdomen and pelvis appear unremarkable. The common iliac, internal iliac, external iliac, common femoral, deep femoral, superficial femoral, popliteal, anterior tibial, posterior tibial and peroneal arteries appear patent to the level of the ankle. The peroneal artery is somewhat diminutive and difficult to evaluate around the region of the ankle. No large clot is seen within the vasculature. There are no acute osseous abnormalities. IMPRESSION: 1. NO DEFINITIVE ARTERIAL OCCLUSIONS AT THIS TIME. 2. NO ACUTE FINDINGS OTHERWISE SEEN.
[2023-06-24 13:25] VITALS: BP 94/59
== END 2023-06-24 13:21 | disposition home or self-care (01) ==
LOC: EC 09:03
DX: M79.604 Pain in right leg (principal); F17.200 Nicotine dependence, unspecified, uncomplicated; Z86.59 Personal history of other mental and behavioral disorders
CPT/HCPCS: 36415; 93005; 80053; 83605; 84484; 85025; 85610; 85730; 71046; 73706; 99285; 96374; 96376; J2270; Q9967

== ENCOUNTER → 2023-08-16 | Outpatient (CLI) | payer OTHER ==
--- NOTE | 2023-08-18 09:09 | MM ---
Reason for Exam: Screening (asymptomatic). Last mammogram was performed 7 year(s) and 5 month(s) ago. Patient History: Menarche at age 12. First Full-Term at age 22. Postmenopausal. Mother had ovarian cancer, age 40. Risk Values: Eliza 5 year model risk: 0.8%. NCI Lifetime model risk: 8.3%. Prior Study Comparison: 03/10/2016 Bilateral Screening Mammogram, Unknown. Tissue Density: The breast tissue is almost entirely fat. Findings: Analyzed By CAD. There is no suspicious group of microcalcifications or new suspicious mass. Overall Assessment: Negative, BI-RAD 1 Management: Screening Mammogram of both breasts in [address] [facility] will attempt to contact patient to return for supplemental views and ultrasound if indicated. Patient should continue monthly self-breast exams. A clinical breast exam by your physician is recommended on an annual basis. This exam should not preclude additional follow-up of suspicious palpable abnormalities. Note on Eliza scores and lifetime risk: 1. A Eliza score greater than 3% is considered moderate risk. If this is the case, consider specialist referral to assess eligibility for a risk reducing agent. 2. If overall lifetime risk for the development of breast cancer is 20% or higher, the patient may qualify for future screening with alternating mammogram and breast MRI. Electronically signed and approved by: Mike Up DO
== END | disposition home or self-care (01) ==
LOC: RADMAMWWP 13:47
PROVIDERS: ATTEND Family Medicine
DX: Z12.31 Encounter for screening mammogram for malignant neoplasm of breast (principal); Z78.0 Asymptomatic menopausal state
CPT/HCPCS: 77067

== ENCOUNTER 2023-10-01 15:34 | Emergency (ER) | payer OTHER ==
--- NOTE | 2023-10-01 16:06 | ED ---
SOB HPI - General Chief Complaint: Shortness of Breath Stated Complaint: Dizziness-sent by Drs Time Seen by Provider: 10/01/23 15:45 Source: patient, RN notes reviewed Mode of arrival: ambulatory Limitations: no limitations - History of Present Illness Initial Comments: This is a 47-year-old female who presents to the emergency department for shortness of breath, weakness, and chest pain. States that for the last week she has felt short of breath and weak with occasional chest pain. Also feels like she can't take a full breath. She was supposed to have an EGD procedure 4 days ago, but states that when they tried to sedate her, her oxygen dropped and the procedure had to be terminated. She followed up with her primary care provider today, who advised she come into the emergency department for a CT of her chest to rule out a pulmonary embolus. In May 2023 she was treated for an arterial occlusion in the right lower extremity. She is still on Xarelto. MD Complaint: shortness of breath, cough - Related Data Home Medications Medication Instructions Recorded Confirmed Rivaroxaban [Xarelto Starter Pack] See Taper PO DIRECTED 06/24/23 06/24/23 Previous Rx's Medication Instructions Recorded Atorvastatin [Lipitor] 20 mg PO HS 30 Days #30 tablet 06/18/23 Magnesium Oxide [Mag-Ox] 400 mg PO BID 5 Days #10 tab 06/18/23 Albuterol Sulfate [Albuterol 1 - 2 puff PO Q4-6H PRN #8.5 gm 10/01/23 Sulfate Hfa] Azithromycin [Zithromax] 250 mg PO DIRECTED 5 Days #6 tab 10/01/23 predniSONE 50 mg PO DAILY 5 Days #5 tab 10/01/23 Allergies Allergy/AdvReac Type Severity Reaction Status Date / Time No Known Allergies Allergy Verified 06/24/23 10:43 Review of Systems ROS Statement: Those systems with pertinent positive or pertinent negative responses have been documented in the HPI. ROS Other: All systems not noted in ROS Statement are negative. Past Medical History Past Medical History: COPD, Deep Vein Thrombosis (DVT), GERD/Reflux, GI Bleed Additional Past Medical History / Comment(s): PAT HX OF MULTIPLE HEAD TRAUMA, ULCERS, ANEMIA, + HEMOCCULT, FREQ BRONCHITIS AND SINUS AND EAR INFECTIONS, ALSO HAS HAD BLOOD IN STOOL, VERTIGO, Chronic back pain, Migraine, bipolar, anxiety, depression, History of Any Multi-Drug Resistant Organisms: None Reported Past Surgical History: Section, Orthopedic Surgery Additional Past Surgical History / Comment(s): C-SEC X 2. COLONOSCOPY/EGD. RT Carpal Tunnel Surgery Past Anesthesia/Blood Transfusion Reactions: No Reported Reaction Past Psychological History: Anxiety, Bipolar, Depression Smoking Status: Current every day smoker Past Alcohol Use History: None Reported, Daily, Heavy Past Drug Use History: None Reported - Past Family History Mother Family Medical History: No Reported History General Exam Limitations: no limitations General appearance: alert, in no apparent distress Head exam: Present: atraumatic, normocephalic, normal inspection Respiratory exam: Present: normal lung sounds bilaterally. Absent: respiratory distress, wheezes, rales, rhonchi, stridor Cardiovascular Exam: Present: regular rate, normal rhythm, normal heart sounds. Absent: systolic murmur, diastolic murmur, rubs, gallop, clicks Neurological exam: Present: alert, oriented X3, CN II-XII intact Psychiatric exam: Present: normal affect, normal mood Skin exam: Present: warm, dry, intact, normal color. Absent: rash Course Vital Signs 10/01/23 10/01/23 10/01/23 15:41 15:56 16:28 Temperature 98.0 F Pulse Rate 106 H 96 Respiratory 18 18 18 Rate Blood Pressure 116/79 131/87 O2 Sat by Pulse 98 93 L Oximetry 10/01/23 10/01/23 10/01/23 17:00 17:41 17:50 Temperature Pulse Rate 82 78 90 Respiratory 18 Rate Blood Pressure 100/71 O2 Sat by Pulse 94 L Oximetry 10/01/23 10/01/23 18:00 19:16 Temperature 97.8 F Pulse Rate 91 68 Respiratory 18 87 H Rate Blood Pressure 103/77 116/58 O2 Sat by Pulse 92 L 96 Oximetry Medical Decision Making - Medical Decision Making This is a 47 year old female who presents to the emergency department for shortness of breath. Was pt. sent in by a medical professional or institution? @ -Her PCP Did you speak to anyone other than the patient for history? @ -No Did you review nursing and triage notes? @ -I disagree with the aspect about DVTs, patient had an arterial occlusion. Were old charts reviewed? @ -No Differential Diagnosis? @ -Differential Dyspnea: Coronary syndrome, arrhythmia, tamponade, asthma, COPD, pulmonary embolism, pneumonia, pneumothorax, pulmonary effusion, anaphylaxis, diabetic ketoacidosis, flailed chest, pulmonary contusion, diaphragmatic rupture, anemia, neuromusc ular, this is not meant to be an all-inclusive list. EKG interpreted by me (3pts min.)? @ -EKG interpreted by me demonstrating the following: Sinus rhythm. Ventricular rate 89 bpm, MO interval 137 ms, QRS duration 83 ms, QTc 409 ms. X-rays interpreted by me (1pt min.)? @ -Not obtained CT interpreted by me (1pt min.)? @ -CTA of the chest obtained. My interpretation identifies no evidence of a pulmonary embolus. U/S interpreted by me (1pt. min.)? @ -Not obtained What testing was considered but not performed? (CT, X-rays, U/S, labs)? Why? @ -None What meds were considered but not given? Why? @ -None Did you discuss the management of the patient with other professionals? @ -No Did you reconcile home meds? @ -No Was smoking cessation discussed for >3mins.? @ -I discussed smoking cessation for greater than 3 minutes. The risk of smoking were discussed with the patient including but not limited to risks of cancer, stroke, coronary artery disease and COPD. Also discussed with patient were multiple methods of quitting smoking. Lastly we discussed the financial cost of smoking. Was critical care preformed (if so, how long)? @ -No Were there social determinants of health that impacted care today? How? (Homelessness, low income, unemployed, alcoholism, drug addiction, transportation, low edu. Level, literacy, decrease access to med. care, half-way, rehab)? @ -No Was there de-escalation of care discussed even if they declined? (Discuss DNR or withdrawal of care, Hospice)? @ -No What co-morbidities impacted this encounter? (DM, HTN, Smoking, COPD, CAD, Cancer, CVA, Hep., AIDS, mental health diagnosis, sleep apnea, morbid obesity)? @ -Smoking, hx of arterial occlusion Was patient admitted / discharged? @ -Discharged. Lab work unremarkable. COVID, influenza, and RSV testing negative. CTA of the chest demonstrates no evidence of a pulmonary embolus. She does have mild diffuse bronchial wall thickening suggestive of bronchitis or chronic asthma. Patient reports being diagnosed with both COPD and asthma, but states that she has not needed treatment for them recently. She was treated for asthma several years ago. She was given a DuoNeb breathing treatment in the emergency department, which she did find beneficial. Will treat patient like a COPD exacerbation. Rx for azithromycin, prednisone, and albuterol inhaler provided with dosing instructions reviewed. Patient discharged home in stable condition and will follow-up with her primary care provider. Undiagnosed new problem with uncertain prognosis? @ -None Drug Therapy requiring intensive monitoring for toxicity (Heparin, Nitro, Insulin, Cardizem)? @ -None Were any procedures done? @ -None Diagnosis/symptom? @ -Shortness of breath, COPD exacebation Acute, or Chronic, or Acute on Chronic? @ -Acute Uncomplicated (without systemic symptoms) or Complicated (systemic symptoms)? @ -Uncomplicated Side effects of treatment? @ -None Exacerbation, Progression, or Severe Exacerbation] @ -Not applicable regarding shortness of breath, Exacerbation of COPD Poses a threat to life or bodily function? @ -Unlikely Return precautions reviewed in depth, the patient is instructed to return to the emergency department with any new, worsening, or concerning symptoms. Patient verbalized understanding. This case was discussed in detail with the attending ED physician, Dr. Torres. Presentation, findings, and treatment plan discussed in detail as well. - Lab Data Result diagrams: 10/01/23 16:04 10/01/23 16:04 Lab Results 10/01/23 10/01/23 10/01/23 Range/Units 16:04 16:04 16:04 WBC 10.5 (3.8-10.6) k/uL RBC 4.35 (3.80-5.40) m/uL Hgb 15.0 (11.4-16.0) gm/dL Hct 44.6 (34.0-46.0) % MCV 102.5 H (80.0-100.0) fL MCH 34.6 (25.0-35.0) pg MCHC 33.8 (31.0-37.0) g/dL RDW 14.6 (11.5-15.5) % Plt Count 297 (150-450) k/uL MPV 7.1 Neutrophils % 64 % Lymphocytes % 29 % Monocytes % 3 % Eosinophils % 2 % Basophils % 1 % Neutrophils # 6.7 (1.3-7.7) k/uL Lymphocytes # 3.1 (1.0-4.8) k/uL Monocytes # 0.3 (0-1.0) k/uL Eosinophils # 0.2 (0-0.7) k/uL Basophils # 0.1 (0-0.2) k/uL Macrocytosis Slight PT 10.5 (10.0-12.5) sec INR 1.0 (<1.2) APTT 24.8 (22.0-30.0) sec D-Dimer 0.27 (<0.60) mg/L FEU Sodium 140 (137-145) mmol/L Potassium 3.6 (3.5-5.1) mmol/L Chloride 106 (98-107) mmol/L Carbon Dioxide 26 (22-30) mmol/L Anion Gap 8 mmol/L BUN 9 (7-17) mg/dL Creatinine 0.98 (0.52-1.04) mg/dL Est GFR (CKD-EPI)AfAm 79 (>60 ml/min/1.73 sqM) Est GFR (CKD-EPI)NonAf 68 (>60 ml/min/1.73 sqM) Glucose 80 (74-99) mg/dL Plasma Lactic Acid Manuel (0.7-2.0) mmol/L Calcium 9.3 (8.4-10.2) mg/dL Total Bilirubin 0.4 (0.2-1.3) mg/dL AST 18 (14-36) U/L ALT 10 (4-34) U/L Alkaline Phosphatase 85 (38-126) U/L Troponin I (0.000-0.034) ng/mL Total Protein 7.1 (6.3-8.2) g/dL Albumin 4.0 (3.5-5.0) g/dL HCG, Qual Not Detected Urine HCG, Qual (Not Detectd) Influenza Type A (PCR) (Not Detectd) Influenza Type B (PCR) (Not Detectd) RSV (PCR) (Not Detectd) SARS-CoV-2 (PCR) (Not Detectd) 10/01/23 10/01/23 10/01/23 Range/Units 16:04 16:04 16:04 WBC (3.8-10.6) k/uL RBC (3.80-5.40) m/uL Hgb (11.4-16.0) gm/dL Hct (34.0-46.0) % MCV (80.0-100.0) fL MCH (25.0-35.0) pg MCHC (31.0-37.0) g/dL RDW (11.5-15.5) % Plt Count (150-450) k/uL MPV Neutrophils % % Lymphocytes % % Monocytes % % Eosinophils % % Basophils % % Neutrophils # (1.3-7.7) k/uL Lymphocytes # (1.0-4.8) k/uL Monocytes # (0-1.0) k/uL Eosinophils # (0-0.7) k/uL Basophils # (0-0.2) k/uL Macrocytosis PT (10.0-12.5) sec INR (<1.2) APTT (22.0-30.0) sec D-Dimer (<0.60) mg/L FEU Sodium (137-145) mmol/L Potassium (3.5-5.1) mmol/L Chloride (98-107) mmol/L Carbon Dioxide (22-30) mmol/L Anion Gap mmol/L BUN (7-17) mg/dL Creatinine (0.52-1.04) mg/dL Est GFR (CKD-EPI)AfAm (>60 ml/min/1.73 sqM) Est GFR (CKD-EPI)NonAf (>60 ml/min/1.73 sqM) Glucose (74-99) mg/dL Plasma Lactic Acid Manuel 1.2 (0.7-2.0) mmol/L Calcium (8.4-10.2) mg/dL Total Bilirubin (0.2-1.3) mg/dL AST (14-36) U/L ALT (4-34) U/L Alkaline Phosphatase (38-126) U/L Troponin I <0.012 (0.000-0.034) ng/mL Total Protein (6.3-8.2) g/dL Albumin (3.5-5.0) g/dL HCG, Qual Urine HCG, Qual Not Detected (Not Detectd) Influenza Type A (PCR) (Not Detectd) Influenza Type B (PCR) (Not Detectd) RSV (PCR) (Not Detectd) SARS-CoV-2 (PCR) (Not Detectd) 10/01/23 Range/Units 16:22 WBC (3.8-10.6) k/uL RBC (3.80-5.40) m/uL Hgb (11.4-16.0) gm/dL Hct (34.0-46.0) % MCV (80.0-100.0) fL MCH (25.0-35.0) pg MCHC (31.0-37.0) g/dL RDW (11.5-15.5) % Plt Count (150-450) k/uL MPV Neutrophils % % Lymphocytes % % Monocytes % % Eosinophils % % Basophils % % Neutrophils # (1.3-7.7) k/uL Lymphocytes # (1.0-4.8) k/uL Monocytes # (0-1.0) k/uL Eosinophils # (0-0.7) k/uL Basophils # (0-0.2) k/uL Macrocytosis PT (10.0-12.5) sec INR (<1.2) APTT (22.0-30.0) sec D-Dimer (<0.60) mg/L FEU Sodium (137-145) mmol/L Potassium (3.5-5.1) mmol/L Chloride (98-107) mmol/L Carbon Dioxide (22-30) mmol/L Anion Gap mmol/L BUN (7-17) mg/dL Creatinine (0.52-1.04) mg/dL Est GFR (CKD-EPI)AfAm (>60 ml/min/1.73 sqM) Est GFR (CKD-EPI)NonAf (>60 ml/min/1.73 sqM) Glucose (74-99) mg/dL Plasma Lactic Acid Manuel (0.7-2.0) mmol/L Calcium (8.4-10.2) mg/dL Total Bilirubin (0.2-1.3) mg/dL AST (14-36) U/L ALT (4-34) U/L Alkaline Phosphatase (38-126) U/L Troponin I (0.000-0.034) ng/mL Total Protein (6.3-8.2) g/dL Albumin (3.5-5.0) g/dL HCG, Qual Urine HCG, Qual (Not Detectd) Influenza Type A (PCR) Not Detected (Not Detectd) Influenza Type B (PCR) Not Detected (Not Detectd) RSV (PCR) Not Detected (Not Detectd) SARS-CoV-2 (PCR) Not Detected (Not Detectd) - Radiology Data Radiology results: report reviewed, image reviewed Disposition Clinical Impression: Nicotine dependence, COPD exacerbation Disposition: HOME SELF-CARE Instructions (If sedation given, give patient instructions): Acute Bronchitis (ED), COPD (Chronic Obstructive Pulmonary Disease) (ED) Additional Instructions: Return to the emergency department with any new, worsening, or concerning symptoms. Take the antibiotic as prescribed for 5 days. Take the steroid daily for 5 days. You can use the albuterol inhaler every 4-6 hours as needed for shortness of breath. Follow up with your primary care provider in 1-2 days. Prescriptions: Albuterol Sulfate [Albuterol Sulfate Hfa] 1 - 2 puff PO Q4-6H PRN #8.5 gm PRN Reason: Shortness Of Breath predniSONE 50 mg PO DAILY 5 Days #5 tab Azithromycin [Zithromax] 250 mg PO DIRECTED 5 Days #6 tab Is patient prescribed a controlled substance at d/c from ED?: No Referrals: Kb Wyatt MD [Primary Care Provider] - 1-2 days Time of Disposition: 17:58
[2023-10-01 16:46] LABS: Basophils # (A) 0.1 k/uL (0-0.2); Basophils % (A) 1 %; Eosinophils # (A) 0.2 k/uL (0-0.7); Eosinophils % (A) 2 %; HCT 44.6 % (34.0-46.0); Lymphocytes # (A) 3.1 k/uL (1.0-4.8); Lymphocytes % (A) 29 %; MCH 34.6 pg (25.0-35.0); MCHC 33.8 g/dL (31.0-37.0); MCV 102.5 fL (80.0-100.0); Macrocytosis Slight; Mean Platelet Volume 7.1; Monocytes # (A) 0.3 k/uL (0-1.0); Monocytes % (A) 3 %; Neutrophils # (A) 6.7 k/uL (1.3-7.7); Neutrophils % (A) 64 %; Platelet Count 297 k/uL (150-450); RBC 4.35 m/uL (3.80-5.40); RDW 14.6 % (11.5-15.5); WBC 10.5 k/uL (3.8-10.6)
[2023-10-01 17:00] LABS: Partial Thromboplastin Time 24.8 sec (22.0-30.0); Prothrombin Time 10.5 sec (10.0-12.5)
[2023-10-01 17:01] LABS: ALT 10 U/L (4-34); AST 18 U/L (14-36); African American GFR (CKD) 79 (>60 ml/min/1.73 sqM); Alkaline Phosphatase 85 U/L (38-126); Anion Gap 8 mmol/L; Blood Urea Nitrogen 9 mg/dL (7-17); Calcium 9.3 mg/dL (8.4-10.2); Carbon Dioxide 26 mmol/L (22-30); Chloride 106 mmol/L (98-107); Glucose 80 mg/dL (74-99); Non-African American GFR(CKD) 68 (>60 ml/min/1.73 sqM); Potassium 3.6 mmol/L (3.5-5.1); Sodium 140 mmol/L (137-145); Total Bilirubin 0.4 mg/dL (0.2-1.3); Total Protein 7.1 g/dL (6.3-8.2)
--- NOTE | 2023-10-01 17:03 | CT ---
EXAMINATION TYPE: CT chest angio for PE DATE OF EXAM: 10/01/2023 COMPARISON: Radiograph 06/24/2023 HISTORY: 47-year-old female shortness of breath, difficulty breathing, elevated HR TECHNIQUE: Contiguous axial scanning of the chest performed with IV Contrast, patient injected with 1 00 mL of Isovue 300. Coronal and sagittal MIP reconstructions performed. CT DLP: 390.2 mGycm Automated exposure control for dose reduction was used. FINDINGS: The heart is normal size with trace anterior pericardial fluid. No flattening of the intraventricular septum reflux of contrast into the hepatic veins. Aorta normal caliber with conventional branching anatomy. Prominent lower right paratracheal lymph node at 1.1 cm probably reactive/post inflammatory. Right hi lar node measures 9 mm. No evidence for pulmonary embolus. Mild diffuse bronchial wall thickening and some strandy atelectasis in the lower lungs. No consolidat ion or pleural effusion. Visualized upper abdomen shows small gallstones without abnormal gallbladder distention. Bones: No osseous destructive process. IMPRESSION: 1. NO EVIDENCE FOR PULMONARY EMBOLUS. 2. Mild diffuse bronchial wall thickening suggests bronchitis or chronic asthma. Clinically correlate . 3. Cholelithiasis.
[2023-10-01 17:09] LABS: HCG,Qualitative Serum Not Detected
[2023-10-01] MEDS: methylPREDNISolone SOD SUCCI 125 MG/2 ML VIAL IV STA (17:37)
[2023-10-01] MEDS: IPRATROPIUM-ALBUTEROL 3 ML NEB INHALATION STA (17:39)
[2023-10-01] MEDS: SODIUM CHLORIDE 0.9% 1,000 ML IV STA (18:11)
[2023-10-01 19:41] VITALS: BP 116/58; PULSE 68; RESP 87; TEMP 97.8
== END 2023-10-01 19:16 | disposition home or self-care (01) ==
LOC: EC 15:34
DX: J44.1 Chronic obstructive pulmonary disease with (acute) exacerbation (principal); K80.20 Calculus of gallbladder without cholecystitis without obstruction; F17.200 Nicotine dependence, unspecified, uncomplicated; Z86.59 Personal history of other mental and behavioral disorders; Z20.822 Contact with and (suspected) exposure to COVID-19
CPT/HCPCS: 36415; 94640; 93005; 85379; 80053; 83605; 84484; 85025; 85610; 85730; 81025; 84703; 87636; 71275; 99285; 96374; 96361; J2930; Q9967

== ENCOUNTER 2023-11-18 14:27 | Emergency (ER) | payer OTHER ==
--- NOTE | 2023-11-18 15:21 | ED ---
General Adult HPI - General Chief complaint: Extremity Injury, Lower Stated complaint: R leg issues - pos blood clot Time Seen by Provider: 11/18/23 14:45 Source: patient, RN notes reviewed Mode of arrival: ambulatory Limitations: no limitations - History of Present Illness Initial comments: This is a 48-year-old female with a past medical history of DVT and thrombectomy on Xarelto presents emergency department chief complaint of right lower extremity pain and over the last week. Patient states that her experience specialist reports emergency department for further evaluation. She endorses dyspnea that is unchanged from from baseline, patient is following with logistic specialist currently for further workup. She admits to right lower extremity pain and sw elling that is worse with ambulation and swelling is most prominent at night. Patient states that she has pain with active flexion of the right ankle. Patient's history includes a DVT of the right lower extremity including the calf and thigh resulting in a thrombectomy in May of 2023. - Related Data Home Medications Medication Instructions Recorded Confirmed Rivaroxaban [Xarelto Starter Pack] See Taper PO DIRECTED 06/24/23 06/24/23 Previous Rx's Medication Instructions Recorded Atorvastatin [Lipitor] 20 mg PO HS 30 Days #30 tablet 06/18/23 Magnesium Oxide [Mag-Ox] 400 mg PO BID 5 Days #10 tab 06/18/23 Albuterol Sulfate [Albuterol 1 - 2 puff PO Q4-6H PRN #8.5 gm 10/01/23 Sulfate Hfa] Azithromycin [Zithromax] 250 mg PO DIRECTED 5 Days #6 tab 10/01/23 predniSONE 50 mg PO DAILY 5 Days #5 tab 10/01/23 Allergies Allergy/AdvReac Type Severity Reaction Status Date / Time No Known Allergies Allergy Verified 11/18/23 14:46 Review of Systems ROS Statement: Those systems with pertinent positive or pertinent negative responses have been documented in the HPI. ROS Other: All systems not noted in ROS Statement are negative. Past Medical History Past Medical History: GERD/Reflux, GI Bleed Additional Past Medical History / Comment(s): PAT HX OF MULTIPLE HEAD TRAUMA, ULCERS, ANEMIA, + HEMOCCULT, FREQ BRONCHITIS AND SINUS AND EAR INFECTIONS, ALSO HAS HAD BLOOD IN STOOL, VERTIGO, Chronic back pain, Migraine, bipolar, anxiety, depression, History of Any Multi-Drug Resistant Organisms: None Reported Past Surgical History: Section, Orthopedic Surgery Additional Past Surgical History / Comment(s): C-SEC X 2. COLONOSCOPY/EGD. RT Carpal Tunnel Surgery. thrombectomy Past Anesthesia/Blood Transfusion Reactions: No Reported Reaction Past Psychological History: Anxiety, Bipolar, Depression Smoking Status: Current every day smoker Past Alcohol Use History: None Reported, Daily, Heavy Past Drug Use History: Marijuana - Past Family History Mother Family Medical History: No Reported History General Exam Limitations: no limitations General appearance: alert, in no apparent distress Head exam: Present: atraumatic, normocephalic, normal inspection Eye exam: Present: normal appearance, PERRL, EOMI. Absent: scleral icterus, conjunctival injection, periorbital swelling ENT exam: Present: normal exam, mucous membranes moist Neck exam: Present: normal inspection. Absent: tenderness, meningismus, lymphadenopathy Respiratory exam: Present: normal lung sounds bilaterally. Absent: respiratory distress, wheezes, rales, rhonchi, stridor Cardiovascular Exam: Present: regular rate, normal rhythm, normal heart sounds. Absent: systolic murmur, diastolic murmur, rubs, gallop, clicks GI/Abdominal exam: Present: soft, normal bowel sounds. Absent: distended, tenderness, guarding, rebound, rigid Right Lower Leg exam: Present: normal inspection, tenderness. Absent: full ROM (dorsiflexion and plantarflexion results in pain of the calf), swelling, abrasion, laceration, ecchymosis, crepitus, dislocation, erythema Ankle exam: Present: normal inspection Neurovascular tendon exam: Present: no vascular compromise. Absent: abnormal cap refill, motor deficit, sensory deficit, tendon deficit Back exam: Present: normal inspection Neurological exam: Present: alert, oriented X3, CN II-XII intact Psychiatric exam: Present: normal affect, normal mood Skin exam: Present: warm, dry, intact, normal color. Absent: rash Course Vital Signs 11/18/23 11/18/23 14:42 16:10 Temperature 97.9 F Pulse Rate 91 76 Respiratory 18 18 Rate Blood Pressure 110/62 94/60 O2 Sat by Pulse 98 97 Oximetry Medical Decision Making - Medical Decision Making Was pt. sent in by a medical professional or institution (, PA, JUNIOR ACCOUNTANT BOOKKEEPER, urgent care, hospital, or prison...) When possible be specific @ -No Did you speak to anyone other than the patient for history (EMS, parent, family, police, friend...)? What history was obtained from this source @ -No Did you review nursing and triage notes (agree or disagree)? Why? @ -I reviewed and agree with nursing and triage notes Were old charts reviewed (outside hosp., previous admission, EMS record, old EKG, old radiological studies, urgent care reports/EKG's, prison records)? Report findings @ -No old charts were reviewed Differential Diagnosis (chest pain, altered mental status, abdominal pain women, abdominal pain men, vaginal bleeding, weakness, fever, dyspnea, syncope, headache, dizziness, GI bleed, back pain, seizure, CVA, palpatations, mental health, musculoskeletal)? @ -DVT, SVT, thrombophlebitis, leg pain EKG interpreted by me (3pts min.). @ -None X-rays interpreted by me (1pt min.). @ -None done CT interpreted by me (1pt min.). @ -None done U/S interpreted by me (1pt. min.). @ -Ultrasound of the right lower extremity reveals no evidence of right lower extremity DVT What testing was considered but not performed or refused? (CT, X-rays, U/S, labs )? Why? @ -None What meds were considered but not given or refused? Why? @ -None Did you discuss the management of the patient with other professionals (professionals i.e. , PA, JUNIOR ACCOUNTANT BOOKKEEPER, lab, RT, psych nurse, social services aide, converting technician, teacher, correction officer reformatory, supervisor case loading)? Give summary @ -No Was smoking cessation discussed for >3mins.? @ -No Was critical care preformed (if so, how long)? @ -No Were there social determinants of health that impacted care today? How? (Homelessness, low income, unemployed, alcoholism, drug addiction, transportation, low edu. Level, literacy, decrease access to med. care, long term, rehab)? @ -No Was there de-escalation of care discussed even if they declined (Discuss DNR or withdrawal of care, Hospice)? DNR status @ -No What co-morbidities impacted this encounter? (DM, HTN, Smoking, COPD, CAD, Cancer, CVA, ARF, Chemo, Hep., AIDS, mental health diagnosis, sleep apnea, morbid obesity)? @ -None Was patient admitted / discharged? Hospital course, mention meds given and route, prescriptions, significant lab abnormalities, going to OR and other pertinent info. @ -Discharge. 48-year-old female with chief complaint of right lower extremity pain. On examination there is no notable erythema, no palpable cord. Patient has pain elicited with active and passive plantar and dorsiflexion of the right foot. Patient is able to ambulate and a pedal pulses palpated. Ultrasound unremarkable for evidence of DVT. Discussion with the patient that she may be experiencing symptoms secondary to clot from the fall. Recommend that patient use warm compresses at home and compression stockings during the day to minimize lower extremity edema. Patient is in agreement with this. Discussed with Dr. Lagunas Undiagnosed new problem with uncertain prognosis? @ -No Drug Therapy requiring intensive monitoring for toxicity (Heparin, Nitro, Insulin, Cardizem)? @ -No Were any procedures done? @ -No Diagnosis/symptom? @ lower leg pain, history of DVT, muscle pain Acute, or Chronic, or Acute on Chronic? @ -acute Uncomplicated (without systemic symptoms) or Complicated (systemic symptoms)? @ -uncomplicated Side effects of treatment? @ -No Exacerbation, Progression, or Severe Exacerbation? @ -No Poses a threat to life or bodily function? How? (Chest pain, [place], [place], pneumonia, PE, COPD, DKA, ARF, appy, cholecystitis, CVA, Diverticulitis, Homicidal, Suicidal, threat to staff... and all critical care pts) @ -No Disposition Clinical Impression: History of DVT (deep vein thrombosis), Right leg pain Narrative: Please return to the Emergency Department if symptoms worsen or any other concerns. Recommend use of compression stockings and warm compresses in addition to tylenol and topical medications as needed. Disposition: HOME SELF-CARE Condition: Good Instructions (If sedation given, give patient instructions): Venous Insuf ficiency (DC) Is patient prescribed a controlled substance at d/c from ED?: No Referrals: Kb Wyatt MD [Primary Care Provider] - 1-2 days Time of Disposition: 16:36
[2023-11-18 15:29] VITALS: RESP 18; TEMP 97.9
[2023-11-18 16:13] VITALS: BP 94/60; PULSE 76
[2023-11-18] MEDS: HYDROmorphone 0.5 MG/0.5 ML SYRINGE IM STA (16:14)
[2023-11-18] MEDS: HYDROmorphone 0.5 MG/0.5 ML SYRINGE IVP STA (16:15)
--- NOTE | 2023-11-18 16:21 | US ---
EXAMINATION TYPE: US venous doppler duplex LE RT DATE OF EXAM: 11/18/2023 4:02 PM COMPARISON: NONE CLINICAL INDICATION: Female, 48 years old with history of pain, hv DVT of right leg; Hx blood clot rt groin and knee last May, on thinners SIDE PERFORMED: Right TECHNIQUE: The lower extremity deep venous system is examined utilizing real time linear array sonog namrata with graded compression, doppler sonography and color-flow sonography. VESSELS IMAGED: Common Femoral Vein Deep Femoral Vein Greater Saphenous Vein * Femoral Vein Popliteal Vein Small Saphenous Vein * Proximal Calf Veins (* superficial vessels) The deep venous system of the right lower extremity from the common femoral vein to the proximal calf veins is patent and compressible with augmentable flow and normal waveforms. IMPRESSION: No evidence of right lower extremity DVT from the common femoral vein to the proximal calf veins.
== END 2023-11-18 16:39 | disposition home or self-care (01) ==
LOC: EC 14:27
DX: M79.604 Pain in right leg (principal); F17.200 Nicotine dependence, unspecified, uncomplicated; Z86.718 Personal history of other venous thrombosis and embolism; Z79.01 Long term (current) use of anticoagulants
CPT/HCPCS: 93971; 99284; 96372; J1170

== ENCOUNTER → 2024-02-28 | Outpatient (CLI) | payer OTHER | END | disposition home or self-care (01) | LOC: RADECHMAIN 16:45 | PROVIDERS: ATTEND Internal Medicine Cardiovascular Disease | DX: Z86.718 Personal history of other venous thrombosis and embolism (principal) | CPT/HCPCS: 93306 ==

== ENCOUNTER 2024-04-15 12:26 | Emergency (ER) | payer OTHER ==
[2024-04-15 12:30] VITALS: TEMP 98.2
[2024-04-15] MEDS: HYDROmorphone 0.5 MG/0.5 ML SYRINGE IVP STA (13:04)
[2024-04-15] MEDS: ONDANSETRON 4 MG/2 ML VIAL IVP STA (13:04)
[2024-04-15] MEDS: KETOROLAC 15 MG/ML 1 ML VIAL IVP STA (13:04)
[2024-04-15] MEDS: SODIUM CHLORIDE 0.9% 500 ML 500 ML IV STA (13:05)
[2024-04-15] MEDS: SODIUM CHLORIDE 0.9% 1,000 ML IV STA (13:05)
[2024-04-15 13:24] LABS: Basophils # (A) 0.1 k/uL (0-0.2); Basophils % (A) 1 %; Eosinophils # (A) 0.2 k/uL (0-0.7); Eosinophils % (A) 2 %; HCT 49.6 % (34.0-46.0); HGB 15.9 gm/dL (11.4-16.0); Lymphocytes # (A) 2.7 k/uL (1.0-4.8); Lymphocytes % (A) 24 %; MCH 31.7 pg (25.0-35.0); MCHC 32.1 g/dL (31.0-37.0); MCV 98.8 fL (80.0-100.0); Mean Platelet Volume 6.6; Monocytes # (A) 0.4 k/uL (0-1.0); Monocytes % (A) 3 %; Neutrophils # (A) 7.7 k/uL (1.3-7.7); Neutrophils % (A) 68 %; Platelet Count 303 k/uL (150-450); RBC 5.03 m/uL (3.80-5.40); RDW 15.1 % (11.5-15.5); WBC 11.3 k/uL (3.8-10.6)
[2024-04-15 13:27] LABS: Appearance,Urine Cloudy (Clear); Bilirubin,Urine 1+ (Negative); Blood,Urine Trace (Negative); Color,Urine Yellow; Glucose,Urine (UA) Negative (Negative); Ketones,Urine 1+ (Negative); Leukocyte Esterase,Urine Large (Negative); Mucus,Urine Many /hpf; Nitrite,Urine Negative (Negative); Protein,Urine 1+ (Negative); RBC,Urine 14 /hpf (0-5); Squamous Epithelial Cell,Urine 19 /hpf (0-4); WBC,Urine 76 /hpf (0-5)
[2024-04-15 13:48] LABS: ALT 14 U/L (4-34); African American GFR (CKD) >90 (>60 ml/min/1.73 sqM); Anion Gap 7 mmol/L; Blood Urea Nitrogen 14 mg/dL (7-17); Calcium 9.8 mg/dL (8.4-10.2); Carbon Dioxide 26 mmol/L (22-30); Chloride 106 mmol/L (98-107); Glucose 95 mg/dL (74-99); Lipase 57 U/L (23-300); Non-African American GFR(CKD) 87 (>60 ml/min/1.73 sqM); Sodium 139 mmol/L (137-145)
[2024-04-15 14:00] LABS: Albumin 4.9 g/dL (3.5-5.0); Potassium 4.8 mmol/L (3.5-5.1); Total Protein 8.4 g/dL (6.3-8.2)
[2024-04-15 14:01] LABS: AST 41 U/L (14-36); Alkaline Phosphatase 66 U/L (38-126); Total Bilirubin 1.2 mg/dL (0.2-1.3)
--- NOTE | 2024-04-15 15:03 | ED ---
Abdominal Pain HPI - General Chief Complaint: Abdominal Pain Stated Complaint: L side pain/vomitting Time Seen by Provider: 04/15/24 12:31 Source: patient, RN notes reviewed Mode of arrival: ambulatory Limitations: no limitations - History of Present Illness Initial Comments: 48-year-old female presents emergency department chief complaint of left-sided abdominal pain. Patient states that the pain started Wednesday has been persistent. Patient states sometimes she has pain with certain movement she does admit to nausea and vomiting no change in bowel habits no urinary frequency but has some dysuria. No fevers or chills she states she is having gallbladder surgery in 3 weeks. She denies history of diverticulitis no rashes - Related Data Home Medications Medication Instructions Recorded Confirmed Rivaroxaban [Xarelto Starter Pack] See Taper PO DIRECTED 06/24/23 06/24/23 Previous Rx's Medication Instructions Recorded Atorvastatin [Lipitor] 20 mg PO HS 30 Days #30 tablet 06/18/23 Magnesium Oxide [Mag-Ox] 400 mg PO BID 5 Days #10 tab 06/18/23 Albuterol Sulfate [Albuterol 1 - 2 puff PO Q4-6H PRN #8.5 gm 10/01/23 Sulfate Hfa] Azithromycin [Zithromax] 250 mg PO DIRECTED 5 Days #6 tab 10/01/23 predniSONE 50 mg PO DAILY 5 Days #5 tab 10/01/23 Cephalexin [Keflex] 500 mg PO Q8HR #21 cap 04/15/24 Ondansetron Odt [Zofran Odt] 4 mg PO Q8HR PRN #10 tab 04/15/24 Allergies Allergy/AdvReac Type Severity Reaction Status Date / Time No Known Allergies Allergy Verified 04/15/24 12:29 Review of Systems ROS Statement: Those systems with pertinent positive or pertinent negative responses have been documented in the HPI. ROS Other: All systems not noted in ROS Statement are negative. Past Medical History Past Medical History: GERD/Reflux, GI Bleed Additional Past Medical History / Comment(s): PAT HX OF MULTIPLE HEAD TRAUMA, ULCERS, ANEMIA, + HEMOCCULT, FREQ BRONCHITIS AND SINUS AND EAR INFECTIONS, ALSO HAS HAD BLOOD IN STOOL, VERTIGO, Chronic back pain, Migraine, bipolar, anxiety, depression, History of Any Multi-Drug Resistant Organisms: None Reported Past Surgical History: Section, Orthopedic Surgery Additional Past Surgical History / Comment(s): C-SEC X 2. COLONOSCOPY/EGD. RT Carpal Tunnel Surgery. thrombectomy Past Anesthesia/Blood Transfusion Reactions: No Reported Reaction Past Psychological History: Anxiety, Bipolar, Depression Smoking Status: Current every day smoker Past Alcohol Use History: None Reported Past Drug Use History: Marijuana - Past Family History Mother Family Medical History: No Reported History General Exam Limitations: no limitations General appearance: alert, in no apparent distress Head exam: Present: atraumatic, normocephalic, normal inspection Eye exam: Present: normal appearance, PERRL, EOMI. Absent: scleral icterus, conjunctival injection, periorbital swelling ENT exam: Present: normal exam, normal oropharynx, mucous membranes moist Neck exam: Present: normal inspection, full ROM. Absent: tenderness, meningismus, lymphadenopathy Respiratory exam: Present: normal lung sounds bilaterally. Absent: respiratory distress, wheezes, rales, rhonchi, stridor Cardiovascular Exam: Present: normal rhythm, tachycardia, normal heart sounds. Absent: systolic murmur, diastolic murmur, rubs, gallop, clicks GI/Abdominal exam: Present: soft, tenderness, normal bowel sounds. Absent: distended, guarding, rebound, rigid Back exam: Absent: CVA tenderness (R), CVA tenderness (L) Neurological exam: Present: alert Skin exam: Present: warm, dry, intact, normal color. Absent: rash Course Vital Signs 04/15/24 12:27 Temperature 98.2 F Pulse Rate 113 H Respiratory 16 Rate Blood Pressure 136/86 O2 Sat by Pulse 100 Oximetry Medical Decision Making - Medical Decision Making Was pt. sent in by a medical professional or institution (, PA, RECEIVING WEIGHER, urgent care, hospital, or fci...) When possible be specific @ -No Did you speak to anyone other than the patient for history (EMS, parent, family, police, friend...)? What history was obtained from this source @ -No Did you review nursing and triage notes (agree or disagree)? Why? @ -I reviewed and agree with nursing and triage notes Were old charts reviewed (outside hosp., previous admission, EMS record, old EKG, old radiological studies, urgent care reports/EKG's, fci records)? Report findings @ -No old charts were reviewed Differential Diagnosis (chest pain, altered mental status, abdominal pain women, abdominal pain men, vaginal bleeding, weakness, fever, dyspnea, syncope, headache, dizziness, GI bleed, back pain, seizure, CVA, palpatations, mental health, musculoskeletal)? @ -Differential Abdominal Pain Women: Appendicitis, Cholecystitis, diverticulosis, ischemic bowel, pancreatitis, hepatitis, UTI, gastroenteritis, AAA, incarcerated hernia, bowel obstruction, constipation, inflammatory bowel, hepatitis, peptic ulcer disease, splenic infarction, perforated viscus, vulvitis, ovarian torsion, PID, kidney stone, placenta abruption, this is not meant to be an all-inclusive list EKG interpreted by me (3pts min.). @ -None X-rays interpreted by me (1pt min.). @ -None done CT interpreted by me (1pt min.). @ -CT abdomen pelvis showing cholelithiasis no other acute intra-abdominal process no noted diverticulitis U/S interpreted by me (1pt. min.). @ -None done What testing was considered but not performed or refused? (CT, X-rays, U/S, labs)? Why? @ -None What meds were considered but not given or refused? Why? @ -None Did you discuss the management of the patient with other professionals (professionals i.e. , PA, RECEIVING WEIGHER, lab, RT, psych nurse, director social, checkout supervisor, teacher, event security officer, director case)? Give summary @ -No Was smoking cessation discussed for >3mins.? @ -No Was critical care preformed (if so, how long)? @ -No Were there social determinants of health that impacted care today? How? (Homelessness, low income, unemployed, alcoholism, drug addiction, transportation, low edu. Level, literacy, decrease access to med. care, custodial, rehab)? @ -No Was there de-escalation of care discussed even if they declined (Discuss DNR or withdrawal of care, Hospice)? DNR status @ -No What co-morbidities impacted this encounter? (DM, HTN, Smoking, COPD, CAD, Cancer, CVA, ARF, Chemo, Hep., AIDS, mental health diagnosis, sleep apnea, morbid obesity)? @ -None Was patient admitted / discharged? Hospital course, mention meds given and route, prescriptions, significant lab abnormalities, going to OR and other pertinent info. @ -Discharged patient presented for left-sided abdominal paged patient found to have UTI probable early pyelonephritis. Patient was given Rocephin discharged on oral antibiotics with close follow-up return plans discussed. Undiagnosed new problem with uncertain prognosis? @ -No Drug Therapy requiring intensive monitoring for toxicity (Heparin, Nitro, Insulin, Cardizem)? @ -No Were any procedures done? @ -No Diagnosis/symptom? @ -Abdominal pain, UTI Acute, or Chronic, or Acute on Chronic? @ -Acute Uncomplicated (without systemic symptoms) or Complicated (systemic symptoms)? @ -Uncomplicated Side effects of treatment? @ -No Exacerbation, Progression, or Severe Exacerbation? @ -No Poses a threat to life or bodily function? How? (Chest pain, [place], [place], pneumonia, PE, COPD, DKA, ARF, appy, cholecystitis, CVA, Diverticulitis, Homicidal, Suicidal, threat to staff... and all critical care pts) @ -No - Lab Data Result diagrams: 04/15/24 13:18 04/15/24 13:18 Lab Results 04/15/24 04/15/24 04/15/24 Range/Units 13:18 13:18 13:18 WBC 11.3 H (3.8-10.6) k/uL RBC 5.03 (3.80-5.40) m/uL Hgb 15.9 (11.4-16.0) gm/dL Hct 49.6 H (34.0-46.0) % MCV 98.8 (80.0-100.0) fL MCH 31.7 (25.0-35.0) pg MCHC 32.1 (31.0-37.0) g/dL RDW 15.1 (11.5-15.5) % Plt Count 303 (150-450) k/uL MPV 6.6 Neutrophils % 68 % Lymphocytes % 24 % Monocytes % 3 % Eosinophils % 2 % Basophils % 1 % Neutrophils # 7.7 (1.3-7.7) k/uL Lymphocytes # 2.7 (1.0-4.8) k/uL Monocytes # 0.4 (0-1.0) k/uL Eosinophils # 0.2 (0-0.7) k/uL Basophils # 0.1 (0-0.2) k/uL Sodium 139 (137-145) mmol/L Potassium 4.8 (3.5-5.1) mmol/L Chloride 106 (98-107) mmol/L Carbon Dioxide 26 (22-30) mmol/L Anion Gap 7 mmol/L BUN 14 (7-17) mg/dL Creatinine 0.80 (0.52-1.04) mg/dL Est GFR (CKD-EPI)AfAm >90 (>60 ml/min/1.73 sqM) Est GFR (CKD-EPI)NonAf 87 (>60 ml/min/1.73 sqM) Glucose 95 (74-99) mg/dL Plasma Lactic Acid Manuel (0.7-2.0) mmol/L Calcium 9.8 (8.4-10.2) mg/dL Total Bilirubin 1.2 (0.2-1.3) mg/dL AST 41 H (14-36) U/L ALT 14 (4-34) U/L Alkaline Phosphatase 66 (38-126) U/L Total Protein 8.4 H (6.3-8.2) g/dL Albumin 4.9 (3.5-5.0) g/dL Lipase 57 (23-300) U/L Urine Color Yellow Urine Appearance Cloudy H (Clear) Urine pH 6.0 (5.0-8.0) Ur Specific [place] 1.030 (1.001-1.035) Urine Protein 1+ H (Negative) Urine Glucose (UA) Negative (Negative) Urine Ketones 1+ H (Negative) Urine Blood Trace H (Negative) Urine Nitrite Negative (Negative) Urine Bilirubin 1+ H (Negative) Urine Urobilinogen 4.0 (<2.0) mg/dL Ur Leukocyte Esterase Large H (Negative) Urine RBC 14 H (0-5) /hpf Urine WBC 76 H (0-5) /hpf Ur Squamous Epith Cells 19 H (0-4) /hpf Urine Mucus Many H (None) /hpf 04/15/24 Range/Units 13:18 WBC (3.8-10.6) k/uL RBC (3.80-5.40) m/uL Hgb (11.4-16.0) gm/dL Hct (34.0-46.0) % MCV (80.0-100.0) fL MCH (25.0-35.0) pg MCHC (31.0-37.0) g/dL RDW (11.5-15.5) % Plt Count (150-450) k/uL MPV Neutrophils % % Lymphocytes % % Monocytes % % Eosinophils % % Basophils % % Neutrophils # (1.3-7.7) k/uL Lymphocytes # (1.0-4.8) k/uL Monocytes # (0-1.0) k/uL Eosinophils # (0-0.7) k/uL Basophils # (0-0.2) k/uL Sodium (137-145) mmol/L Potassium (3.5-5.1) mmol/L Chloride (98-107) mmol/L Carbon Dioxide (22-30) mmol/L Anion Gap mmol/L BUN (7-17) mg/dL Creatinine (0.52-1.04) mg/dL Est GFR (CKD-EPI)AfAm (>60 ml/min/1.73 sqM) Est GFR (CKD-EPI)NonAf (>60 ml/min/1.73 sqM) Glucose (74-99) mg/dL Plasma Lactic Acid Manuel 1.0 (0.7-2.0) mmol/L Calcium (8.4-10.2) mg/dL Total Bilirubin (0.2-1.3) mg/dL AST (14-36) U/L ALT (4-34) U/L Alkaline Phosphatase (38-126) U/L Total Protein (6.3-8.2) g/dL Albumin (3.5-5.0) g/dL Lipase (23-300) U/L Urine Color Urine Appearance (Clear) Urine pH (5.0-8.0) Ur Specific [place] (1.001-1.035) Urine Protein (Negative) Urine Glucose (UA) (Negative) Urine Ketones (Negative) Urine Blood (Negative) Urine Nitrite (Negative) Urine Bilirubin (Negative) Urine Urobilinogen (<2.0) mg/dL Ur Leukocyte Esterase (Negative) Urine RBC (0-5) /hpf Urine WBC (0-5) /hpf Ur Squamous Epith Cells (0-4) /hpf Urine Mucus (None) /hpf Disposition Clinical Impression: UTI (urinary tract infection), Abdominal pain Disposition: HOME SELF-CARE Condition: Stable Instructions (If sedation given, give patient instructions): Abdominal Pain (ED) Additional Instructions: Please return to the Emergency Department if symptoms worsen or any other concerns. Prescriptions: Cephalexin [Keflex] 500 mg PO Q8HR #21 cap Ondansetron Odt [Zofran Odt] 4 mg PO Q8HR PRN #10 tab PRN Reason: Nausea Is patient prescribed a controlled substance at d/c from ED?: No Referrals: Kb Wyatt MD [Primary Care Provider] - 1-2 days Time of Disposition: 15:54
--- NOTE | 2024-04-15 15:37 | CT ---
EXAMINATION TYPE: CT abdomen pelvis w con CT DLP: 959.4 mGycm, Automated exposure control for dose reduction was used. DATE OF EXAM: 04/15/2024 2:58 PM COMPARISON: CT abdomen pelvis most recent from 06/24/2023 CLINICAL INDICATION: Female, 48 years old with history of abdominal pain; LLQ abdominal pain x 4 days TECHNIQUE: Axial CT abdomen pelvis w con;Sagittal and coronal reformats were created on a separate w orkstation. Contrast used:100 mL of Isovue 300 with IV Contrast, (none if empty) Oral contrast used: without Oral Contrast (none if empty) FINDINGS: LOWER CHEST: Unremarkable ABDOMEN LIVER: Unremarkable GALLBLADDER AND BILE DUCTS: Layering gallstones in the gallbladder lumen. PANCREAS: Unremarkable. SPLEEN: Unremarkable. ADRENAL GLANDS: Unremarkable. KIDNEYS AND URETERS: No evidence of hydronephrosis or renal calculus. The ureters are unremarkable. PELVIS BLADDER: Unremarkable REPRODUCTIVE: Unremarkable. ABDOMEN & PELVIS STOMACH AND BOWEL: No evidence of bowel obstruction. The appendix is normal. PERITONEUM/RETROPERITONEUM: No evidence of pneumoperitoneum or free fluid. VASCULATURE: No evidence of aortic aneurysm. MUSCULOSKELETAL: No acute osseous abnormalities LYMPH NODES: No gross evidence for lymphadenopathy. SOFT TISSUE/ABDOMINAL WALL: Tiny fat-containing umbilical hernia. IMPRESSION: 1. No evidence for acute left lower quadrant process to explain the patient's pain. No diverticuliti s or obstructive uropathy.. 2. Cholelithiasis. [facility], , 04/15/2024 3:35 PM
[2024-04-15] MEDS: ONDANSETRON 4 MG ODT STARTER PACK 2 TAB BTL PO STA (16:08)
[2024-04-15] MEDS: ACET/COD 300 MG/30 MG STARTER PACK 6 TAB BTL PO STA (16:08)
[2024-04-15] MEDS: cefTRIAXone IN SWFI 1,000 MG/10 ML SYRINGE IVP STA (16:09)
[2024-04-15 16:13] VITALS: BP 130/78; PULSE 78; RESP 18
== END 2024-04-15 16:13 | disposition home or self-care (01) ==
LOC: EC 12:26
CPT/HCPCS: 36415; 74177; 80053; 81001; 83605; 83690; 85025; 87086; 96361; 96374; 96375; 99284

== ENCOUNTER → 2024-07-11 | Outpatient (CLI) | payer OTHER ==
--- NOTE | 2024-07-11 21:23 | MR ---
EXAMINATION TYPE: MR lumbar spine wo/w con DATE OF EXAM: 07/11/2024 8:30 PM COMPARISON: CT abdomen and pelvis 04/15/2024, MR C-spine/L-spine 11/12/2015 CLINICAL INDICATION: Female, 48 years old with history of R94.131, abnormal emg, blood clots in right leg. low back pain that radiates down both legs, mostly left IV Contrast: 7.5 cc Gadobutrol (None if empty) TECHNIQUE: Multiplanar, multisequence images of the lumbar spine were acquired without and with 7.5 mL intraveno us Gadobutrol gadolinium contrast. T12-L1: Normal disc appearance without desiccation. No herniation, protrusion or disc bulging. No c anal stenosis is present. Foramina are patent bilaterally. L1-L2: Normal disc appearance without desiccation. No herniation, protrusion or disc bulging. No ca nal stenosis is present. Foramina are patent bilaterally. L2-L3: Normal disc appearance without desiccation. No herniation, protrusion or disc bulging. No ca nal stenosis is present. Foramina are patent bilaterally. L3-L4: Mild disc desiccation. Minimal broad-based disc bulge. No canal stenosis is present. Bilatera l facet arthropathy with ligamentum flavum buckling. Foramina are patent bilaterally. L4-L5: Mild disc desiccation. Minimal broad-based disc bulge. No canal stenosis is present. Bilatera l facet arthropathy with ligamentum flavum buckling. Foramina are patent bilaterally. L5-S1: Mild disc desiccation. Small posterior central disc protrusion redemonstrated. Small annular f issure. No canal stenosis is present. Bilateral facet arthropathy with ligamentum flavum buckling. Fo ramina are patent bilaterally. Lumbar spine demonstrates maintained vertebral body heights and alignment. No paraspinal masses are i dentified. Bone marrow signals within normal limits. Conus medullaris has a normal appearance. No ab normal contrast enhancement. Right renal 1 cm T2 hyperintense cyst involving the lower pole. IMPRESSION: 1. Small L5-S1 disc protrusion redemonstrated without significant central canal stenosis. 2. Mild multilevel degenerative disc disease of the lower lumbar spine. [facility], , 07/11/2024 9:20 PM
== END | disposition home or self-care (01) ==
LOC: RADMRIMAIN 19:20
PROVIDERS: ATTEND Family Medicine
DX: M51.369 Other intervertebral disc degeneration, lumbar region without mention of lumbar back pain or lower extremity pain (principal); M51.27 Other intervertebral disc displacement, lumbosacral region; R94.131 Abnormal electromyogram [EMG]; M47.897 Other spondylosis, lumbosacral region
CPT/HCPCS: 72158; A9585

== ENCOUNTER 2024-10-05 08:48 | Day surgery (SDC) | payer OTHER ==
[2024-10-05 09:25] VITALS: TEMP 96.7
[2024-10-05 09:26] LABS: Glucose,Whole Blood 108 mg/dL (70-110)
[2024-10-05] MEDS ORDERED: IOPAMIDOL M200 10 ML VIAL ONE (09:53)
[2024-10-05] MEDS ORDERED: methylPREDNISolone ACETATE 80 MG/ML 1 ML VIAL ONE (09:53)
[2024-10-05] MEDS ORDERED: ROPIVACAINE 5MG/ML 20ML VIAL ONE (09:53)
--- NOTE | 2024-10-05 10:02 | P.PCN ---
Date of Procedure: 10/05/24 Procedure(s) Performed: Procedure= Left sacroiliac joints steroid injection under fluoroscopy guidance (fluoroscopy image stored on file in the radiology Department ) Preoperative diagnosis= 1-Left sacroiliitis 2-lumbar Radiculopathy. Postoperative diagnosis=Same as preop Diagnosis . Complication = none Condition= stable Anesthesia= local anesthesia with ropivacaine 0.5% 2 ml only Indication for the procedure= patient complaining of low back pain , examination was positive for severe tenderness over the left sacroiliac joint, and patient diagnosed with left sacroiliitis, for this reason she was good candidate for left sacroiliac joint steroid injection. Description of the procedure= procedure risk and benefits discussed with the patient, including but not limited, risk of infection and bleeding, and ALLERGIC reaction to the medication and not complete pain relief and patient agreed with the preceding patient taken to the operating room, placed in prone position or standard monitors applied to the patient then after induction of anesthesia back prepped with chlorhexidine 3 times , Then under strict sterile technique, first I did the Left sacroiliac joint the which was identified under fluoroscopy guidance been local infiltration of the skin and subcu interstitial with lidocaine 1% then 22-gauge Quincke Needle advanced slowly under fluoroscopy and placed in the right sacroiliac joint needle placement confirmed with AP and oblique and lateral view, then after that Isovue 200 one mL injected which confirmed the correct needle placement with the appropriate arthrogram of the sacroiliac joint, and after appropriate needle placement confirmed and after negative aspiration, or heme , then Ropivacaine 0.5% 3 mL, and 60 mg of Depo-Medrol mixed together and injected in the right sacroiliac joint after negative aspiration patient tolerated the procedure well without any complication.
--- NOTE | 2024-10-05 10:14 | FL ---
EXAMINATION TYPE: FL guided pain mgmt statistic DATE OF EXAM: 10/05/2024 10:05 AM COMPARISON: Pre Operative Images if available both CT/MRI or plain film CLINICAL INDICATION: Female, 48 years old with history of SI JOINT INJ; TECHNIQUE: FL guided pain mgmt statistic, multiple fluoroscopic images provided for procedure. DAP: 0.34183 mGym2 Gycm2 uGym2 cGycm2 or equivalent. FINDINGS: Fluoroscopic images during injection for pain management. No evidence for fracture. No acute process identified. IMPRESSION: 1. No evidence for intraoperative complication. 2. Please see the operative/procedural note for further details. [facility], , 10/05/2024 10:12 AM
[2024-10-05 10:28] VITALS: BP 121/64; PULSE 83; RESP 14
== END 2024-10-05 10:36 | disposition home or self-care (01) ==
LOC: ORPAIN 08:48
PROVIDERS: ATTEND Specialist
DX: M46.1 Sacroiliitis, not elsewhere classified (principal); M54.16 Radiculopathy, lumbar region
CPT/HCPCS: 81025; Q9966; J2795; J1010; G0260; 27096

== ENCOUNTER → 2024-10-25 | Outpatient (CLI) | payer OTHER ==
[2024-10-25 13:28] VITALS: BP 130/87; PULSE 88; RESP 19; TEMP 97.5
--- NOTE | 2024-10-25 15:32 | P.PAINPG ---
Objective - Vital Signs Vital signs: Intake & Output 10/24/24 10/25/24 10/25/24 18:59 06:59 18:59 Weight 77.111 kg PQRS Measure Charge Sheet Comment: HISTORY OF PRESENT ILLNESS: A 49 yr old female presents today w severe and chronic LBP > 6 mo secondary to radiculopathy, spondylosis and facet arthropathy without myelopathy, L Sacroiliitis for evaluation s/p L SI #1. Pt states she experienced 0% pain relief s/p procedure. Pt states pain level is provoked at 7-8 /10 in intensity, constant, localized in the lower lumbar spine, predominantly axial, sharp in character w occasional shooting pain towards the LLE. Pain is provoked by sitting for periods > 20 min. Pain is alleviated by PT x 6 wks (Apr-May 2024 which was discontinued due to intractable pain), physician guided home stretches daily since May 2024, heat, ice, medications, repositioning and rest . States ESIs have been ineffective in the past. States this L SI injection provoked LLE shooting pain. Interventional procedures include L SI x1 Medications include Flexeril, Tyl, Cannabis. Discontinued Antabuse. Stated Dr Geronimo told her she has gastroparesis, contraindication to narcotic use. REVIEW OF ORGAN SYSTEMS: CONSTITUTIONAL: No fevers or chills. No recent weight lo ss. NEUROLOGICAL: + numbness and tingling along the distal extremities. No seizure disorders or headaches. MUSCULOSKELETAL: + pain PSYCHIATRIC: Denies current depression or suicidal thoughts. Physical Examinations : Constitutional : Cooperative , not in acute distress . Neurologic : Cranial nerve II to XII intact. No focal neurological deficits. Psychiatric : alert & oriented x 3. Matching mood & appropriate affect. Judgment & insight intact. Musculoskeletal : Cervical Spine Motor strength in the deltoid and biceps: Normal right side. Normal Left side Motor strength biceps and the wrist e xtensors: Normal right side . Normal left side Motor strength in the triceps muscle: Normal right side. Normal left side Deep tendon reflexes: Normal at the biceps. Normal at Brachioradialis. Normal at triceps Vertebral body tenderness to deep palpation over Cervical facet loading test: positive bilaterally Spurling test: positive bilaterally Neck distraction test: positive bilaterally Nurys sign: positive bilaterally Lumbar spine Motor strength lower extremities ,thigh and legs 5/5 Right side , 5/5 Left side Deep tendon reflexes : Normal Knee Jerk. Normal Ankle Jerk Vertebral body tenderness over Ocampo Test positive Lumbar facet Loading Test: positive Right / positive Left Range of motion of the lumbar spine Flexion 30 degrees, extension 10 degrees Straight Leg Raise test: Left/ Right positive at degrees Gurpreet test: positive right / positive left. Severe tenderness over the Sacroiliac joint on the Right / Left sides Gaenslen test: positive bilaterally Seated flexion test: positive bilaterally. Sacral spine : Severe tenderness over the Sacroiliac joint: right side / left side Range of motion: Flexion of the lumbar spine <60 degrees Range of motion: Extension of the lumbar spine <20 degrees Gaenslen's Test positive L Gurpreet test: positive right side / left side Thigh Thrust Test L positive Sacral Thrust Test Imaging: MRI non contrast lumbar spine from 07/11/24 reviewed EMG 05/16/24 BLE diffuse sensory neuropathy and R L4-L5 nerve root irritation Assessment/ Plan : L3-L5 radiculopathy, L Sacroiliitis Recommendation of follow up w Dr Mirza to explore additional treatment options. Cannabis has pain relieving effects, but if pt chooses to take short couse of [place] 5/325mg #18 NR, she is to stop Cannabis use. Add lidocaine 4% from pharmacy downstairs. Use, side effects, adverse reactions, safe storage discus sed. All questions answered. I have spent greater than 30 minutes on patient care today. Dr Mayorga was available by phone for the evaluation of this patient. The time was used to review the medical records including relevant urine studies and Prescription history (MAPs), review of the available imaging, evaluation and examination of the patient, coordination of care with the medical staff and if applicable referring physicians, as well as creation of the medical record PQRS Narrative: Smoking Status Current every day smoker Hx Alcohol Use (MH) No Home Medications: Ambulatory Orders Atorvastatin [Lipitor] 20 mg PO HS 30 Days #30 tablet 06/18/23 Albuterol Sulfate [Albuterol Sulfate Hfa] 1 - 2 puff PO Q4-6H PRN #8.5 gm 10/01/23 Ondansetron Odt [Zofran Odt] 4 mg PO Q8HR PRN #10 tab 04/15/24 Cyclobenzaprine [Flexeril] 10 mg PO TID PRN 10/03/24 Levothyroxine Sodium [Synthroid] 25 mcg PO DAILY 10/03/24 Pantoprazole [Protonix] 40 mg PO BID 10/03/24 Rivaroxaban [Xarelto] 20 mg PO DAILY 10/03/24 HYDROcodone/APAP 5-325MG [[place] 5-325] 1 tab PO Q4HR PRN 3 Days #18 tab 10/25/24 Controlled Substance Measures - Controlled Substance Measures Is patient prescribed a controlled substance at discharge?: Yes When asked, does pt state using other controlled substances?: No If prescribed controlled substance>3 days was MAPS reviewed?: Prescribed <3 Days
== END ==
LOC: PNWHC3 12:54
PROVIDERS: ATTEND Specialist
DX: M47.26 Other spondylosis with radiculopathy, lumbar region (principal); M46.1 Sacroiliitis, not elsewhere classified; F17.200 Nicotine dependence, unspecified, uncomplicated
CPT/HCPCS: 99211

== ENCOUNTER → 2024-11-07 | Outpatient (CLI) | payer OTHER ==
--- NOTE | 2024-11-07 14:51 | MM ---
Reason for Exam: Screening (asymptomatic). Last mammogram was performed 1 year(s) and 3 month(s) ago. Patient History: Menarche at age 12. First Full-Term at age 22. Postmenopausal. Mother had ovarian cancer, age 40. Risk Values: Eliza 5 year model risk: 0.9%. NCI Lifetime model risk: 8.0%. Prior Study Comparison: 03/10/2016 Bilateral Screening Mammogram, Unknown. 08/16/2023 Bilateral MG screening mammo w CAD, [facility]. Tissue Density: There are scattered areas of fibroglandular density. Findings: Analyzed By CAD. There is no suspicious group of microcalcifications or new suspicious mass in either breast. Overall Assessment: Negative, BI-RAD 1 Management: Screening Mammogram of both breasts in 1 year. . Patient should continue monthly self-breast exams. A clinical breast exam by your physician is recommended on an annual basis. This exam should not preclude additional follow-up of suspicious palpable abnormalities. Note on Eliza scores and lifetime risk: 1. A Eliza score greater than 3% is considered moderate risk. If this is the case, consider specialist referral to assess eligibility for a risk reducing agent. 2. If overall lifetime risk for the development of breast cancer is 20% or higher, the patient may qualify for future screening with alternating mammogram and breast MRI. [facility], , 11/07/2024 2:47 PM. Electronically signed and approved by: Pipe Baker M.D.
== END | disposition home or self-care (01) ==
LOC: RADMAMWWP 14:28
PROVIDERS: ATTEND Family Medicine
DX: Z12.31 Encounter for screening mammogram for malignant neoplasm of breast (principal); R92.323 Mammographic fibroglandular density, bilateral breasts; Z78.0 Asymptomatic menopausal state
CPT/HCPCS: 77067

== ENCOUNTER 2024-11-14 12:08 | Emergency (ER) | payer OTHER ==
--- NOTE | 2024-11-14 13:17 | ED ---
General Adult HPI - General Chief complaint: Upper Respiratory Infection Stated complaint: congestion, SUKHJINDER Time Seen by Provider: 11/14/24 12:16 Source: patient, RN notes reviewed Mode of arrival: ambulatory Limitations: no limitations - History of Present Illness Initial comments: 49-year-old female with history of COPD presents to the emergency room with URI symptoms for the last week. Patient reports she has been coughing productive cough of white to yellow sputum. She has been having some chest tightness and shortness of breath. She endorses subjective fevers but has not quantified them. She states she has had bronchitis in the past. Currently smoking 3 to 4 cigarettes a day. Patient also reporting dysuria and frequency. Denies chills, nausea, vomiting, diarrhea, sick contacts. - Related Data Home Medications Medication Instructions Recorded Confirmed Cyclobenzaprine [Flexeril] 10 mg PO TID PRN 10/03/24 10/05/24 Levothyroxine Sodium [Synthroid] 25 mcg PO DAILY 10/03/24 10/05/24 Pantoprazole [Protonix] 40 mg PO BID 10/03/24 10/05/24 Rivaroxaban [Xarelto] 20 mg PO DAILY 10/03/24 10/05/24 Previous Rx's Medication Instructions Recorded Atorvastatin [Lipitor] 20 mg PO HS 30 Days #30 tablet 06/18/23 Albuterol Sulfate [Albuterol 1 - 2 puff PO Q4-6H PRN #8.5 gm 10/01/23 Sulfate Hfa] Ondansetron Odt [Zofran Odt] 4 mg PO Q8HR PRN #10 tab 04/15/24 HYDROcodone/APAP 5-325MG [Nada 1 tab PO Q4HR PRN 3 Days #18 tab 10/25/24 5-325] Albuterol Inhaler [Ventolin Hfa 2 puff INHALATION Q6H PRN #1 each 11/14/24 Inhaler] Pseudoephedrine 12Hr [Sudafed 12 120 mg PO Q12HR #14 tab 11/14/24 Hour] methylPREDNISolone [Medrol Dose See Taper PO DIRECTED #1 packet 11/14/24 Pack] Allergies Allergy/AdvReac Type Severity Reaction Status Date / Time No Known Allergies Allergy Verified 11/14/24 12:12 Review of Systems ROS Statement: Those systems with pertinent positive or pertinent negative responses have been documented in the HPI. ROS Other: All systems not noted in ROS Statement are negative. Constitutional: Denies: fever, chills ENT: Reports: throat pain Respiratory: Reports: cough, dyspnea, wheezes Cardiovascular: Denies: chest pain, palpitations Gastrointestinal: Denies: abdominal pain, nausea, vomiting, diarrhea, constipation Genitourinary: Reports: dysuria, frequency Musculoskeletal: Denies: back pain Skin: Denies: rash, lesions Neurological: Denies: headache, weakness Past Medical History Past Medical History: COPD, Deep Vein Thrombosis (DVT), GERD/Reflux, GI Bleed, Osteoarthritis (OA), Sleep Apnea/CPAP/BIPAP Additional Past Medical History / Comment(s): PAT HX OF MULTIPLE HEAD TRAUMA, ULCERS, ANEMIA, + HEMOCCULT, hx BRONCHITIS AND SINUS AND EAR INFECTIONS, Chronic back pain, Migraine, gastroparesis dx 6 mos ago. does not wear a cpap could not tolerate History of Any Multi-Drug Resistant Organisms: None Reported Past Surgical History: Section, Orthopedic Surgery Additional Past Surgical History / Comment(s): C-SEC X 2. COLONOSCOPY/EGD. RT Carpal Tunnel Surgery. thrombectomy Past Anesthesia/Blood Transfusion Reactions: No Reported Reaction Additional Past Anesthesia/Blood Transfusion Reaction / Comment(s): hx issues with breathing after anesthesia due to sleep apnea ( undx at the time) pt does not tolerate cpap. Past Psychological History: Anxiety, Bipolar, Depression Smoking Status: Current every day smoker Past Alcohol Use History: None Reported Past Drug Use History: Marijuana - Past Family History Mother Family Medical History: Deep Vein Thrombosis (DVT) Additional Family Medical History / Comment(s): dies at 40 DVT General Exam Limitations: no limitations General appearance: alert Respiratory exam: Present: wheezes (Bilateral wheezing at the bases.) Cardiovascular Exam: Present: regular rate, normal rhythm GI/Abdominal exam: Present: soft. Absent: distended, tenderness Back exam: Present: full ROM Neurological exam: Present: alert, oriented X3 Psychiatric exam: Present: normal affect, normal mood Skin exam: Present: warm, dry, intact Course Vital Signs 11/14/24 11/14/24 11/14/24 12:10 13:48 14:00 Temperature 97.6 F 98.1 F Pulse Rate 117 H 83 79 Respiratory 20 18 16 Rate Blood Pressure 125/93 107/78 O2 Sat by Pulse 98 98 Oximetry 11/14/24 11/14/24 14:07 15:29 Temperature 97.8 F Pulse Rate 84 79 Respiratory 16 18 Rate Blood Pressure 134/78 O2 Sat by Pulse 99 Oximetry Medical Decision Making - Medical Decision Making Was pt. sent in by a medical professional or institution ([facility], [employer] [facility], urgent care, hospital, or fdc...) When possible be specific @ -No Did you speak to anyone other than the patient for history (EMS, parent, family, police, friend...)? What history was obtained from this source @ -No Did you review nursing and triage notes (agree or disagree)? Why? @ -I reviewed and agree with nursing and triage notes Were old charts reviewed (outside hosp., previous admission, EMS record, old EKG, old radiological studies, urgent care reports/EKG's, fdc records)? Report findings @ -No old charts were reviewed Differential Diagnosis? @ -Differential Dyspnea: Coronary syndrome, arrhythmia, tamponade, asthma, COPD, pulmonary embolism, p neumonia, pneumothorax, pulmonary effusion, anaphylaxis, diabetic ketoacidosis, flailed chest, pulmonary contusion, diaphragmatic rupture, anemia, neuromuscular, this is not meant to be an all-inclusive list. EKG interpreted by me (3pts min.). @ -As interpreted by me sinus rhythm ventricular rate of 89 bpm, QTc 403 ms, no ST wave changes suggestive of ischemia X-rays interpreted by me (1pt min.). @ -Chest x-ray does not show any notable consolidations suggestive of pneumonia. CT interpreted by me (1pt min.). @ -None done U/S interpreted by me (1pt. min.). @ -None done What testing was considered but not performed or refused? (CT, X-rays, U/S, labs)? Why? @ -None What meds were considered but not given or refused? Why? @ -None Did you discuss the management of the patient with other professionals (professionals i.e. [facility], [employer] [facility], lab, RT, psych nurse, pediatric social worker, observation assistant, teacher, [employer] officer, employment evaluator/case manager)? Give summary @ -Case was discussed with ED attending Dr. Goyal. Was smoking cessation discussed for >3mins.? @ -I discussed smoking cessation for greater than 3 minutes. The risk of smoking were discussed with the patient including but not limited to risks of cancer, stroke, coronary artery disease and COPD. Also discussed with patient were multiple methods of quitting smoking. Lastly we discussed the financial cost of smoking. Was critical care preformed (if so, how long)? @ -No Were there social determinants of health that impacted care today? How? (Homelessness, low income, unemployed, alcoholism, drug addiction, transportation, low edu. Level, literacy, decrease access to med. care, detention, rehab)? @ -No Was there de-escalation of care discussed even if they declined (Discuss DNR or withdrawal of care, Hospice)? DNR status @ -No What co-morbidities impacted this encounter? (DM, HTN, Smoking, COPD, CAD, Cancer, CVA, ARF, Chemo, Hep., AIDS, mental health diagnosis, sleep apnea, morbid obesity)? @ -COPD Was patient admitted / discharged? Hospital course, mention meds given and route, prescriptions, significant lab abnormalities, going to OR and other pertinent info. @ - Patient received 1 DuoNeb and 1 dose of oral prednisone and breathing improved. Cepheid was negative. Patient will be discharged home with self-care. Patient to follow-up with PCP in 1 to 2 days. Patient will be discharged with Medrol Dosepak, albuterol and Sudafed. Undiagnosed new problem with uncertain prognosis? @ -No Drug Therapy requiring intensive monitoring for toxicity (Heparin, Nitro, Insulin, Cardizem)? @ -No Were any procedures done? @ -No Diagnosis/symptom? @ -Upper respiratory infection Acute, or Chronic, or Acute on Chronic? @ -Acute Uncomplicated (without systemic symptoms) or Complicated (systemic symptoms)? @ -Default Side effects of treatment? @ -No Exacerbation, Progression, or Severe Exacerbation? @ -No Poses a threat to life or bodily function? How? (Chest pain, [place], [place], pneumonia, PE, COPD, DKA, ARF, appy, cholecystitis, CVA, Diverticulitis, Homicidal, Suicidal, threat to staff... and all critical care pts) @ -No - Lab Data Result diagrams: 11/14/24 13:21 11/14/24 13:21 Lab Results 11/14/24 11/14/24 11/14/24 Range/Units 13:21 13:21 13:21 WBC 6.85 (4.50-10.00) 10*3/uL RBC 3.91 L (4.10-5.20) 10*6/uL Hgb 14.7 (12.0-15.0) g/dL Hct 41.5 (37.2-46.3) % MCV 106.1 H (80.0-97.0) fL MCH 37.6 H (27.0-32.0) pg MCHC 35.4 (32.0-37.0) g/dL Plt Count 210 (140-440) 10*3/uL MPV 8.7 L (9.5-12.2) fL Immature Gran % (Auto) 0.3 % Neutrophils % 57.1 % Lymphocytes % 34.0 % Monocytes % 4.8 % Eosinophils % 3.2 % Basophils % 0.6 % Immature Gran # 0.02 (0.00-0.04) 10*3/uL Neutrophils # 3.91 (1.80-7.70) 10*3/uL Lymphocytes # 2.33 (0.90-5.00) 10*3/uL Monocytes # 0.33 (0.20-1.00) 10*3/uL Eosinophils # 0.22 (0.04-0.35) 10*3/uL Basophils # 0.04 (0.00-0.10) 10*3/uL D-Dimer (<0.60) mg/L FEU Sodium 140 (137-145) mmol/L Potassium 4.0 (3.5-5.1) mmol/L Chloride 107 (98-107) mmol/L Carbon Dioxide 28 (22-30) mmol/L Anion Gap 5 mmol/L BUN 11 (7-17) mg/dL Creatinine 0.76 (0.52-1.04) mg/dL Est GFR (CKD-EPI)AfAm >90 (>60 ml/min/1.73 sqM) Est GFR (CKD-EPI)NonAf >90 (>60 ml/min/1.73 sqM) Glucose 96 (74-99) mg/dL Calcium 8.9 (8.4-10.2) mg/dL Magnesium 1.5 L (1.6-2.3) mg/dL Total Bilirubin 0.5 (0.2-1.3) mg/dL AST 26 (14-36) U/L ALT 16 (4-34) U/L Alkaline Phosphatase 74 (38-126) U/L Troponin I <0.012 (0.000-0.034) ng/mL Total Protein 6.8 (6.3-8.2) g/dL Albumin 3.9 (3.5-5.0) g/dL Urine Color Urine Appearance (Clear) Urine pH (5.0-8.0) Ur Specific [place] (1.001-1.035) Urine Protein (Negative) Urine Glucose (UA) (Negative) Urine Ketones (Negative) Urine Blood (Negative) Urine Nitrite (Negative) Urine Bilirubin (Negative) Urine Urobilinogen (<2.0) mg/dL Ur Leukocyte Esterase (Negative) Urine RBC (0-5) /hpf Urine WBC (0-5) /hpf Ur Squamous Epith Cells (0-4) /hpf Urine Mucus (None) /hpf Influenza Type A (PCR) (Not Detectd) Influenza Type B (PCR) (Not Detectd) RSV (PCR) (Not Detectd) SARS-CoV-2 (PCR) (Not Detectd) 11/14/24 11/14/24 11/14/24 Range/Units 13:21 13:21 13:21 WBC (4.50-10.00) 10*3/uL RBC (4.10-5.20) 10*6/uL Hgb (12.0-15.0) g/dL Hct (37.2-46.3) % MCV (80.0-97.0) fL MCH (27.0-32.0) pg MCHC (32.0-37.0) g/dL Plt Count (140-440) 10*3/uL MPV (9.5-12.2) fL Immature Gran % (Auto) % Neutrophils % % Lymphocytes % % Monocytes % % Eosinophils % % Basophils % % Immature Gran # (0.00-0.04) 10*3/uL Neutrophils # (1.80-7.70) 10*3/uL Lymphocytes # (0.90-5.00) 10*3/uL Monocytes # (0.20-1.00) 10*3/uL Eosinophils # (0.04-0.35) 10*3/uL Basophils # (0.00-0.10) 10*3/uL D-Dimer 0.18 (<0.60) mg/L FEU Sodium (137-145) mmol/L Potassium (3.5-5.1) mmol/L Chloride (98-107) mmol/L Carbon Dioxide (22-30) mmol/L Anion Gap mmol/L BUN (7-17) mg/dL Creatinine (0.52-1.04) mg/dL Est GFR (CKD-EPI)AfAm (>60 ml/min/1.73 sqM) Est GFR (CKD-EPI)NonAf (>60 ml/min/1.73 sqM) Glucose (74-99) mg/dL Calcium (8.4-10.2) mg/dL Magnesium (1.6-2.3) mg/dL Total Bilirubin (0.2-1.3) mg/dL AST (14-36) U/L ALT (4-34) U/L Alkaline Phosphatase (38-126) U/L Troponin I (0.000-0.034) ng/mL Total Protein (6.3-8.2) g/dL Albumin (3.5-5.0) g/dL Urine Color Light Yellow Urine Appearance Clear (Clear) Urine pH 6.5 (5.0-8.0) Ur Specific [place] 1.017 (1.001-1.035) Urine Protein Negative (Negative) Urine Glucose (UA) Negative (Negative) Urine Ketones Negative (Negative) Urine Blood Negative (Negative) Urine Nitrite Negative (Negative) Urine Bilirubin Negative (Negative) Urine Urobilinogen <2.0 (<2.0) mg/dL Ur Leukocyte Esterase Moderate H (Negative) Urine RBC 1 (0-5) /hpf Urine WBC 3 (0-5) /hpf Ur Squamous Epith Cells 2 (0-4) /hpf Urine Mucus Rare H (None) /hpf Influenza Type A (PCR) Not Detected (Not Detectd) Influenza Type B (PCR) Not Detected (Not Detectd) RSV (PCR) Not Detected (Not Detectd) SARS-CoV-2 (PCR) Not Detected (Not Detectd) Disposition Clinical Impression: Upper respiratory tract infection Disposition: HOME SELF-CARE Condition: Stable Instructions (If sedation given, give patient instructions): Upper Respiratory Infection (ED) Additional Instructions: Every disease is a spectrum and a small chance still exists that a serious condition could develop, for this reason, please monitor yourself closely for new, changing or worsening symptoms, symptoms that persist beyond 48 hours, any further episodes of vomiting blood, difficulty in breathing, severe abdominal pain, symptoms that did not improve in the next 48 hours, black or bloody stools, fever, inability to tolerate/keep down fluids or your medications, inability to follow up with outpatient providers as instructed and should you experience these symptoms or should you have any further concerns for your wellbeing please return to the ED or call 911 immediately. PLEASE take prescriptions as listed in discharge instructions. PLEASE call your primary care physician as soon as possible to arrange / discuss plan for followup appointment. Appointment in the next 1-3 days is strongly encouraged if possible. PLEASE let us know here before you leave if there is anything further we can do to be of any assistance. Take care and feel Better! Prescriptions: methylPREDNISolone [Medrol Dose Pack] See Taper PO DIRECTED #1 packet Pseudoephedrine 12Hr [Sudafed 12 Hour] 120 mg PO Q12HR #14 tab Albuterol Inhaler [Ventolin Hfa Inhaler] 2 puff INHALATION Q6H PRN #1 each PRN Reason: Shortness Of Breath Or Wheezing Is patient prescribed a controlled substance at d/c from ED?: No Referrals: Kb Wyatt MD [Primary Care Provider] - 1-2 days Time of Disposition: 15:00
[2024-11-14 13:27] LABS: Basophils # (A) 0.04 10*3/uL (0.00-0.10); Basophils % (A) 0.6 %; Eosinophils # (A) 0.22 10*3/uL (0.04-0.35); Eosinophils % (A) 3.2 %; HCT 41.5 % (37.2-46.3); HGB 14.7 g/dL (12.0-15.0); Lymphocytes # (A) 2.33 10*3/uL (0.90-5.00); MCH 37.6 pg (27.0-32.0); MCHC 35.4 g/dL (32.0-37.0); MCV 106.1 fL (80.0-97.0); Mean Platelet Volume 8.7 fL (9.5-12.2); Monocytes # (A) 0.33 10*3/uL (0.20-1.00); Monocytes % (A) 4.8 %; Neutrophils # (A) 3.91 10*3/uL (1.80-7.70); Neutrophils % (A) 57.1 %; Platelet Count 210 10*3/uL (140-440); RBC 3.91 10*6/uL (4.10-5.20); WBC 6.85 10*3/uL (4.50-10.00)
[2024-11-14 13:31] LABS: Appearance,Urine Clear (Clear); Bilirubin,Urine Negative (Negative); Blood,Urine Negative (Negative); Color,Urine Light Yellow; Glucose,Urine (UA) Negative (Negative); Ketones,Urine Negative (Negative); Leukocyte Esterase,Urine Moderate (Negative); Mucus,Urine Rare /hpf; Nitrite,Urine Negative (Negative); PH, Urine 6.5 (5.0-8.0); Protein,Urine Negative (Negative); RBC,Urine 1 /hpf (0-5); Specific Gravity,Urine 1.017 (1.001-1.035); Squamous Epithelial Cell,Urine 2 /hpf (0-4); Urobilinogen,Urine <2.0 mg/dL (<2.0); WBC,Urine 3 /hpf (0-5)
[2024-11-14] MEDS: predniSONE 20 MG TAB PO STA (13:47)
[2024-11-14 13:51] LABS: ALT 16 U/L (4-34); AST 26 U/L (14-36); African American GFR (CKD) >90 (>60 ml/min/1.73 sqM); Albumin 3.9 g/dL (3.5-5.0); Alkaline Phosphatase 74 U/L (38-126); Anion Gap 5 mmol/L; Blood Urea Nitrogen 11 mg/dL (7-17); Calcium 8.9 mg/dL (8.4-10.2); Carbon Dioxide 28 mmol/L (22-30); Chloride 107 mmol/L (98-107); Glucose 96 mg/dL (74-99); Magnesium 1.5 mg/dL (1.6-2.3); Non-African American GFR(CKD) >90 (>60 ml/min/1.73 sqM); Sodium 140 mmol/L (137-145); Total Bilirubin 0.5 mg/dL (0.2-1.3); Total Protein 6.8 g/dL (6.3-8.2)
[2024-11-14] MEDS: IPRATROPIUM-ALBUTEROL 3 ML NEB INHALATION STA (14:00)
[2024-11-14 14:01] LABS: Influenza A Not Detected (Not Detectd); Influenza B Not Detected (Not Detectd); RSV Not Detected (Not Detectd)
--- NOTE | 2024-11-14 14:01 | XR ---
EXAMINATION TYPE: XR chest 2V DATE OF EXAM: 11/14/2024 1:33 PM COMPARISON: Chest radiographs from 06/24/2023. CLINICAL INDICATION: Female, 49 years old with history of difficulty breathing; TECHNIQUE: XR chest 2V Frontal and lateral views of the chest. FINDINGS: Lungs/Pleura: There is no evidence of pleural effusion, focal consolidation, or pneumothorax. Pulmonary vascularity: Unremarkable. Heart/mediastinum: Cardiomediastinal silhouette is unremarkable. Musculoskeletal: No acute osseous pathology. IMPRESSION: No acute cardiopulmonary disease/process. [facility], , 11/14/2024 1:59 PM
[2024-11-14] MEDS: MAGNESIUM OXIDE 400 MG TAB PO STA (14:39)
[2024-11-14 15:30] VITALS: BP 134/78; PULSE 79; RESP 18; TEMP 97.8
== END 2024-11-14 15:30 | disposition home or self-care (01) ==
LOC: EC 12:08
DX: J06.9 Acute upper respiratory infection, unspecified (principal); J44.9 Chronic obstructive pulmonary disease, unspecified; F17.210 Nicotine dependence, cigarettes, uncomplicated
CPT/HCPCS: 36415; 94640; 93005; 85379; 80053; 83735; 84484; 85025; 81001; 87636; 71046; 99285; J7512

== ENCOUNTER 2024-12-27 05:18 | Emergency (ER) | payer OTHER ==
[2024-12-27 05:24] VITALS: RESP 18; TEMP 98.2
--- NOTE | 2024-12-27 05:49 | ED ---
URI HPI - General Chief Complaint: Upper Respiratory Infection Stated Complaint: SUKHJINDER Time Seen by Provider: 12/27/24 05:34 Source: patient, EMS Mode of arrival: EMS - History of Present Illness Initial Comments: This patient is 49-year-old woman who presents from [facility] to have evaluation of cough, wheezing, congestion which started approximately 2 to 3 days ago and has been getting progressively worse. Patient has not noted fever or chills. No sore throat. There is rhinorrhea/congestion, coughing and wheezing. No chest pain. MD Complaint: cough, nasal congestion Onset/Timin -: days(s) Severity: moderate Consistency: constant Improves With: nothing Worsens With: nothing Associated Symptoms: cough Treatments Prior to Arrival: none - Related Data Home Medications Medication Instructions Recorded Confirmed Cyclobenzaprine [Flexeril] 10 mg PO TID PRN 10/03/24 10/05/24 Levothyroxine Sodium [Synthroid] 25 mcg PO DAILY 10/03/24 10/05/24 Pantoprazole [Protonix] 40 mg PO BID 10/03/24 10/05/24 Rivaroxaban [Xarelto] 20 mg PO DAILY 10/03/24 10/05/24 Previous Rx's Medication Instructions Recorded Atorvastatin [Lipitor] 20 mg PO HS 30 Days #30 tablet 06/18/23 Albuterol Sulfate [Albuterol 1 - 2 puff PO Q4-6H PRN #8.5 gm 10/01/23 Sulfate Hfa] Ondansetron Odt [Zofran Odt] 4 mg PO Q8HR PRN #10 tab 04/15/24 HYDROcodone/APAP 5-325MG [[place] 1 tab PO Q4HR PRN 3 Days #18 tab 10/25/24 5-325] Albuterol Inhaler [Ventolin Hfa 2 puff INHALATION Q6H PRN #1 each 11/14/24 Inhaler] Pseudoephedrine 12Hr [Sudafed 12 120 mg PO Q12HR #14 tab 11/14/24 Hour] methylPREDNISolone [Medrol Dose See Taper PO DIRECTED #1 packet 11/14/24 Pack] Albuterol Inhaler [Ventolin Hfa 2 puff INHALATION Q4HR PRN #8 gm 12/27/24 Inhaler] predniSONE 60 mg PO DAILY #30 tab 12/27/24 Allergies Allergy/AdvReac Type Severity Reaction Status Date / Time No Known Allergies Allergy Verified 12/27/24 05:24 Review of Systems ROS Statement: Those systems with pertinent positive or pertinent negative responses have been documented in the HPI. ROS Other: All systems not noted in ROS Statement are negative. Constitutional: Denies: fever, chills ENT: Reports: congestion. Denies: throat pain Respiratory: Reports: cough, dyspnea, wheezes. Denies: hemoptysis Cardiovascular: Reports: edema. Denies: chest pain, palpitations, orthopnea, syncope Gastrointestinal: Denies: abdominal pain, vomiting, diarrhea Musculoskeletal: Denies: back pain Skin: Denies: rash Neurological: Denies: headache Past Medical History Past Medical History: COPD, Deep Vein Thrombosis (DVT), GERD/Reflux, GI Bleed, Osteoarthritis (OA), Sleep Apnea/CPAP/BIPAP Additional Past Medical History / Comment(s): PAT HX OF MULTIPLE HEAD TRAUMA, ULCERS, ANEMIA, + HEMOCCULT, hx BRONCHITIS AND SINUS AND EAR INFECTIONS, Chronic back pain, Migraine, gastroparesis dx 6 mos ago. does not wear a cpap could not tolerate History of Any Multi-Drug Resistant Organisms: None Reported Past Surgical History: Section, Orthopedic Surgery Additional Past Surgical History / Comment(s): C-SEC X 2. COLONOSCOPY/EGD. RT Carpal Tunnel Surgery. thrombectomy Past Anesthesia/Blood Transfusion Reactions: No Reported Reaction Additional Past Anesthesia/Blood Transfusion Reaction / Comment(s): hx issues with breathing after anesthesia due to sleep apnea ( undx at the time) pt does not tolerate cpap. Past Psychological History: Anxiety, Bipolar, Depression Smoking Status: Current every day smoker Past Alcohol Use History: None Reported Past Drug Use History: Marijuana - Past Family History Mother Family Medical History: Deep Vein Thrombosis (DVT) Additional Family Medical History / Comment(s): dies at 40 DVT General Exam General appearance: alert, in no apparent distress Head exam: Present: atraumatic, normocephalic Eye exam: Present: normal appearance. Absent: scleral icterus, conjunctival injection ENT exam: Present: normal oropharynx Neck exam: Present: normal inspection Respiratory exam: Present: wheezes. Absent: respiratory distress, rales, rhonchi, stridor, accessory muscle use Cardiovascular Exam: Present: regular rate, normal rhythm, normal heart sounds. Absent: systolic murmur, diastolic murmur, rubs, gallop GI/Abdominal exam: Present: soft. Absent: distended, tenderness, guarding, rebound, rigid, mass Extremities exam: Present: normal inspection, normal capillary refill, pedal edema (Trace edema at the ankles bilaterally). Absent: calf tenderness Back exam: Present: normal inspection. Absent: CVA tenderness (R), CVA tenderness (L) Neurological exam: Present: alert Skin exam: Present: warm, dry, intact, normal color. Absent: rash Course Vital Signs 12/27/24 12/27/24 12/27/24 05:19 06:48 06:58 Temperature 98.2 F Pulse Rate 98 99 94 Respiratory 18 Rate Blood Pressure 132/76 O2 Sat by Pulse 90 L Oximetry 12/27/24 07:55 Temperature Pulse Rate 78 Respiratory 18 Rate Blood Pressure 138/78 O2 Sat by Pulse 99 Oximetry Medical Decision Making - Medical Decision Making The patient had two-view chest x-ray that I interpreted as negative for acute infiltrate, pneumothorax, congestive heart failure. Was pt. sent in by a medical professional or institution (, PA, MUSIC ORCHESTRATOR, urgent care, hospital, or jail...) When possible be specific @ -Yes the patient is sent from [facility] Did you speak to anyone other than the patient for history (EMS, parent, family, police, friend...)? What history was obtained from this source @ -[No] Did you review nursing and triage notes (agree or disagree)? Why? @ -[I reviewed and agree with nursing and triage notes] Were old charts reviewed (outside hosp., previous admission, EMS record, old EKG, old radiological studies, urgent care reports/EKG's, jail records)? Report findings @ -[No old charts were reviewed] Differential Diagnosis (chest pain, altered mental status, abdominal pain women, abdominal pain men, vaginal bleeding, weakness, fever, dyspnea, syncope, headache, dizziness, GI bleed, back pain, seizure, CVA, palpatations, mental health, musculoskeletal)? @ -[Differential Dyspnea: Coronary syndrome, arrhythmia, tamponade, asthma, COPD, pulmonary embolism, pneumonia, pneumothorax, pulmonary effusion, anaphylaxis, diabetic ketoacidosis, flailed chest, pulmonary contusion, diaphragmatic rupture, anemia, neuromuscular, this is not meant to be an all-inclusive list. EKG interpreted by me (3pts min.). @ -[I interpreted as above] X-rays interpreted by me (1pt min.). @ -[I interpreted as above CT interpreted by me (1pt min.). @ -[None done] U/S interpreted by me (1pt. min.). @ -[None done] What testing was considered but not performed or refused? (CT, X-rays, U/S, labs)? Why? @ -[None] What meds were considered but not given or refused? Why? @ -[None] Did you discuss the management of the patient with other professionals (professionals i.e. Dr., PA, MUSIC ORCHESTRATOR, lab, RT, psych nurse, social science instructor, courtesy booth cashier, teacher, environmental health officer, case management director)? Give summary @ -[No] Was smoking cessation discussed for >3mins.? @ -[No] Was critical care preformed (if so, how long)? @ -[No] Were there social determinants of health that impacted care today? How? (Homelessness, low income, unemployed, alcoholism, drug addiction, transportation, low edu. Level, literacy, decrease access to med. care, correction, rehab)? @ -[No] Was there de-escalation of care discussed even if they declined (Discuss DNR or withdrawal of care, Hospice)? DNR status @ -[No] What co-morbidities impacted this encounter? (DM, HTN, Smoking, COPD, CAD, Cancer, CVA, ARF, Chemo, Hep., AIDS, mental health diagnosis, sleep apnea, morbid obesity)? @ -[None] Was patient admitted / discharged? Hospital course, mention meds given and route, prescriptions, significant lab abnormalities, going to OR and other pertinent info. @ -[hospital course] Undiagnosed new problem with uncertain prognosis? @ -[No] Drug Therapy requiring intensive monitoring for toxicity (Heparin, Nitro, Insulin, Cardizem)? @ -[No] Were any procedures done? @ -[No] Diagnosis/symptom? @ -[Acute bronchitis Acute, or Chronic, or Acute on Chronic? @ -Acute Uncomplicated (without systemic symptoms) or Complicated (systemic symptoms)? @ -[Uncomplicated Side effects of treatment? @ -[No] Exacerbation, Progression, or Severe Exacerbation? @ -[No] Poses a threat to life or bodily function? How? (Chest pain, [place], NH, pneumonia, PE, COPD, DKA, ARF, appy, cholecystitis, CVA, Diverticulitis, Homicidal, Suicidal, threat to staff... and all critical care pts) @ -[No] All treatments are based on ideal body weight as in ED triage - Lab Data Result diagrams: 12/27/24 06:25 12/27/24 06:25 Lab Results 12/27/24 12/27/24 12/27/24 Range/Units 05:44 06:25 06:25 WBC 7.12 (4.50-10.00) 10*3/uL RBC 3.29 L (4.10-5.20) 10*6/uL Hgb 12.0 (12.0-15.0) g/dL Hct 35.7 L (37.2-46.3) % MCV 108.5 H (80.0-97.0) fL MCH 36.5 H (27.0-32.0) pg MCHC 33.6 (32.0-37.0) g/dL Plt Count 188 (140-440) 10*3/uL MPV 8.7 L (9.5-12.2) fL Immature Gran % (Auto) 0.4 % Neutrophils % 63.1 % Lymphocytes % 27.8 % Monocytes % 5.9 % Eosinophils % 2.2 % Basophils % 0.6 % Immature Gran # 0.03 (0.00-0.04) 10*3/uL Neutrophils # 4.49 (1.80-7.70) 10*3/uL Lymphocytes # 1.98 (0.90-5.00) 10*3/uL Monocytes # 0.42 (0.20-1.00) 10*3/uL Eosinophils # 0.16 (0.04-0.35) 10*3/uL Basophils # 0.04 (0.00-0.10) 10*3/uL Manual Slide Review Performed D-Dimer <0.17 (<0.60) mg/L FEU Sodium (137-145) mmol/L Potassium (3.5-5.1) mmol/L Chloride (98-107) mmol/L Carbon Dioxide (22-30) mmol/L Anion Gap mmol/L BUN (7-17) mg/dL Creatinine (0.52-1.04) mg/dL Est GFR (CKD-EPI)AfAm (>60 ml/min/1.73 sqM) Est GFR (CKD-EPI)NonAf (>60 ml/min/1.73 sqM) Glucose (74-99) mg/dL Calcium (8.4-10.2) mg/dL Total Bilirubin (0.2-1.3) mg/dL AST (14-36) U/L ALT (4-34) U/L Alkaline Phosphatase (38-126) U/L NT-Pro-B Natriuret Pep pg/mL Total Protein (6.3-8.2) g/dL Albumin (3.5-5.0) g/dL Influenza Type A (PCR) Not Detected (Not Detectd) Influenza Type B (PCR) Not Detected (Not Detectd) RSV (PCR) Not Detected (Not Detectd) SARS-CoV-2 (PCR) Not Detected (Not Detectd) 12/27/24 Range/Units 06:25 WBC (4.50-10.00) 10*3/uL RBC (4.10-5.20) 10*6/uL Hgb (12.0-15.0) g/dL Hct (37.2-46.3) % MCV (80.0-97.0) fL MCH (27.0-32.0) pg MCHC (32.0-37.0) g/dL Plt Count (140-440) 10*3/uL MPV (9.5-12.2) fL Immature Gran % (Auto) % Neutrophils % % Lymphocytes % % Monocytes % % Eosinophils % % Basophils % % Immature Gran # (0.00-0.04) 10*3/uL Neutrophils # (1.80-7.70) 10*3/uL Lymphocytes # (0.90-5.00) 10*3/uL Monocytes # (0.20-1.00) 10*3/uL Eosinophils # (0.04-0.35) 10*3/uL Basophils # (0.00-0.10) 10*3/uL Manual Slide Review D-Dimer (<0.60) mg/L FEU Sodium 137 (137-145) mmol/L Potassium 3.7 (3.5-5.1) mmol/L Chloride 103 (98-107) mmol/L Carbon Dioxide 27 (22-30) mmol/L Anion Gap 7 mmol/L BUN 9 (7-17) mg/dL Creatinine 0.69 (0.52-1.04) mg/dL Est GFR (CKD-EPI)AfAm >90 (>60 ml/min/1.73 sqM) Est GFR (CKD-EPI)NonAf >90 (>60 ml/min/1.73 sqM) Glucose 112 H (74-99) mg/dL Calcium 9.1 (8.4-10.2) mg/dL Total Bilirubin 0.4 (0.2-1.3) mg/dL AST 25 (14-36) U/L ALT 14 (4-34) U/L Alkaline Phosphatase 51 (38-126) U/L NT-Pro-B Natriuret Pep 101 pg/mL Total Protein 6.1 L (6.3-8.2) g/dL Albumin 3.5 (3.5-5.0) g/dL Influenza Type A (PCR) (Not Detectd) Influenza Type B (PCR) (Not Detectd) RSV (PCR) (Not Detectd) SARS-CoV-2 (PCR) (Not Detectd) Disposition Clinical Impression: Bronchitis Disposition: HOME SELF-CARE Condition: Good Instructions (If sedation given, give patient instructions): Acute Bronchitis (ED) Prescriptions: predniSONE 60 mg PO DAILY #30 tab Albuterol Inhaler [Ventolin Hfa Inhaler] 2 puff INHALATION Q4HR PRN #8 gm PRN Reason: Wheezing Is patient prescribed a controlled substance at d/c from ED?: No Referrals: Kb Wyatt MD [Primary Care Provider] - 1-2 days
--- NOTE | 2024-12-27 05:53 | XR ---
EXAMINATION TYPE: XR chest 2V DATE OF EXAM: 12/27/2024 CLINICAL INDICATION: Female, 49 years old with history of cough, TECHNIQUE: Frontal and lateral views of the chest are obtained. COMPARISON: Prior chest x-ray November 14, 2024 FINDINGS: There is no focal air space opacity, pleural effusion, or pneumothorax seen. The cardiac silhouette size is stable and within normal limits. The osseous structures are intact. IMPRESSION: No acute pulmonary infiltrate. [facility], , 12/27/2024 5:51 AM
[2024-12-27] MEDS: predniSONE 20 MG TAB PO STA (06:05)
[2024-12-27 06:27] LABS: Influenza A Not Detected (Not Detectd); Influenza B Not Detected (Not Detectd); RSV Not Detected (Not Detectd)
[2024-12-27 06:33] LABS: Basophils # (A) 0.04 10*3/uL (0.00-0.10); Basophils % (A) 0.6 %; Eosinophils # (A) 0.16 10*3/uL (0.04-0.35); Eosinophils % (A) 2.2 %; HCT 35.7 % (37.2-46.3); Lymphocytes # (A) 1.98 10*3/uL (0.90-5.00); Lymphocytes % (A) 27.8 %; MCH 36.5 pg (27.0-32.0); MCHC 33.6 g/dL (32.0-37.0); MCV 108.5 fL (80.0-97.0); Mean Platelet Volume 8.7 fL (9.5-12.2); Monocytes # (A) 0.42 10*3/uL (0.20-1.00); Monocytes % (A) 5.9 %; Neutrophils # (A) 4.49 10*3/uL (1.80-7.70); Neutrophils % (A) 63.1 %; Platelet Count 188 10*3/uL (140-440); RBC 3.29 10*6/uL (4.10-5.20); RDW 13.7 % (11.5-14.5); WBC 7.12 10*3/uL (4.50-10.00)
[2024-12-27] MEDS: ALBUTEROL NEBULIZED 2.5 MG/3 ML INHALATION STA (06:45)
[2024-12-27 06:53] LABS: ALT 14 U/L (4-34); AST 25 U/L (14-36); African American GFR (CKD) >90 (>60 ml/min/1.73 sqM); Albumin 3.5 g/dL (3.5-5.0); Alkaline Phosphatase 51 U/L (38-126); Anion Gap 7 mmol/L; Blood Urea Nitrogen 9 mg/dL (7-17); Calcium 9.1 mg/dL (8.4-10.2); Carbon Dioxide 27 mmol/L (22-30); Chloride 103 mmol/L (98-107); Glucose 112 mg/dL (74-99); Non-African American GFR(CKD) >90 (>60 ml/min/1.73 sqM); Potassium 3.7 mmol/L (3.5-5.1); Sodium 137 mmol/L (137-145); Total Bilirubin 0.4 mg/dL (0.2-1.3); Total Protein 6.1 g/dL (6.3-8.2)
[2024-12-27 07:01] LABS: NT-Pro-B-Type Natriuretic Pept 101 pg/mL
[2024-12-27 07:56] VITALS: BP 138/78; PULSE 78
== END 2024-12-27 07:56 | disposition home or self-care (01) ==
LOC: EC 05:18
DX: J20.9 Acute bronchitis, unspecified (principal); F17.200 Nicotine dependence, unspecified, uncomplicated
CPT/HCPCS: 36415; 94640; 85379; 83880; 80053; 85025; 87636; 71046; 99285; J7512